=== PATIENT | male | born 1990 | race American Indian/Alaskan Native ===

== ENCOUNTER 2016-07-09 20:03 | Inpatient (IN) | payer OTHER ==
[~2016-07-09 20:03] MED LIST: ATIVAN IV ONE
[2016-07-09] MEDS ORDERED: NACL 0.9% 1000 ML 1,000 ML IV ONE ×2 (20:27→22:21)
[2016-07-09] MEDS ORDERED: ATIVAN IV ONE (20:27)
--- NOTE | 2016-07-09 20:35 | Emergency Department Report ---
ED Altered Mental Status HPI - General Stated Complaint: VOMITING BLOOD Time Seen by Provider: 07/09/16 20:26 - History of Present Illness Initial Comments: 25-year-old male with no past medical history brought in by ambulance due to confusion. Patient's sister states that she saw about 3 hours prior to calling EMS and he asked for some fruit, she went to go get him some of when she came back later at home she found him confused and unable to answer questions. She called EMS, and picked up the patient and apparently had vomited blood (I examined the vomitus which was patient bedside and did not appear to be bloody or dark) Patient has been at other ERs over the last week and has been diagnosed with both sinusitis and UTI and is currently on both Augmentin and levofloxacin as well as Motrin and Beattie. Patient is unable to give any history but his sister appears reliable and states that he is currently not using any drugs, last time used and he was marijuana about a month ago. She also states that he has no history of depression or thoughts of hurting himself in the past. No psychiatric history. - Related Data Home Medications Medication Instructions Recorded Confirmed Last Taken Amoxicillin/K Clav Tab [Augmentin 1 tab PO Q12HR 07/09/16 07/09/16 Unknown 875 mg] HYDROcodone/APAP 5-325 [Beattie 1 each PO Q4HR PRN 07/09/16 07/09/16 Unknown 5/325] Ibuprofen [Motrin] 800 mg PO Q8HR PRN 07/09/16 07/09/16 Unknown Levofloxacin [Levaquin TAB] 500 mg PO QDAY 07/09/16 07/09/16 Unknown Ondansetron [Zofran Odt] 4 mg PO Q8HR 07/09/16 07/09/16 Unknown Prednisone [predniSONE 10 mg 10 mg PO .TAPER 07/09/16 07/09/16 Unknown (6-Day Pack, 21 Tabs)] Allergies Allergy/AdvReac Type Severity Reaction Status Date / Time No Known Allergies Allergy Verified 11/06/15 04:00 ED Review of Systems ROS: Stated complaint: VOMITING BLOOD Other details as noted in HPI ED Past Medical Hx - Social History Smoking Status: Never Smoker Substance Use Type: None - Medications Home Medications: Home Medications Medication Instructions Recorded Confirmed Last Taken Type Amoxicillin/K Clav Tab [Augmentin 1 tab PO Q12HR 07/09/16 07/09/16 Unknown History 875 mg] HYDROcodone/APAP 5-325 [Beattie 1 each PO Q4HR PRN 07/09/16 07/09/16 Unknown History 5/325] Ibuprofen [Motrin] 800 mg PO Q8HR PRN 07/09/16 07/09/16 Unknown History Levofloxacin [Levaquin TAB] 500 mg PO QDAY 07/09/16 07/09/16 Unknown History Ondansetron [Zofran Odt] 4 mg PO Q8HR 07/09/16 07/09/16 Unknown History Prednisone [predniSONE 10 mg 10 mg PO .TAPER 07/09/16 07/09/16 Unknown History (6-Day Pack, 21 Tabs)] ED Physical Exam - General Limitations: Other (confused, not verbalizing, unable to follow commands, moves all extremities, appears delirious) General appearance: in distress - Head Head exam: Present: atraumatic - Eye Eye exam: Present: normal appearance, PERRL - ENT ENT exam: Present: normal exam - Respiratory Respiratory exam: Present: normal lung sounds bilaterally. Absent: respiratory distress - Cardiovascular Cardiovascular Exam: Present: regular rate, normal rhythm - GI/Abdominal GI/Abdominal exam: Present: soft, other (bladder is palpable and distended). Absent: tenderness - Neurological Exam Neurological exam: Present: other (unable to follow commands, moves all extremities spontaneously, confused and appears delirious) - Psychiatric Psychiatric exam: Present: other (agitated) - Skin Skin exam: Present: intact ED Course Vital Signs 07/09/16 07/09/16 07/09/16 20:10 20:15 20:25 Temperature 98.2 F Pulse Rate 57 L 59 L Respiratory 15 12 Rate Blood Pressure 153/87 145/85 O2 Sat by Pulse 98 87 97 Oximetry 07/09/16 07/09/16 07/09/16 20:30 20:45 21:00 Temperature Pulse Rate 59 L 61 53 L Respiratory 11 L 21 17 Rate Blood Pressure 137/73 147/85 114/84 O2 Sat by Pulse 93 95 95 Oximetry 07/09/16 07/09/16 07/09/16 21:07 21:15 21:21 Temperature Pulse Rate 60 57 L 56 L Respiratory 16 9 L 13 Rate Blood Pressure 155/93 136/67 O2 Sat by Pulse 98 93 96 Oximetry 07/09/16 07/09/16 07/09/16 21:25 21:26 21:31 Temperature Pulse Rate 60 57 L Respiratory 14 16 12 Rate Blood Pressure 142/77 102/65 O2 Sat by Pulse 96 97 Oximetry 07/09/16 07/09/16 07/09/16 21:35 21:40 21:45 Temperature Pulse Rate 59 L 55 L 50 L Respiratory 22 19 15 Rate Blood Pressure 152/72 131/71 161/71 O2 Sat by Pulse 92 96 87 Oximetry 07/09/16 07/09/16 07/09/16 21:51 21:55 22:00 Temperature Pulse Rate 53 L 77 91 H Respiratory 13 15 20 Rate Blood Pressure 175/91 163/92 181/94 O2 Sat by Pulse 84 90 88 Oximetry 07/09/16 07/09/16 07/09/16 22:39 22:45 23:00 Temperature Pulse Rate 66 74 60 Respiratory 16 17 27 H Rate Blood Pressure 163/79 163/79 135/86 O2 Sat by Pulse 98 96 Oximetry 07/09/16 07/09/16 07/09/16 23:15 23:30 23:45 Temperature Pulse Rate 66 63 65 Respiratory 21 24 22 Rate Blood Pressure 142/79 140/80 150/78 O2 Sat by Pulse 93 95 93 Oximetry - Reevaluation(s) Reevaluation #1: 07/10/16 00:28 Patient less agitated, spoke to patient's family including brother, sister and [id number], explained to them that the etiology of his symptoms isn't completely clear but may be due to anticholinergic syndrome. On reexamination his mental status has not improved however appears less agitated. CT of the head and abdominal pelvis CT are unremarkable, labs unremarkable and elevated lactic acid. We'll admit the patient. - Consultations Consultation #1: 07/09/16 23:04 Spoke to scraper operator at poison control center, think that this may be due to an anticholinergic toxicity but not completely fitting picture given the lack of tachycardia and normal pupil exam. Recommend supportive medical treatment. - Lab Data Result diagrams: 07/09/16 20:40 07/09/16 20:40 Lab Results 07/09/16 07/09/16 07/09/16 Range/Units 20:12 20:35 20:35 WBC (4.5-11.0) K/mm3 RBC (3.65-5.03) M/mm3 Hgb (11.8-15.2) gm/dl Hct (35.5-45.6) % MCV (84-94) fl MCH (28-32) pg MCHC (32-34) % RDW (13.2-15.2) % Plt Count (140-440) K/mm3 Lymph % (Auto) (13.4-35.0) % [place] % (Auto) (0.0-7.3) % Eos % (Auto) (0.0-4.3) % Baso % (Auto) (0.0-1.8) % Lymph # (1.2-5.4) K/mm3 [place] # (0.0-0.8) K/mm3 Eos # (0.0-0.4) K/mm3 Baso # (0.0-0.1) K/mm3 Seg Neutrophils % (40.0-70.0) % Seg Neutrophils # (1.8-7.7) K/mm3 PT (12.2-14.9) Sec. INR (0.87-1.13) APTT (24.2-36.6) Sec. Sodium (137-145) mmol/L Potassium (3.6-5.0) mmol/L Chloride (98-107) mmol/L Carbon Dioxide (22-30) mmol/L Anion Gap mmol/L BUN (9-20) mg/dL Creatinine (0.8-1.5) mg/dL Estimated GFR ml/min BUN/Creatinine Ratio % Glucose (75-100) mg/dL POC Glucose 144 H (70-105) Lactic Acid (0.7-2.0) mmol/L Calcium (8.4-10.2) mg/dL Total Bilirubin (0.1-1.2) mg/dL Direct Bilirubin (0-0.2) mg/dL Indirect Bilirubin mg/dL AST (5-40) units/L ALT (7-56) units/L Alkaline Phosphatase (35-129) units/L Ammonia (25-60) umol/L Troponin T (0.00-0.029) ng/mL Total Protein (6.3-8.2) g/dL Albumin (3.9-5) g/dL Albumin/Globulin Ratio % TSH (0.270-4.200) mlU/mL Urine Color Yellow (Yellow) Urine Turbidity Clear (Clear) Urine pH 6.0 (5.0-7.0) Ur Specific [place] 1.015 (1.003-1.030) Urine Protein 30 mg/dl (Negative) mg/dL Urine Glucose (UA) 50 (Negative) mg/dL Urine Ketones Tr (Negative) mg/dL Urine Blood Mod (Negative) Urine Nitrite Neg (Negative) Urine Bilirubin Neg (Negative) Urine Urobilinogen < 2.0 (<2.0) mg/dL Ur Leukocyte Esterase Neg (Negative) Urine WBC (Auto) 1.0 (0.0-6.0) /HPF Urine RBC (Auto) 2.0 (0.0-6.0) /HPF Urine Mucus Few /HPF Salicylates (2.8-20.0) mg/dL Urine Opiates Screen Presumptive negative Urine Methadone Screen Presumptive negative Acetaminophen (10.0-30.0) ug/mL Ur Barbiturates Screen Presumptive negative Ur Phencyclidine Scrn Presumptive negative Ur Amphetamines Screen Presumptive negative U Benzodiazepines Scrn Presumptive negative Urine Cocaine Screen Presumptive negative U Marijuana (THC) Screen Presumptive negative Drugs of Abuse Note Disclamer Plasma/Serum Alcohol (0-0.07) gm% Blood Type Antibody Screen EDSON Antibody Screen 07/09/16 07/09/16 07/09/16 Range/Units 20:35 20:40 20:40 WBC 5.4 (4.5-11.0) K/mm3 RBC 3.96 (3.65-5.03) M/mm3 Hgb 12.7 (11.8-15.2) gm/dl Hct 36.6 (35.5-45.6) % MCV 92 (84-94) fl MCH 32 (28-32) pg MCHC 35 H (32-34) % RDW 13.2 (13.2-15.2) % Plt Count 143 (140-440) K/mm3 Lymph % (Auto) 6.4 L (13.4-35.0) % [place] % (Auto) 7.0 (0.0-7.3) % Eos % (Auto) 0.1 (0.0-4.3) % Baso % (Auto) 0.1 (0.0-1.8) % Lymph # 0.3 L (1.2-5.4) K/mm3 [place] # 0.4 (0.0-0.8) K/mm3 Eos # 0.0 (0.0-0.4) K/mm3 Baso # 0.0 (0.0-0.1) K/mm3 Seg Neutrophils % 86.4 H (40.0-70.0) % Seg Neutrophils # 4.6 (1.8-7.7) K/mm3 PT 14.2 (12.2-14.9) Sec. INR 1.11 (0.87-1.13) APTT 24.4 (24.2-36.6) Sec. Sodium (137-145) mmol/L Potassium (3.6-5.0) mmol/L Chloride (98-107) mmol/L Carbon Dioxide (22-30) mmol/L Anion Gap mmol/L BUN (9-20) mg/dL Creatinine (0.8-1.5) mg/dL Estimated GFR ml/min BUN/Creatinine Ratio % Glucose (75-100) mg/dL POC Glucose (70-105) Lactic Acid (0.7-2.0) mmol/L Calcium (8.4-10.2) mg/dL Total Bilirubin (0.1-1.2) mg/dL Direct Bilirubin (0-0.2) mg/dL Indirect Bilirubin mg/dL AST (5-40) units/L ALT (7-56) units/L Alkaline Phosphatase (35-129) units/L Ammonia (25-60) umol/L Troponin T (0.00-0.029) ng/mL Total Protein (6.3-8.2) g/dL Albumin (3.9-5) g/dL Albumin/Globulin Ratio % TSH (0.270-4.200) mlU/mL Urine Color (Yellow) Urine Turbidity (Clear) Urine pH (5.0-7.0) Ur Specific [place] (1.003-1.030) Urine Protein (Negative) mg/dL Urine Glucose (UA) (Negative) mg/dL Urine Ketones (Negative) mg/dL Urine Blood (Negative) Urine Nitrite (Negative) Urine Bilirubin (Negative) Urine Urobilinogen (<2.0) mg/dL Ur Leukocyte Esterase (Negative) Urine WBC (Auto) (0.0-6.0) /HPF Urine RBC (Auto) (0.0-6.0) /HPF Urine Mucus /HPF Salicylates (2.8-20.0) mg/dL Urine Opiates Screen Urine Methadone Screen Acetaminophen (10.0-30.0) ug/mL Ur Barbiturates Screen Ur Phencyclidine Scrn Ur Amphetamines Screen U Benzodiazepines Scrn Urine Cocaine Screen U Marijuana (THC) Screen Drugs of Abuse Note Plasma/Serum Alcohol (0-0.07) gm% Blood Type AB POSITIVE Antibody Screen TNR EDSON Antibody Screen Negative 07/09/16 07/09/16 07/09/16 Range/Units 20:40 20:40 20:40 WBC (4.5-11.0) K/mm3 RBC (3.65-5.03) M/mm3 Hgb (11.8-15.2) gm/dl Hct (35.5-45.6) % MCV (84-94) fl MCH (28-32) pg MCHC (32-34) % RDW (13.2-15.2) % Plt Count (140-440) K/mm3 Lymph % (Auto) (13.4-35.0) % [place] % (Auto) (0.0-7.3) % Eos % (Auto) (0.0-4.3) % Baso % (Auto) (0.0-1.8) % Lymph # (1.2-5.4) K/mm3 [place] # (0.0-0.8) K/mm3 Eos # (0.0-0.4) K/mm3 Baso # (0.0-0.1) K/mm3 Seg Neutrophils % (40.0-70.0) % Seg Neutrophils # (1.8-7.7) K/mm3 PT (12.2-14.9) Sec. INR (0.87-1.13) APTT (24.2-36.6) Sec. Sodium 133 L (137-145) mmol/L Potassium 4.0 (3.6-5.0) mmol/L Chloride 94.1 L (98-107) mmol/L Carbon Dioxide 24 (22-30) mmol/L Anion Gap 19 mmol/L BUN 14 (9-20) mg/dL Creatinine 0.6 L (0.8-1.5) mg/dL Estimated GFR > 60 ml/min BUN/Creatinine Ratio 23.33 % Glucose 136 H (75-100) mg/dL POC Glucose (70-105) Lactic Acid 3.10 H* (0.7-2.0) mmol/L Calcium 8.7 (8.4-10.2) mg/dL Total Bilirubin 0.80 (0.1-1.2) mg/dL Direct Bilirubin 0.2 (0-0.2) mg/dL Indirect Bilirubin 0.6 mg/dL AST 29 (5-40) units/L ALT 16 (7-56) units/L Alkaline Phosphatase 60 (35-129) units/L Ammonia 42.0 (25-60) umol/L Troponin T < 0.010 (0.00-0.029) ng/mL Total Protein 6.7 (6.3-8.2) g/dL Albumin 3.8 L (3.9-5) g/dL Albumin/Globulin Ratio 1.3 % TSH (0.270-4.200) mlU/mL Urine Color (Yellow) Urine Turbidity (Clear) Urine pH (5.0-7.0) Ur Specific [place] (1.003-1.030) Urine Protein (Negative) mg/dL Urine Glucose (UA) (Negative) mg/dL Urine Ketones (Negative) mg/dL Urine Blood (Negative) Urine Nitrite (Negative) Urine Bilirubin (Negative) Urine Urobilinogen (<2.0) mg/dL Ur Leukocyte Esterase (Negative) Urine WBC (Auto) (0.0-6.0) /HPF Urine RBC (Auto) (0.0-6.0) /HPF Urine Mucus /HPF Salicylates (2.8-20.0) mg/dL Urine Opiates Screen Urine Methadone Screen Acetaminophen (10.0-30.0) ug/mL Ur Barbiturates Screen Ur Phencyclidine Scrn Ur Amphetamines Screen U Benzodiazepines Scrn Urine Cocaine Screen U Marijuana (THC) Screen Drugs of Abuse Note Plasma/Serum Alcohol (0-0.07) gm% Blood Type Antibody Screen EDSON Antibody Screen 07/09/16 07/09/16 07/09/16 Range/Units 20:40 20:40 20:40 WBC (4.5-11.0) K/mm3 RBC (3.65-5.03) M/mm3 Hgb (11.8-15.2) gm/dl Hct (35.5-45.6) % MCV (84-94) fl MCH (28-32) pg MCHC (32-34) % RDW (13.2-15.2) % Plt Count (140-440) K/mm3 Lymph % (Auto) (13.4-35.0) % [place] % (Auto) (0.0-7.3) % Eos % (Auto) (0.0-4.3) % Baso % (Auto) (0.0-1.8) % Lymph # (1.2-5.4) K/mm3 [place] # (0.0-0.8) K/mm3 Eos # (0.0-0.4) K/mm3 Baso # (0.0-0.1) K/mm3 Seg Neutrophils % (40.0-70.0) % Seg Neutrophils # (1.8-7.7) K/mm3 PT (12.2-14.9) Sec. INR (0.87-1.13) APTT (24.2-36.6) Sec. Sodium (137-145) mmol/L Potassium (3.6-5.0) mmol/L Chloride (98-107) mmol/L Carbon Dioxide (22-30) mmol/L Anion Gap mmol/L BUN (9-20) mg/dL Creatinine (0.8-1.5) mg/dL Estimated GFR ml/min BUN/Creatinine Ratio % Glucose (75-100) mg/dL POC Glucose (70-105) Lactic Acid (0.7-2.0) mmol/L Calcium (8.4-10.2) mg/dL Total Bilirubin (0.1-1.2) mg/dL Direct Bilirubin (0-0.2) mg/dL Indirect Bilirubin mg/dL AST (5-40) units/L ALT (7-56) units/L Alkaline Phosphatase (35-129) units/L Ammonia (25-60) umol/L Troponin T (0.00-0.029) ng/mL Total Protein (6.3-8.2) g/dL Albumin (3.9-5) g/dL Albumin/Globulin Ratio % TSH 2.610 (0.270-4.200) mlU/mL Urine Color (Yellow) Urine Turbidity (Clear) Urine pH (5.0-7.0) Ur Specific [place] (1.003-1.030) Urine Protein (Negative) mg/dL Urine Glucose (UA) (Negative) mg/dL Urine Ketones (Negative) mg/dL Urine Blood (Negative) Urine Nitrite (Negative) Urine Bilirubin (Negative) Urine Urobilinogen (<2.0) mg/dL Ur Leukocyte Esterase (Negative) Urine WBC (Auto) (0.0-6.0) /HPF Urine RBC (Auto) (0.0-6.0) /HPF Urine Mucus /HPF Salicylates < 0.3 L (2.8-20.0) mg/dL Urine Opiates Screen Urine Methadone Screen Acetaminophen < 15.0 (10.0-30.0) ug/mL Ur Barbiturates Screen Ur Phencyclidine Scrn Ur Amphetamines Screen U Benzodiazepines Scrn Urine Cocaine Screen U Marijuana (THC) Screen Drugs of Abuse Note Plasma/Serum Alcohol (0-0.07) gm% Blood Type Antibody Screen EDSON Antibody Screen 07/09/16 Range/Units 20:40 WBC (4.5-11.0) K/mm3 RBC (3.65-5.03) M/mm3 Hgb (11.8-15.2) gm/dl Hct (35.5-45.6) % MCV (84-94) fl MCH (28-32) pg MCHC (32-34) % RDW (13.2-15.2) % Plt Count (140-440) K/mm3 Lymph % (Auto) (13.4-35.0) % [place] % (Auto) (0.0-7.3) % Eos % (Auto) (0.0-4.3) % Baso % (Auto) (0.0-1.8) % Lymph # (1.2-5.4) K/mm3 [place] # (0.0-0.8) K/mm3 Eos # (0.0-0.4) K/mm3 Baso # (0.0-0.1) K/mm3 Seg Neutrophils % (40.0-70.0) % Seg Neutrophils # (1.8-7.7) K/mm3 PT (12.2-14.9) Sec. INR (0.87-1.13) APTT (24.2-36.6) Sec. Sodium (137-145) mmol/L Potassium (3.6-5.0) mmol/L Chloride (98-107) mmol/L Carbon Dioxide (22-30) mmol/L Anion Gap mmol/L BUN (9-20) mg/dL Creatinine (0.8-1.5) mg/dL Estimated GFR ml/min BUN/Creatinine Ratio % Glucose (75-100) mg/dL POC Glucose (70-105) Lactic Acid (0.7-2.0) mmol/L Calcium (8.4-10.2) mg/dL Total Bilirubin (0.1-1.2) mg/dL Direct Bilirubin (0-0.2) mg/dL Indirect Bilirubin mg/dL AST (5-40) units/L ALT (7-56) units/L Alkaline Phosphatase (35-129) units/L Ammonia (25-60) umol/L Troponin T (0.00-0.029) ng/mL Total Protein (6.3-8.2) g/dL Albumin (3.9-5) g/dL Albumin/Globulin Ratio % TSH (0.270-4.200) mlU/mL Urine Color (Yellow) Urine Turbidity (Clear) Urine pH (5.0-7.0) Ur Specific [place] (1.003-1.030) Urine Protein (Negative) mg/dL Urine Glucose (UA) (Negative) mg/dL Urine Ketones (Negative) mg/dL Urine Blood (Negative) Urine Nitrite (Negative) Urine Bilirubin (Negative) Urine Urobilinogen (<2.0) mg/dL Ur Leukocyte Esterase (Negative) Urine WBC (Auto) (0.0-6.0) /HPF Urine RBC (Auto) (0.0-6.0) /HPF Urine Mucus /HPF Salicylates (2.8-20.0) mg/dL Urine Opiates Screen Urine Methadone Screen Acetaminophen (10.0-30.0) ug/mL Ur Barbiturates Screen Ur Phencyclidine Scrn Ur Amphetamines Screen U Benzodiazepines Scrn Urine Cocaine Screen U Marijuana (THC) Screen Drugs of Abuse Note Plasma/Serum Alcohol < 0.01 (0-0.07) gm% Blood Type Antibody Screen EDSON Antibody Screen - Medical Decision Making Finger stick, EKG, IV, labs, IV fluids, Ativan Bedside also understand and showed a distended bladder, Huntley placed with 1500 mL output, right upper quadrant ultrasound was also done which showed a small amount of free fluid in the hepatorenal space Rectal temperature normal ED of head as well as CT the abdomen and pelvis ordered Critical care attestation.: If time is entered above; I have spent that time in minutes in the direct care of this critically ill patient, excluding procedure time. ED Disposition Clinical Impression: Delirium Disposition: OP ADMITTED IP TO THIS HOSP Is pt being admited?: Yes Does the pt Need Aspirin: No Condition: Stable Referrals: PRIMARY CARE, [Primary Care Provider] - 3-5 Days Time of Disposition: 00:29 (Spoke to Dr. Restrepo, will admit)
[2016-07-09 20:53] LABS: Basophils % (Auto) 0.1 % (0.0-1.8); Eosinophils % (Auto) 0.1 % (0.0-4.3); Hematocrit 36.6 % (35.5-45.6); Hemoglobin 12.7 gm/dl (11.8-15.2); Mean Corpuscular HGB Conc 35 % (32-34); Mean Corpuscular Hemoglobin 32 pg (28-32); Mean Corpuscular Volume 92 fl (84-94); Platelet Count 143 K/mm3 (140-440); Red Blood Count 3.96 M/mm3 (3.65-5.03); Red Cell Distribution Width 13.2 % (13.2-15.2); White Blood Count 5.4 K/mm3 (4.5-11.0)
[2016-07-09] MEDS ORDERED: NACL ONE (21:06)
[2016-07-09 21:08] LABS: Urine Drugs of Abuse Note Disclamer
[2016-07-09 21:09] LABS: INR 1.11 (0.87-1.13)
[2016-07-09 21:10] LABS: Partial Thromboplastin Time 24.4 Sec. (24.2-36.6)
[2016-07-09 21:17] LABS: Alanine Aminotransferase 16 units/L (7-56); Albumin 3.8 g/dL (3.9-5); Albumin/Globulin Ratio 1.3 %; Alkaline Phosphatase 60 units/L (35-129); Anion Gap 19 mmol/L; BUN/Creatinine Ratio 23.33; Bilirubin,Direct 0.2 mg/dL (0-0.2); Bilirubin,Indirect 0.6 mg/dL; Blood Urea Nitrogen 14 mg/dL (9-20); Calcium 8.7 mg/dL (8.4-10.2); Carbon Dioxide 24 mmol/L (22-30); Chloride 94.1 mmol/L (98-107); Glucose 136 mg/dL (75-100); Sodium 133 mmol/L (137-145); Total Protein 6.7 g/dL (6.3-8.2)
[2016-07-09 21:19] LABS: Bilirubin,Urine NEG (Negative); Blood,Urine MOD (Negative); Ketones,Urine TR mg/dL (Negative); Leukocyte Esterase,Urine NEG (Negative); Mucus,Urine FEW /HPF; Nitrite,Urine NEG (Negative); Urobilinogen,Urine < 2.0 mg/dL (<2.0)
[2016-07-09] MEDS ORDERED: ATIVAN ONE (22:12)
--- NOTE | 2016-07-09 23:46 | Cat Scan Report ---
FINAL REPORT EXAM: CT HEAD/BRAIN WO CON HISTORY: Altered Mental Status TECHNIQUE: Noncontrast CT axial images of the brain. PRIORS: None. FINDINGS: No parenchymal mass, mass effect, hemorrhage, midline shift or hydrocephalus. No evidence of acute cortical infarct. No abnormal, extra-axial fluid or air collection. Osseous calvarium grossly intact. Probable mucous retention cyst versus polyp in the left ethmoid air cell. IMPRESSION: 1. No acute intracranial findings.
--- NOTE | 2016-07-09 23:53 | Cat Scan Report ---
FINAL REPORT EXAM: CT ABDOMEN PELVIS W CON HISTORY: abd pain vomiting, ams, u/s shows free fluid ruq TECHNIQUE: Spiral CT scanning of the abdomen and pelvis after the uneventful administration of IV contrast. Multiplanar reformations. 100 mL Omnipaque IV. PRIORS: 06 November 2015. FINDINGS: Abdomen: Motion artifact limits examination somewhat. Visualized lung bases grossly unremarkable. No radiopaque gallstones. Liver without significant abnormality. Spleen without significant abnormality. Pancreas without significant abnormality. Kidneys without significant abnormality. Adrenal glands without significant abnormality. Pelvis: Bowel evaluation limited due to lack of oral contrast administration, but grossly unremarkable. Appendix is not confidently identified. No significant free peritoneal fluid or discrete abscess. Abdominal aorta non-aneurysmal. Huntley catheter balloon and some gas noted within the urinary bladder. IMPRESSION: 1. No acute findings.
--- NOTE | 2016-07-10 01:20 | History and Physical Report ---
History of Present Illness Chief complaint: Unresponsive History of present illness: 25 YO Male with No PMH presents to ED for evaluation. Pt unresponsive and unable to provide history. Pt sister is at bedside and provides history. Pt family states that pt has experienced headache, and not feeling well over the past 7 days with worsening symptoms over the past 3 hours. Pt has experienced multiple ED visits and was prescribed oral antibiotics without relief. Pt was in his usual state of health 3 hours prior to calling EMS. Pt asked sister for some fruit and when she returned pt was found unconscious and unresponsive. EMS notified. Pt experienced a seizure as per sister while waiting for EMS transport. Pt sister also states that pt vomited blood. Pt recently incarcerated , but sister denies known tick bites, animal bites, photophobia, known exposure to rabies, known TB exposure, skin rash, trauma, drug use, hematuria, HIV risk factors, tetanus exposure. Past History Past Medical History: No medical history, other (reviewed) Past Surgical History: No surgical history, Other (reviewed) Social history: single, lives with family Family history: hypertension Medications and Allergies Allergies Allergy/AdvReac Type Severity Reaction Status Date / Time No Known Allergies Allergy Verified 11/06/15 04:00 Home Medications Medication Instructions Recorded Confirmed Last Taken Type Amoxicillin/K Clav Tab [Augmentin 1 tab PO Q12HR 07/09/16 07/09/16 Unknown History 875 mg] HYDROcodone/APAP 5-325 [[place] 1 each PO Q4HR PRN 07/09/16 07/09/16 Unknown History 5/325] Ibuprofen [Motrin] 800 mg PO Q8HR PRN 07/09/16 07/09/16 Unknown History Levofloxacin [Levaquin TAB] 500 mg PO QDAY 07/09/16 07/09/16 Unknown History Ondansetron [Zofran Odt] 4 mg PO Q8HR 07/09/16 07/09/16 Unknown History Prednisone [predniSONE 10 mg 10 mg PO .TAPER 07/09/16 07/09/16 Unknown History (6-Day Pack, 21 Tabs)] Review of Systems ROS unobtainable: due to mental status Exam - Constitutional Vitals: Temp Pulse Resp BP Pulse Ox 98.2 F 68 27 H 135/72 97 07/09/16 20:25 07/10/16 00:31 07/10/16 00:31 07/10/16 00:31 07/10/16 00:31 General appearance: Present: mild distress - EENT Eyes: Present: PERRL ENT: hearing intact, clear oral mucosa - Neck Neck: Present: supple, normal ROM - Respiratory Respiratory effort: normal Respiratory: bilateral: CTA - Cardiovascular Heart Sounds: Present: S1 & S2. Absent: rub, click - Extremities Extremities: pulses symmetrical, No edema Peripheral Pulses: within normal limits - Abdominal General gastrointestinal: Present: soft, non-tender, non-distended, normal bowel sounds Male genitourinary: Present: normal - Integumentary Integumentary: Present: clear, warm, dry - Musculoskeletal Musculoskeletal: generalized weakness - Psychiatric Psychiatric: no intact judgment & insight, no memory intact - Neurologic Neurologic: CNII-XII intact, no gait normal Results - Labs CBC & Chem 7: 07/09/16 20:40 07/09/16 20:40 Labs: Abnormal lab results 07/09/16 07/09/16 07/09/16 Range/Units 20:12 20:40 20:40 MCHC 35 H (32-34) % Lymph % (Auto) 6.4 L (13.4-35.0) % Lymph # 0.3 L (1.2-5.4) K/mm3 Seg Neutrophils % 86.4 H (40.0-70.0) % Sodium 133 L (137-145) mmol/L Chloride 94.1 L (98-107) mmol/L Creatinine 0.6 L (0.8-1.5) mg/dL Glucose 136 H (75-100) mg/dL POC Glucose 144 H (70-105) Lactic Acid (0.7-2.0) mmol/L Albumin 3.8 L (3.9-5) g/dL Salicylates (2.8-20.0) mg/dL 07/09/16 07/09/16 Range/Units 20:40 20:40 MCHC (32-34) % Lymph % (Auto) (13.4-35.0) % Lymph # (1.2-5.4) K/mm3 Seg Neutrophils % (40.0-70.0) % Sodium (137-145) mmol/L Chloride (98-107) mmol/L Creatinine (0.8-1.5) mg/dL Glucose (75-100) mg/dL POC Glucose (70-105) Lactic Acid 3.10 H* (0.7-2.0) mmol/L Albumin (3.9-5) g/dL Salicylates < 0.3 L (2.8-20.0) mg/dL Assessment and Plan - Patient Problems (1) Encephalopathy acute Current Visit: Yes Status: Acute Plan to address problem: Will treat patient with empiric thearpy: Acyclovir, IV abx, HSV titre, Rapid HIV , IR consulted for LP, supportive care, CT Head, CT abdomen pelvis, ESR, CRP (2) Seizure Current Visit: Yes Status: Acute Plan to address problem: Keppra loading dose, EEG, supportive care. (3) Lactic acidosis Current Visit: Yes Status: Acute Plan to address problem: IVF, supportive care, monitor uop q shift, lactic acid in am. (4) DVT prophylaxis Current Visit: Yes Status: Acute
--- NOTE | 2016-07-10 02:09 | XRay Report ---
FINAL REPORT EXAM: XR ABDOMEN 1V AP HISTORY: s/p ng TECHNIQUE: KUB view of abdomen. PRIORS: None. FINDINGS: NG tube extends below the diaphragm, with tip projected over left upper quadrant. Nonspecific bowel gas pattern without evidence of mechanical obstruction. No apparent pneumoperitoneum. No abnormal calcifications. Osseous structures grossly unremarkable. Opacification of urinary bladder. IMPRESSION: 1. NG tube position as reported. 2. Nonspecific bowel gas pattern, which may represent adynamic ileus. Followup may be warranted.
[2016-07-10] MEDS ORDERED: VANCOMYCIN/NS 1 GM/250 ML 1 GM/250 ML BAG IV ONE (02:12)
[2016-07-10] MEDS ORDERED: VANCOMYCIN VIAL IV ONE (02:13)
[2016-07-10] MEDS ORDERED: TYLENOL PO PRN (02:14)
[2016-07-10] MEDS ORDERED: DULCOLAX PR PRN (02:14)
[2016-07-10] MEDS ORDERED: ZOFRAN IV PRN (02:14)
[2016-07-10] MEDS ORDERED: DUONEB 0.5 MG-3 MG/3 ML SOLN IH PRN (02:14)
[2016-07-10] MEDS ORDERED: MILK OF MAGNESIA PO PRN (02:14)
[2016-07-10] MEDS ORDERED: PROVENTIL IH PRN (02:39)
[2016-07-10] MEDS ORDERED: NACL 0.45% 1000 ML 1,000 ML IV SCH (03:00)
[2016-07-10] MEDS ORDERED: VANCOMYCIN PHARMACY TO DOSE IV SCH (03:00)
[2016-07-10 03:36] LABS: Erythrocyte Sedimentation Rate 9 mm/Hr (0-20); HIV-1 Antigen p24 Non React (Non React); HIVR-1/2 Ab Non React (Non React)
[2016-07-10] MEDS ORDERED: VANCOMYCIN 1,500 MG in NACL 0.9% 500 ML 500 ML IV ONE (04:00)
[2016-07-10] MEDS: NACL 0.9% IV SCH ×3 (06:24→21:28)
[2016-07-10] MEDS: ZOVIRAX IV SCH ×3 (06:24→21:28)
[2016-07-10] MEDS: KEPPRA 500 MG in D5W 100 ML IV SCH ×2 (09:21→22:10)
[2016-07-10] MEDS: ROCEPHIN/NS 2 GM/100 ML 2 GM/100 ML BAG IV SCH ×2 (10:38→23:29)
--- NOTE | 2016-07-10 11:12 | XRay Report ---
AP CHEST : 07/09/16 20:03:00 CLINICAL: Altered mental status. COMPARISON:None FINDINGS: Normal heart and pulmonary vessels. The lungs are normally expanded and clear. The bones and soft tissues are unremarkable. IMPRESSION: Normal chest.
[2016-07-10] MEDS: VANCOMYCIN 1,250 MG in NACL 0.9% 250ML 250 ML IV SCH ×2 (12:00→20:43)
[2016-07-10] MEDS ORDERED: ATIVAN IV PRN (13:54)
[2016-07-10] MEDS ORDERED: APRESOLINE IV PRN (13:59)
--- NOTE | 2016-07-10 14:37 | Event Note ---
Date: 07/10/16 Patient got intubated for airway protection and aspiration.
[2016-07-10 14:50] LABS: Hematocrit 41.4 % (35.5-45.6); Mean Corpuscular HGB Conc 34 % (32-34); Mean Corpuscular Hemoglobin 32 pg (28-32); Mean Corpuscular Volume 93 fl (84-94); Platelet Count 169 K/mm3 (140-440); Red Blood Count 4.46 M/mm3 (3.65-5.03); White Blood Count 9.7 K/mm3 (4.5-11.0)
[2016-07-10 15:01] LABS: Anion Gap 19 mmol/L; Blood Urea Nitrogen 11 mg/dL (9-20); Calcium 9.1 mg/dL (8.4-10.2); Carbon Dioxide 22 mmol/L (22-30); Chloride 93.8 mmol/L (98-107); Glucose 149 mg/dL (75-100); Potassium 3.7 mmol/L (3.6-5.0); Sodium 131 mmol/L (137-145)
--- NOTE | 2016-07-10 15:07 | Consultation ---
History of Present Illness Consult date: 07/10/16 Requesting physician: MALIA PETERSON Reason for consult: pneumonia, other (Acute Encephalopathy) History of present illness: PULMONARY/CCM CONSULT NOTE (Full dictation # [id number]) Please see dictated notes for full details Past History Past Medical History: No medical history, other (reviewed) Past Surgical History: No surgical history, Other (reviewed) Social history: single, lives with family Family history: hypertension Medications and Allergies Allergies Allergy/AdvReac Type Severity Reaction Status Date / Time No Known Allergies Allergy Verified 11/06/15 04:00 Home Medications Medication Instructions Recorded Confirmed Last Taken Type Amoxicillin/K Clav Tab [Augmentin 1 tab PO Q12HR 07/09/16 07/09/16 Unknown History 875 mg] HYDROcodone/APAP 5-325 [Gilman 1 each PO Q4HR PRN 07/09/16 07/09/16 Unknown History 5/325] Ibuprofen [Motrin] 800 mg PO Q8HR PRN 07/09/16 07/09/16 Unknown History Levofloxacin [Levaquin TAB] 500 mg PO QDAY 07/09/16 07/09/16 Unknown History Ondansetron [Zofran Odt] 4 mg PO Q8HR 07/09/16 07/09/16 Unknown History Prednisone [predniSONE 10 mg 10 mg PO .TAPER 07/09/16 07/09/16 Unknown History (6-Day Pack, 21 Tabs)] Active Meds: Active Medications Acetaminophen (Tylenol) 650 mg PO Q4H PRN PRN Reason: Pain MILD(1-3)/Fever >100.5/GUTIERREZ Albuterol (Proventil) 2.5 mg IH Q6HRT PRN PRN Reason: Shortness Of Breath Bisacodyl (Dulcolax) 10 mg CO QDAY PRN PRN Reason: Constipation unrelieved by MOM Hydralazine HCl (Apresoline) 5 mg IV Q30MIN PRN PRN Reason: Hypertension Acyclovir 770 mg/ Sodium (Chloride) 115.4 mls @ 100 mls/hr IV Q8HR DANNY PRN Reason: Protocol Last Admin: 07/10/16 06:24 Dose: 100 mls/hr Sodium Chloride (Nacl 0.45% 1000 Ml) 1,000 mls @ 125 mls/hr IV DIRECT DANNY Last Admin: 07/10/16 04:20 Dose: 125 mls/hr Vancomycin HCl 1,250 mg/ (Sodium Chloride) 275 mls @ 166.667 mls/hr IV Q8H [facility] Last Admin: 07/10/16 12:00 Dose: 166.667 mls/hr Levetiracetam 500 mg/ Dextrose 105 mls @ 400 mls/hr IV Q12HR [facility] Last Admin: 07/10/16 09:21 Dose: 400 mls/hr Ceftriaxone Sodium (Rocephin/Ns 2 Gm/100 Ml) 2 gm in 100 mls @ 200 mls/hr IV Q12HR [facility] Last Admin: 07/10/16 10:38 Dose: 200 mls/hr Lorazepam (Ativan) 2 mg IV Q4H PRN PRN Reason: Agitation Last Admin: 07/10/16 14:04 Dose: 2 mg Magnesium Hydroxide (Milk Of Magnesia) 30 ml PO Q4H PRN PRN Reason: Constipation Ondansetron HCl (Zofran) 4 mg IV Q8H PRN PRN Reason: N/V unrelieved by Areli Vancomycin HCl (Vancomycin Pharmacy To Dose) 1 each IV PKCONSULT DANNY PRN Reason: Protocol Physical Examination Vital signs: Vital Signs Pulse Ox 98 07/09/16 20:10 Results - Laboratory Findings CBC and BMP: 07/10/16 14:36 07/10/16 14:36 PT/INR, D-dimer PT 14.2 Sec. (12.2-14.9) 07/09/16 20:40 INR 1.11 (0.87-1.13) 07/09/16 20:40 Abnormal lab findings: Abnormal Labs 07/10/16 07/10/16 14:36 14:36 RDW 13.0 L Sodium 131 L Chloride 93.8 L Creatinine 0.5 L Glucose 149 H
[2016-07-10] MEDS ORDERED: DIPRIVAN 10 MG/ML 1,000 MG/100 ML BOTTLE IV ONE (15:18)
[2016-07-10] MEDS ORDERED: NACL 0.9% 1,000 ML IR ONE (15:42)
[2016-07-10] MEDS ORDERED: XYLOCAINE 2% INFILTRATI ONE (15:43)
[2016-07-10] MEDS: DIPRIVAN 10 MG/ML 1,000 MG/100 ML BOTTLE IV SCH ×2 (15:45→23:44)
[2016-07-10] MEDS ORDERED: ARTIFICIAL TEARS OPHTH OINT OU PRN (15:46)
[2016-07-10] MEDS ORDERED: VASELINE LIP THERAPY TP PRN (15:46)
[2016-07-10 15:48] LABS: ISTAT Base Excess 0; ISTAT HCO3 23.9; ISTAT PCO2 34.2 (35-45); ISTAT PH 7.453 (7.35-7.45); ISTAT PO2 28 (80-105); ISTAT SO2 58; ISTAT TCO2 25
[2016-07-10] MEDS ORDERED: fentaNYL DRIP Premix 2,000 MCG/100 ML BAG IV SCH (16:00)
--- NOTE | 2016-07-10 16:37 | XRay Report ---
FINAL REPORT PROCEDURE: XR CHEST 1V AP TECHNIQUE: Chest radiograph anteroposterior view. CPT 74039 HISTORY: ETT localization COMPARISON: No prior studies are available for comparison. FINDINGS: Heart: Normal. Mediastinum/Vessels: Normal contour. Lungs/Pleural space: There are extensive patchy bilateral airspace opacities. No effusion or pneumothorax is seen. Bony thorax: No acute osseous abnormality. Life support devices: The endotracheal tube tip projects 6 centimeters superior to the seb. Nasogastric tube side-hole is in the mid esophagus and should be advanced 15 centimeters into the stomach. IMPRESSION: Extensive bilateral pulmonary infiltrates. Endotracheal tube tip projects 6 centimeters superior to the seb. Nasogastric tube should be advanced into the stomach as described above.
[2016-07-10] MEDS ORDERED: NACL 0.9% 1000 ML 1,000 ML ONE (17:16)
[2016-07-10] MEDS ORDERED: ZEMURON IV ONE (17:41)
[2016-07-10] MEDS ORDERED: NACL 0.9% 1000 ML 1,000 ML IV ONE (18:02)
[2016-07-10 18:21] LABS: ISTAT Base Excess 0; ISTAT HCO3 24.4; ISTAT PCO2 37.7 (35-45); ISTAT PH 7.418 (7.35-7.45); ISTAT PO2 124 (80-105); ISTAT SO2 99; ISTAT TCO2 26
[2016-07-10] MEDS ORDERED: NACL 0.9% 1000 ML 1,000 ML IV SCH (19:00)
--- NOTE | 2016-07-10 20:17 | Admit Criteria Form ---
Admission Criteria Documentation: MENTAL STATUS CHANGE Clinical Indications for Inpatient Care (Place 'X' for any and all applicable criteria): Ongoing inpatient care may be needed for 1 or more of the following(1)(2)(3)(5)( 6): [ X]I. Suspected serious etiology (eg, medical disorder, SEO INTERN event) of altered mental status [ ]II. Danger to self or others not manageable at lower level of care [ ]III. Grave disability (eg, inability to perform self care necessary at lower level of care) [ ]IV. Agitation or inappropriate behavior interfering with care for primary condition (eg, attempting to discontinue lines or drains prematurely, unable to cooperate with respiratory care) [ ]V. Delirium [A] [D][E] as described by 1 or more of the following(26): [ ]a) Delirium due to alcohol or sedative [F] withdrawal [ ]b) Delirium of uncertain etiology that has not responded to appropriate empiric treatment [ ]c) Delirium that prevents performance of a life-sustaining function (eg, feeding or hydrating oneself) [ ]. General contraindications and/or Inappropriate clinical situations for Observational Care in patients with Mental Status Change, when ANY ONE of the following is required: [ ]a) Prediction of prolongation of LOS based on ANY ONE of the following may be considered as a contraindication for observational care 2, 3, 4, 5, 6, 7, 8, 9, 10, 11 [ ]i) Age > 65 yrs. [ ]ii) Patient arriving by ambulance [ ]iii) Patient with high acuity [ ]iv) Patient requiring vital sign monitoring [ ]v) Patient on IV medication [ ]b) Systolic blood pressures greater than or equal to 180mmHg 3, 12 [ ]c) Patient with altered mental status including delirium and other alteration of consciousness, (3) [ ]d) Patient whose discharge disposition will be to a fci home or rehabilitation home should not be managed in Emergency Department Observation Unit. CMS rule requires 3 days hospital stay before such placement.3,13 [ ]e) Patient with failure to thrive due to broad array of etiologies 3,16,17 [ ]f) Inability to ambulate 3,14 Extended stay beyond goal length of stay for the primary condition may be needed until ALL of the following are present(3)(5): [ ]a) Underlying medical etiology of mental status change is absent, or has been established and adequately treated [ ]b) Danger to self or others is absent or manageable at lower level of care. [ ]c) Behavior crisis management, including physical or chemical restraints, is not required or available at lower level of car [ ]d) Substance or alcohol withdrawal is absent or manageable at lower level of care. [ ]e) Behavioral symptoms (eg, agitation, somnolence, inappropriate behavior) are absent, or are manageable at lower level of care. The original [facility] content created by [facility] [employer] has been revised. The portions of the content which have been revised are identified through the use of italic text or in bold, and [facility] has neither reviewed nor approved the modified material. All other unmodified content is copyright [facility] [employer]. Please see references footnoted in the original [facility] edition 2016 Admission Criteria Met: Yes
--- NOTE | 2016-07-10 21:47 | Progress Note ---
Assessment and Plan 25 YO Male with No PMH brought to ED for evaluation. Pt family stated that pt has experienced headache, and not feeling well over the past 7 days. Pt has experienced multiple ED visits and was prescribed oral antibiotics without relief. 3hs Prior to calling EMS pt was found unconscious and unresponsive. Pt experienced a seizure as per sister while waiting for EMS transport. Pt sister also states that pt vomited blood. Pt was recently incarcerated, but sister denies known tick bites, known TB exposure, skin rash, trauma, drug use, HIV risk factors. Acute respiratory failure Acute seizure episode Hematamesis Acute encephalopathy - Consult neurology, ID - discussed with CC and pt transferred to ICU and intubated - cont the Rx for possible mengitis - follow blood cx, ordered LP - cont keppra and as needed ativan - GI Px, SCD for DVT Px - f/u pending lab works The high probability of a clinically significant, sudden or life threatening deterioration of the respiratory system(s) required my full and direct attention , intervention and personal management. The aggregate critical care time was [35 ] minutes. This time is in addition to time spent performing reported procedures but includes the following: [X] Data Review and interpretation [X] Patient assessment and monitoring of vital signs [X] Documentation [X] Medication orders and management Subjective Date of service: 07/10/16 Interval history: Pt seen and examined discussed with family at bedside Patient remained unresponsive, Discussed with Neurology, ID and Dr. Baum Objective - Constitutional Vitals: Vital Signs - 12hr 07/10/16 07/10/16 07/10/16 10:00 14:00 16:00 Temperature Pulse Rate Pulse Rate [ Brachial] Pulse Rate [ Left Dorsalis Pedis] Pulse Rate [ Left Radial] Pulse Rate [ None] Pulse Rate [ Right Dorsalis Pedis] Pulse Rate [ 90 Right Radial] Respiratory 22 Rate Blood Pressure Blood Pressure 180/110 [Right Arm] O2 Sat by Pulse 94 93 98 Oximetry 07/10/16 07/10/16 07/10/16 16:49 17:00 17:30 Temperature 95.0 F L Pulse Rate 140 H Pulse Rate [ Brachial] Pulse Rate [ Left Dorsalis Pedis] Pulse Rate [ Left Radial] Pulse Rate [ None] Pulse Rate [ Right Dorsalis Pedis] Pulse Rate [ Right Radial] Respiratory 11 L Rate Blood Pressure 77/47 Blood Pressure [Right Arm] O2 Sat by Pulse 99 96 Oximetry 07/10/16 07/10/16 07/10/16 18:00 18:06 19:00 Temperature 94.4 F L 97.3 F L Pulse Rate 132 H Pulse Rate [ Brachial] Pulse Rate [ Left Dorsalis Pedis] Pulse Rate [ Left Radial] Pulse Rate [ 125 H None] Pulse Rate [ Right Dorsalis Pedis] Pulse Rate [ Right Radial] Respiratory 10 L 20 Rate Blood Pressure 112/67 Blood Pressure [Right Arm] O2 Sat by Pulse 100 100 Oximetry 07/10/16 07/10/16 20:00 21:00 Temperature Pulse Rate Pulse Rate [ 132 H Brachial] Pulse Rate [ 132 H Left Dorsalis Pedis] Pulse Rate [ 132 H Left Radial] Pulse Rate [ 132 H 139 H None] Pulse Rate [ 132 H Right Dorsalis Pedis] Pulse Rate [ 132 H Right Radial] Respiratory 27 H 28 H Rate Blood Pressure 126/82 137/93 Blood Pressure [Right Arm] O2 Sat by Pulse 100 137 H Oximetry General appearance: Present: other (unresponsive, rolling eyes backward, mouth with frothy saliva) - EENT ENT: dentition normal, other (eye rolling backwards) Ears: bilateral: normal - Neck Neck: supple, normal ROM - Respiratory Respiratory effort: labored, stridor Respiratory: bilateral: rales - Cardiovascular Rhythm: regular Heart Sounds: Present: S1 & S2. Absent: gallop, rub Extremities: pulses intact, No edema, normal color - Gastrointestinal General gastrointestinal: Present: soft, non-tender, non-distended, normal bowel sounds - Integumentary Integumentary: clear, warm, dry - Musculoskeletal Musculoskeletal: 1, strength equal bilaterally - Neurologic Neurologic: other (does not follow commend) - Psychiatric Psychiatric: other (unable to assess) - Labs CBC & Chem 7: 07/10/16 14:36 07/10/16 14:36 Labs: Abnormal lab results 07/10/16 07/10/16 07/10/16 Range/Units 14:36 14:36 14:55 RDW 13.0 L (13.2-15.2) % POC ABG pH 7.453 H (7.35-7.45) POC ABG pCO2 34.2 L (35-45) POC ABG pO2 28 L (80-105) Sodium 131 L (137-145) mmol/L Chloride 93.8 L (98-107) mmol/L Creatinine 0.5 L (0.8-1.5) mg/dL Glucose 149 H (75-100) mg/dL 07/10/16 Range/Units 17:49 RDW (13.2-15.2) % POC ABG pH (7.35-7.45) POC ABG pCO2 (35-45) POC ABG pO2 124 H (80-105) Sodium (137-145) mmol/L Chloride (98-107) mmol/L Creatinine (0.8-1.5) mg/dL Glucose (75-100) mg/dL - Imaging and cardiology Chest x-ray: report reviewed CT scan - abdomen: report reviewed CT Scan - head: report reviewed
[2016-07-10] MEDS ORDERED: PROTONIX IV SCH (23:00)
[2016-07-11] MEDS: DUONEB 0.5 MG-3 MG/3 ML SOLN IH SCH ×3 (00:59→16:36)
[2016-07-11] MEDS: VANCOMYCIN 1,250 MG in NACL 0.9% 250ML 250 ML IV SCH ×3 (04:30→20:39)
[2016-07-11 04:47] LABS: Hematocrit 40.3 % (35.5-45.6); Hemoglobin 13.3 gm/dl (11.8-15.2); Mean Corpuscular HGB Conc 33 % (32-34); Mean Corpuscular Hemoglobin 31 pg (28-32); Mean Corpuscular Volume 93 fl (84-94); Platelet Count 128 K/mm3 (140-440); Red Blood Count 4.32 M/mm3 (3.65-5.03); Red Cell Distribution Width 13.4 % (13.2-15.2); White Blood Count 17.7 K/mm3 (4.5-11.0)
[2016-07-11 05:06] LABS: Alanine Aminotransferase 26 units/L (7-56); Albumin/Globulin Ratio 1.1 %; Alkaline Phosphatase 53 units/L (35-129); Anion Gap 21 mmol/L; BUN/Creatinine Ratio 18.88; Blood Urea Nitrogen 17 mg/dL (9-20); Calcium 8.1 mg/dL (8.4-10.2); Carbon Dioxide 20 mmol/L (22-30); Chloride 103.3 mmol/L (98-107); Glucose 123 mg/dL (75-100); Potassium 4.2 mmol/L (3.6-5.0); Sodium 140 mmol/L (137-145); Total Protein 5.8 g/dL (6.3-8.2)
[2016-07-11] MEDS: ZOVIRAX IV SCH ×3 (05:28→21:27)
[2016-07-11] MEDS: NACL 0.9% IV SCH ×3 (05:28→21:27)
[2016-07-11 05:32] LABS: Basophils % (Manual) 0 % (0.0-1.8); Blastocytes % (Manual) 0 %; Eosinophils % (Manual) 0 % (0.0-4.3)
[2016-07-11 05:33] LABS: ISTAT Base Excess -2; ISTAT HCO3 22.2; ISTAT PCO2 33.3 (35-45); ISTAT PH 7.433 (7.35-7.45); ISTAT PO2 79 (80-105); ISTAT SO2 96; ISTAT TCO2 23
[2016-07-11 05:33] LABS: Platelet Estimate Appears Decreased
[2016-07-11 05:34] LABS: Diff Status Complete
[2016-07-11] MEDS ORDERED: LEVOPHED DRIP 4 MG/NS 250 ML 4 MG/250 ML BAG IV ONE (07:49)
[2016-07-11] MEDS: PITRESSin 20 UNIT in NACL 0.9% 100 ML IV SCH (08:20)
--- NOTE | 2016-07-11 08:20 | Consultation ---
HISTORY OF PRESENT ILLNESS: This is a stat consult obtained by Dr. Parikh. History obtained by myself is at this point somewhat limited because the patient is in the process of being transferred from the floor to the ICU. His condition was deteriorating over this afternoon. Dr. Parikh called me to give stat consult. He had gone at least 2 times to [facility], diagnosed and treated for have an allergic reaction and an urinary tract infection, then upper respiratory tract infection and went back a second time because his condition was not improving. He was continued on antibiotic therapy and then apparently worsened. The family was in the process of transferring him according to history obtained and he then had a generalized seizure. EMS was contacted to bring the patient to [facility]. He was admitted here with a diagnosis of seizures, received IV Keppra. Condition did not substantially improve this morning. I spoke with his nurse who took care of him on 3 tower and the patient was not speaking and not moving well at all. Eyes were barely open. Respirations were rapid and very ineffective. His blood pressure nonetheless was 130/70 and he was not eating, not able to swallow, or arouse himself, an NG tube was placed on the patient. He was receiving IV Keppra for control of seizures, was recommended antibiotics and the condition; however, did not substantially get better. In the interval, Dr. Parikh called me, and my recommendation was to have him transferred to the ICU and this is currently being accomplished. On arrival in the ICU, he is poorly responsive, no active seizure activity is noted. He is rigid throughout. His pO2 is in the range of 82. His pulse rate is 113. Speaking with the sales force administrator, feeling at this point he may have aspirated. Plan is to intubate the patient. Review of his x-rays from yesterday did not show any marked changes. X-rays today is pending. IMPRESSION: This patient has a number of medical factors going on contributing to his coma and probable septic shock syndrome, as well as probably acute respiratory distress syndrome and I do not think the primary picture at this point is a central nervous system, manifestation of meningitis i.e. or encephalitis, but more likely a generalized sepsis. Nonetheless, an MRI scan will be obtained. He will be intubated in the process of getting him adequately ventilated at present time. This note is an interval note and a final note about his course of treatment after intubation and obtaining electrolytes will be dictated later, but also speak with family members to see if there is any other additional history of any note. I was told that he had never had seizures before. There is no history of illicit drug use. No history that would indicate that seizures have been a previous problem. JOB# [id number] DALIA/AARTI
--- NOTE | 2016-07-11 08:26 | Consultation ---
PULMONARY CRITICAL CARE CONSULTATION CONSULTING PHYSICIAN: Dr. Parikh. REASON FOR CONSULTATION: Altered mental status, acute respiratory failure. CHIEF COMPLAINT AND HISTORY OF PRESENT ILLNESS: The patient is a 25-year-old -[place] male with past medical history, family denies any, they also denied history of seizures, who was brought into the hospital, came into the Emergency Room via ambulance due to confusion, I believe yesterday. His sister stated that she last saw him about 3 hours prior to calling EMS, he had asked for some fruit. She went to go get some for him, but finding confused, unable to answer questions. She called emergency medical services. He reportedly had vomited some blood in the ER, it did not appear to be bloody emesis though. He had been to various Emergency rooms during the preceding few days having diagnoses of sinusitis, UTI. He was on Augmentin and Levaquin, as well as Motrin and [place] at the time of the presentation. He was unable to give any history, but he looked I am assuming he must have looked stable enough to be admitted to the regular medical floor. He was essentially diagnosed with delirium and admitted to the regular medical floor. Earlier today, I got a call from the hospitalist because the patient was struggling to breathe. I do not have any report of vomiting or overt aspiration. Although he sounded that way. With regards to the patient's tobacco use/abuse history, he was described as a never smoker. This really is as much of the history of presentation as I have. PAST MEDICAL HISTORY: Denied any. PAST SURGICAL HISTORY: Denied. MEDICATIONS: He was on at the time I stopped by to see him. According to the medication administration record included the following: He had been started on acyclovir 770 mg IV q. 8 hours. He has been started on albuterol p.r.n. nebulized q. 6 hours., p.r.n. Dulcolax, Rocephin 2 grams IV q. 12, hydralazine was given p.r.n. IV, Keppra 500 mg IV q. 12 hours p.r.n., Ativan 2 mg IV q. 4 hours p.r.n. agitation, Zofran 4 mg IV q. 8 hours p.r.n. nausea and vomiting, vancomycin, he received 1.25 mg IV q. 8 hours as the dose on that. ALLERGIES: No known drug allergies. DIET: Thin, well-built gentleman, acute weight loss or gain, history is unknown. FAMILY AND SOCIAL HISTORY: Lives in the community with his family around brothers, sisters. Alcohol, tobacco, or illicit drug use is denied. REVIEW OF SYSTEMS: Unobtainable secondary to the patient's medical and mental condition since he has been here, no gross hematochezia or melena, no gross hematuria, no hematemesis, no hemoptysis, no seizures, have been witnessed. PHYSICAL EXAMINATION: VITAL SIGNS: At initial presentation in the emergency room, he was afebrile, temperature 98.2 Fahrenheit rectally, pulse was 57, respiratory rate was 15, blood pressure was 153/87, and oxygen sats were 98%. Inspired oxygen concentration was not recorded, his blood pressure the highest is really the most recent 180/110. HEAD, EYES, EARS, NOSE, AND THROAT: Pupils were equal, round, sluggishly reactive to light, about 2-3 mm. Extraocular muscle movements could not be assessed. Generally, he was grunting. He seemed to be struggling to breathe without accessory use of muscles of respiration. He probably had some upper airway obstruction in terms of secretions. NECK: Grossly, there were no palpable lymph nodes in the supraclavicular or submandibular lymph node chains. LUNGS: Auscultation of both lung romero significant for right lung rales. No wheezing. HEART: Heart sounds 1 and 2 are heard at the time of my evaluation there were regular rate and rhythm. JOB# [id number] AJM/NTS
--- NOTE | 2016-07-11 08:55 | XRay Report ---
CHEST 1 VIEW INDICATION: Respiratory failure followup. COMPARISON: Yesterday. FINDINGS: Portable, frontal chest radiograph, 2:15 AM, 07/11/2016 reveals stable cardiomediastinal silhouette, appearance of the lungs and osseous structures, providing for the difference in technique. Interval esophagogastric tube advancement, now extending into the stomach and beyond the inferior radiographic margin. CONCLUSION: Interval esophagogastric tube advancement and left greater than right pneumonias/airspace opacities, as described. Thank you for the opportunity to participate in this patient's care.
[2016-07-11] MEDS ORDERED: LOPRESSOR IV ONE (09:18)
[2016-07-11] MEDS ORDERED: LOPRESSOR IV STA (09:32)
[2016-07-11] MEDS: PEPCID IV SCH ×2 (09:59→21:26)
[2016-07-11] MEDS ORDERED: NACL 0.9% 1000 ML 1,000 ML IV ONE ×2 (10:00→11:00)
[2016-07-11] MEDS: ROCEPHIN/NS 2 GM/100 ML 2 GM/100 ML BAG IV SCH ×2 (10:05→21:29)
--- NOTE | 2016-07-11 10:07 | Consultation ---
History of Present Illness - Reason for Consult Consult date: 07/11/16 Possible Meningitis - History of Present Illness Mr. Hillman is a 25-year-old man with no significant medical history who was brought in by family with intractable vomiting and seizure-like activity while en route. The patient is fully unresponsive and is unable to provide any history. History is obtained from the patient's family members at the bedside; his [employer] and the medical record. He reportedly had complained of generalized issues over the previous week, having visited a couple of local EDs for evaluation. He was reportedly diagnosed with a UTI and acute rhinitis or pharyngitis due to seasonal allergies or other phenomena. He was reportedly prescribed Amoxicillin at the first presentation then Levaquin and steroids at a subsequent visit. His symptoms did not alexx and his family recalls several episodes of emesis. He was received here lethargic with deteriorating mental status. Brain/ head imaging showed no focal findings. He was unable to complete a lumbar puncture on admission, but is currently on empiric Vancomycin, Rocephin and Acyclovir. HIV and illicit drug screening are negative. He is now unresponsive with limited brainstem reflexes. ID is consulted for further treatment recommendations. Past History Past Medical History: No medical history, other (reviewed) Past Surgical History: No surgical history, Other (reviewed) Social history: single, lives with family Family history: hypertension Medications and Allergies Allergies Allergy/AdvReac Type Severity Reaction Status Date / Time No Known Allergies Allergy Verified 11/06/15 04:00 Home Medications Medication Instructions Recorded Confirmed Last Taken Type Amoxicillin/K Clav Tab [Augmentin 1 tab PO Q12HR 07/09/16 07/09/16 Unknown History 875 mg] HYDROcodone/APAP 5-325 [Odin 1 each PO Q4HR PRN 07/09/16 07/09/16 Unknown History 5/325] Ibuprofen [Motrin] 800 mg PO Q8HR PRN 07/09/16 07/09/16 Unknown History Levofloxacin [Levaquin TAB] 500 mg PO QDAY 07/09/16 07/09/16 Unknown History Ondansetron [Zofran Odt] 4 mg PO Q8HR 07/09/16 07/09/16 Unknown History Prednisone [predniSONE 10 mg 10 mg PO .TAPER 07/09/16 07/09/16 Unknown History (6-Day Pack, 21 Tabs)] Active Meds: Active Medications Acetaminophen (Tylenol) 650 mg PO Q4H PRN PRN Reason: Pain MILD(1-3)/Fever >100.5/GUTIERREZ Albuterol (Proventil) 2.5 mg IH Q6HRT PRN PRN Reason: Shortness Of Breath Albuterol/Ipratropium (Duoneb 0.5 Mg-3 Mg/3 Ml Soln) 1 ampul IH Q8HRT [facility] Last Admin: 07/11/16 08:44 Dose: Not Given Bisacodyl (Dulcolax) 10 mg MS QDAY PRN PRN Reason: Constipation unrelieved by MOM Famotidine (Pepcid) 20 mg IV BID [facility] Hydralazine HCl (Apresoline) 5 mg IV Q30MIN PRN PRN Reason: Hypertension Hydrophilic Ointment (Vaseline Lip Therapy) 1 applic TP Q2HR PRN PRN Reason: Dry Lips Acyclovir 770 mg/ Sodium (Chloride) 115.4 mls @ 100 mls/hr IV Q8HR DANNY PRN Reason: Protocol Last Admin: 07/11/16 05:28 Dose: 100 mls/hr Vancomycin HCl 1,250 mg/ (Sodium Chloride) 275 mls @ 166.667 mls/hr IV Q8H [facility] Last Admin: 07/11/16 04:30 Dose: 166.667 mls/hr Levetiracetam 500 mg/ Dextrose 105 mls @ 400 mls/hr IV Q12HR [facility] Last Admin: 07/10/16 22:10 Dose: 400 mls/hr Ceftriaxone Sodium (Rocephin/Ns 2 Gm/100 Ml) 2 gm in 100 mls @ 200 mls/hr IV Q12HR [facility] Last Admin: 07/10/16 23:29 Dose: 200 mls/hr Fentanyl Citrate (Fentanyl Drip Premix) 2,000 mcg in 100 mls @ 3.856 mls/hr IV TITR DANNY; 1 MCG/KG/HR PRN Reason: Protocol Propofol (Diprivan 10 Mg/Ml) 1,000 mg in 100 mls @ 2.313 mls/hr IV TITR DANNY; 5 MCG/KG/MIN PRN Reason: Protocol Last Admin: 07/10/16 23:44 Dose: 15 mcg/kg/min, 6.94 mls/hr Vasopressin 20 unit/ Sodium (Chloride) 101 mls @ 9.09 mls/hr IV TITR DANNY; 0.03 UNITS/MIN PRN Reason: Protocol Norepinephrine 8 mg/ Sodium (Chloride) 250 mls @ 3.75 mls/hr IV TITR DANNY; 2 MCG /MIN PRN Reason: Protocol Sodium Chloride (Nacl 0.9% 1000 Ml) 1,000 mls @ 150 mls/hr IV DIRECT DANNY Sodium Chloride (Nacl 0.9% 1000 Ml) 1,000 mls @ 999 mls/hr IV BOLUS ONE PRN Reason: Protocol Stop: 07/11/16 09:56 Sodium Chloride (Nacl 0.9% 1000 Ml) 1,000 mls @ 999 mls/hr IV BOLUS ONE Stop: 07/11/16 10:01 Lorazepam (Ativan) 2 mg IV Q4H PRN PRN Reason: Agitation Last Admin: 07/10/16 14:04 Dose: 2 mg Magnesium Hydroxide (Milk Of Magnesia) 30 ml PO Q4H PRN PRN Reason: Constipation Metoprolol Tartrate (Lopressor) 5 mg IV ONCE STA Stop: 07/11/16 09:33 Multi-Ingred Cream/Lotion/Oil/Oint (Artificial Tears Ophth Oint) 1 applic OU Q4HR PRN PRN Reason: Dry Eye(s) Ondansetron HCl (Zofran) 4 mg IV Q8H PRN PRN Reason: N/V unrelieved by Areli Vancomycin HCl (Vancomycin Pharmacy To Dose) 1 each IV PKCONSULT DANNY PRN Reason: Protocol Review of Systems ROS unobtainable: due to endotracheal tube, due to mental status Physical Examination - Physical Exam Narrative exam: young man, unresponsive, multiple family members present - Constitutional Vitals: Vital Signs Temp Pulse Resp BP Pulse Ox 97.8 F 158 H 25 H 143/91 90 07/11/16 08:00 07/11/16 07:33 07/11/16 06:21 07/11/16 06:21 07/11/16 07:33 Temperature -Last 24 Hours Temperature 97.8 F Temperature 97.3 F Temperature 94.4 F Temperature 95.0 F General appearance: Present: well-nourished - EENT Eyes: Absent: conjunctival injection ENT: clear oral mucosa (limited exam shows no findings) - Neck Neck: Present: supple. Absent: rigidity, masses or JVD, cervical LAD - Respiratory Respiratory: bilateral: CTA, negative: rales, rhonchi - Cardiovascular Rhythm: regular Heart Sounds: Present: S1 & S2. Absent: systolic murmur - Extremities Extremities: No edema Extremity abnormal: other (no joint effusions) - Abdominal General gastrointestinal: Present: soft, non-tender, non-distended Male genitourinary: Present: normal (Huntley catheter present) - Integumentary Integumentary: Present: warm (multiple tattoos). Absent: rash - Neurologic Neurologic: other (pupils unreactive) Results - Labs CBC & Chem 7: 07/11/16 04:24 07/11/16 04:24 Labs: Abnormal lab results 07/10/16 07/10/16 07/10/16 Range/Units 14:36 14:36 14:55 WBC (4.5-11.0) K/mm3 RDW 13.0 L (13.2-15.2) % Plt Count (140-440) K/mm3 Lymphocytes % (Manual) (13.4-35.0) % Monocytes % (Manual) (0.0-7.3) % Lymphocytes # (Manual) (1.2-5.4) K/mm3 Monocytes # (Manual) (0.0-0.8) K/mm3 POC ABG pH 7.453 H (7.35-7.45) POC ABG pCO2 34.2 L (35-45) POC ABG pO2 28 L (80-105) Sodium 131 L (137-145) mmol/L Chloride 93.8 L (98-107) mmol/L Carbon Dioxide (22-30) mmol/L Creatinine 0.5 L (0.8-1.5) mg/dL Glucose 149 H (75-100) mg/dL Lactic Acid (0.7-2.0) mmol/L Calcium (8.4-10.2) mg/dL AST (5-40) units/L Total Protein (6.3-8.2) g/dL Albumin (3.9-5) g/dL 07/10/16 07/11/16 07/11/16 Range/Units 17:49 04:23 04:24 WBC 17.7 H (4.5-11.0) K/mm3 RDW (13.2-15.2) % Plt Count 128 L (140-440) K/mm3 Lymphocytes % (Manual) 4.0 L (13.4-35.0) % Monocytes % (Manual) 8.0 H (0.0-7.3) % Lymphocytes # (Manual) 0.7 L (1.2-5.4) K/mm3 Monocytes # (Manual) 1.4 H (0.0-0.8) K/mm3 POC ABG pH (7.35-7.45) POC ABG pCO2 (35-45) POC ABG pO2 124 H (80-105) Sodium (137-145) mmol/L Chloride (98-107) mmol/L Carbon Dioxide (22-30) mmol/L Creatinine (0.8-1.5) mg/dL Glucose (75-100) mg/dL Lactic Acid 2.60 H* (0.7-2.0) mmol/L Calcium (8.4-10.2) mg/dL AST (5-40) units/L Total Protein (6.3-8.2) g/dL Albumin (3.9-5) g/dL 07/11/16 07/11/16 07/11/16 Range/Units 04:24 04:50 08:28 WBC (4.5-11.0) K/mm3 RDW (13.2-15.2) % Plt Count (140-440) K/mm3 Lymphocytes % (Manual) (13.4-35.0) % Monocytes % (Manual) (0.0-7.3) % Lymphocytes # (Manual) (1.2-5.4) K/mm3 Monocytes # (Manual) (0.0-0.8) K/mm3 POC ABG pH (7.35-7.45) POC ABG pCO2 33.3 L (35-45) POC ABG pO2 79 L (80-105) Sodium (137-145) mmol/L Chloride (98-107) mmol/L Carbon Dioxide 20 L (22-30) mmol/L Creatinine (0.8-1.5) mg/dL Glucose 123 H (75-100) mg/dL Lactic Acid 2.60 H* (0.7-2.0) mmol/L Calcium 8.1 L (8.4-10.2) mg/dL AST 57 H (5-40) units/L Total Protein 5.8 L (6.3-8.2) g/dL Albumin 3.0 L (3.9-5) g/dL Microbiology 07/10/16 16:15 Tracheal Aspirate Sputum Culture - Preliminary 07/10/16 14:38 Peripheral/Venous Blood Culture - Preliminary Culture in Progress 07/10/16 14:43 Peripheral/Venous Blood Culture - Preliminary Culture in Progress 07/09/16 20:35 Urine,Catheterized - Straight Catheter Urine Culture - Preliminary NO GROWTH AFTER 24 HOURS Active Medications Acetaminophen (Tylenol) 650 mg PO Q4H PRN PRN Reason: Pain MILD(1-3)/Fever >100.5/GUTIERREZ Albuterol (Proventil) 2.5 mg IH Q6HRT PRN PRN Reason: Shortness Of Breath Albuterol/Ipratropium (Duoneb 0.5 Mg-3 Mg/3 Ml Soln) 1 ampul IH Q8HRT [facility] Last Admin: 07/11/16 08:44 Dose: Not Given Bisacodyl (Dulcolax) 10 mg MS QDAY PRN PRN Reason: Constipation unrelieved by MOM Famotidine (Pepcid) 20 mg IV BID [facility] Hydralazine HCl (Apresoline) 5 mg IV Q30MIN PRN PRN Reason: Hypertension Hydrophilic Ointment (Vaseline Lip Therapy) 1 applic TP Q2HR PRN PRN Reason: Dry Lips Acyclovir 770 mg/ Sodium (Chloride) 115.4 mls @ 100 mls/hr IV Q8HR [facility] PRN Reason: Protocol Last Admin: 07/11/16 05:28 Dose: 100 mls/hr Vancomycin HCl 1,250 mg/ (Sodium Chloride) 275 mls @ 166.667 mls/hr IV Q8H [facility] Last Admin: 07/11/16 04:30 Dose: 166.667 mls/hr Levetiracetam 500 mg/ Dextrose 105 mls @ 400 mls/hr IV Q12HR [facility] Last Admin: 07/10/16 22:10 Dose: 400 mls/hr Ceftriaxone Sodium (Rocephin/Ns 2 Gm/100 Ml) 2 gm in 100 mls @ 200 mls/hr IV Q12HR [facility] Last Admin: 07/10/16 23:29 Dose: 200 mls/hr Fentanyl Citrate (Fentanyl Drip Premix) 2,000 mcg in 100 mls @ 3.856 mls/hr IV TITR DANNY; 1 MCG/KG/HR PRN Reason: Protocol Propofol (Diprivan 10 Mg/Ml) 1,000 mg in 100 mls @ 2.313 mls/hr IV TITR DANNY; 5 MCG/KG/MIN PRN Reason: Protocol Last Admin: 07/10/16 23:44 Dose: 15 mcg/kg/min, 6.94 mls/hr Vasopressin 20 unit/ Sodium (Chloride) 101 mls @ 9.09 mls/hr IV TITR DANNY; 0.03 UNITS/MIN PRN Reason: Protocol Norepinephrine 8 mg/ Sodium (Chloride) 250 mls @ 3.75 mls/hr IV TITR DANNY; 2 MCG /MIN PRN Reason: Protocol Sodium Chloride (Nacl 0.9% 1000 Ml) 1,000 mls @ 150 mls/hr IV DIRECT DANNY Sodium Chloride (Nacl 0.9% 1000 Ml) 1,000 mls @ 999 mls/hr IV BOLUS ONE PRN Reason: Protocol Stop: 07/11/16 11:00 Sodium Chloride (Nacl 0.9% 1000 Ml) 1,000 mls @ 999 mls/hr IV BOLUS ONE Stop: 07/11/16 10:01 Lorazepam (Ativan) 2 mg IV Q4H PRN PRN Reason: Agitation Last Admin: 07/10/16 14:04 Dose: 2 mg Magnesium Hydroxide (Milk Of Magnesia) 30 ml PO Q4H PRN PRN Reason: Constipation Metoprolol Tartrate (Lopressor) 5 mg IV ONCE STA Stop: 07/11/16 09:33 Multi-Ingred Cream/Lotion/Oil/Oint (Artificial Tears Ophth Oint) 1 applic OU Q4HR PRN PRN Reason: Dry Eye(s) Ondansetron HCl (Zofran) 4 mg IV Q8H PRN PRN Reason: N/V unrelieved by Areli Vancomycin HCl (Vancomycin Pharmacy To Dose) 1 each IV PKCONSULT DANNY PRN Reason: Protocol - Imaging and Cardiology Chest x-ray: report reviewed (no acute findings) CT scan - abdomen: report reviewed (appendix not confidently visualized, but no acute findings) CT scan - chest: report reviewed (no acute abnormalities) Assessment and Plan - Patient Problems (1) Meningitis Current Visit: Yes Status: Acute Plan to address problem: 1. Presumptive diagnosis. Unable to obtain LP for chemistries, micro or opening pressure. 2. On empiric bacterial and viral coverage at appropriate doses. 3. Droplet precautions for 24 hours. 4. Diagnostic and treatment approach discussed with patient's next of kin. (2) Encephalopathy acute Current Visit: Yes Status: Acute Plan to address problem: 1. Apparent pharyngitis or sinus complaints prior to this hospitalization. Acute meningitis vs. Lemierre's vs. fungal infection, etc. considered. 2. High dose Flagyl (empiric Fusobacterium coverage) pending results of blood cultures. 3. Check cryptococcal antigen. 4. HIV screen is negative.
--- NOTE | 2016-07-11 10:13 | Progress Note ---
Assessment and Plan - Patient Problems (1) Acute respiratory failure with hypoxia Current Visit: Yes Status: Acute Plan to address problem: No patient ventilator dysynchrony AC-VC 25/500/5/35% ABG 7.43/27/162/17.9 VAP and critical care bundles addressed. VTE and stress ulcer prophylaxis Aspiration precautions (2) Encephalopathy acute Current Visit: Yes Status: Acute Plan to address problem: Await MRI. Discussed with ID re my concerns of possible meningitis, brain abscess. (3) Cerebral herniation Current Visit: Yes Status: Acute Plan to address problem: Clinical signs at the time of my examination is consistent with probable herniation. 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 Discharged home without clinical improvement. Apparently vomited, with ongoing headaches and lethary/alteration in his mental status/seizures- EMS activated. His was brought to the ED and required oral intubation with mechanical ventilatory support Seen and examined. Vitals, reviewed, medication, chart notes. This morning became more tachycardic and hypertensive with episodes of desaturation. Unresponsive Aunt, sister at the bedside. Objective - Exam Narrative Exam: General appearance: Present: unresponsive, intubated No gag or cough reflex - EENT ENT: dentition normal, other (fixed dilated pupil) - Neck Neck: supple, normal ROM - Respiratory Respiratory effort: labored, stridor Respiratory: bilateral: rales - Cardiovascular Rhythm: tachycardic Heart Sounds: Present: S1 & S2. Absent: gallop, rub Extremities: pulses intact, No edema, normal color - Gastrointestinal General gastrointestinal: Present: soft, non-tender, non-distended, normal bowel sounds - Integumentary Integumentary: cold, dry - Neurologic Neurologic: other (does not follow commend) - Psychiatric Psychiatric: other (unable to assess) Vital Signs - 12hr 07/10/16 07/10/16 07/10/16 22:20 22:30 22:40 Temperature Pulse Rate 144 H 146 H 146 H Pulse Rate [ Anterior Bilateral Throughout] Pulse Rate [ Brachial] Pulse Rate [ Left Dorsalis Pedis] Pulse Rate [ Left Radial] Pulse Rate [ Right Dorsalis Pedis] Pulse Rate [ Right Radial] Respiratory 18 15 22 Rate Respiratory Rate [Anterior Bilateral Throughout] Blood Pressure 138/97 138/97 140/92 O2 Sat by Pulse 99 99 100 Oximetry 07/10/16 07/10/16 07/10/16 22:50 23:00 23:10 Temperature Pulse Rate 143 H 140 H 138 H Pulse Rate [ Anterior Bilateral Throughout] Pulse Rate [ Brachial] Pulse Rate [ Left Dorsalis Pedis] Pulse Rate [ Left Radial] Pulse Rate [ Right Dorsalis Pedis] Pulse Rate [ Right Radial] Respiratory 16 16 30 H Rate Respiratory Rate [Anterior Bilateral Throughout] Blood Pressure 143/84 143/84 134/93 O2 Sat by Pulse 100 100 100 Oximetry 07/10/16 07/10/16 07/10/16 23:20 23:30 23:40 Temperature Pulse Rate 134 H 132 H 133 H Pulse Rate [ Anterior Bilateral Throughout] Pulse Rate [ Brachial] Pulse Rate [ Left Dorsalis Pedis] Pulse Rate [ Left Radial] Pulse Rate [ Right Dorsalis Pedis] Pulse Rate [ Right Radial] Respiratory 31 H 30 H 27 H Rate Respiratory Rate [Anterior Bilateral Throughout] Blood Pressure 129/94 129/94 140/92 O2 Sat by Pulse 99 98 98 Oximetry 07/10/16 07/11/16 07/11/16 23:51 00:00 00:11 Temperature Pulse Rate 133 H 131 H 133 H Pulse Rate [ Anterior Bilateral Throughout] Pulse Rate [ 135 H Brachial] Pulse Rate [ 135 H Left Dorsalis Pedis] Pulse Rate [ 135 H Left Radial] Pulse Rate [ 135 H Right Dorsalis Pedis] Pulse Rate [ 135 H Right Radial] Respiratory 28 H 27 H 25 H Rate Respiratory Rate [Anterior Bilateral Throughout] Blood Pressure 126/88 126/87 126/87 O2 Sat by Pulse 98 98 99 Oximetry 05/07/11/16 07/11/16 00:21 00:30 00:41 Temperature Pulse Rate 130 H 132 H 130 H Pulse Rate [ Anterior Bilateral Throughout] Pulse Rate [ Brachial] Pulse Rate [ Left Dorsalis Pedis] Pulse Rate [ Left Radial] Pulse Rate [ Right Dorsalis Pedis] Pulse Rate [ Right Radial] Respiratory 24 24 23 Rate Respiratory Rate [Anterior Bilateral Throughout] Blood Pressure 124/90 124/89 124/89 O2 Sat by Pulse 99 99 99 Oximetry 07/11/16 07/11/16 07/11/16 00:51 00:55 00:59 Temperature Pulse Rate 127 H 125 H Pulse Rate [ 121 H Anterior Bilateral Throughout] Pulse Rate [ Brachial] Pulse Rate [ Left Dorsalis Pedis] Pulse Rate [ Left Radial] Pulse Rate [ Right Dorsalis Pedis] Pulse Rate [ Right Radial] Respiratory 24 Rate Respiratory 24 Rate [Anterior Bilateral Throughout] Blood Pressure 121/86 121/86 O2 Sat by Pulse 98 98 Oximetry 07/11/16 07/11/16 07/11/16 01:01 01:09 01:11 Temperature Pulse Rate 125 H 127 H Pulse Rate [ 125 H Anterior Bilateral Throughout] Pulse Rate [ Brachial] Pulse Rate [ Left Dorsalis Pedis] Pulse Rate [ Left Radial] Pulse Rate [ Right Dorsalis Pedis] Pulse Rate [ Right Radial] Respiratory 33 H 22 Rate Respiratory 24 Rate [Anterior Bilateral Throughout] Blood Pressure 130/92 130/92 O2 Sat by Pulse 97 94 Oximetry 07/11/16 07/11/16 07/11/16 01:20 01:30 01:41 Temperature Pulse Rate 131 H 130 H 137 H Pulse Rate [ Anterior Bilateral Throughout] Pulse Rate [ Brachial] Pulse Rate [ Left Dorsalis Pedis] Pulse Rate [ Left Radial] Pulse Rate [ Right Dorsalis Pedis] Pulse Rate [ Right Radial] Respiratory 21 32 H 28 H Rate Respiratory Rate [Anterior Bilateral Throughout] Blood Pressure 132/94 131/94 132/94 O2 Sat by Pulse 94 94 93 Oximetry 07/11/16 07/11/16 07/11/16 01:51 02:00 02:11 Temperature Pulse Rate 130 H 130 H 128 H Pulse Rate [ Anterior Bilateral Throughout] Pulse Rate [ Brachial] Pulse Rate [ Left Dorsalis Pedis] Pulse Rate [ Left Radial] Pulse Rate [ Right Dorsalis Pedis] Pulse Rate [ Right Radial] Respiratory 32 H 33 H 26 H Rate Respiratory Rate [Anterior Bilateral Throughout] Blood Pressure 145/107 136/98 145/107 O2 Sat by Pulse 97 96 97 Oximetry 07/11/16 07/11/16 07/11/16 02:21 02:30 02:41 Temperature Pulse Rate 127 H 128 H 129 H Pulse Rate [ Anterior Bilateral Throughout] Pulse Rate [ Brachial] Pulse Rate [ Left Dorsalis Pedis] Pulse Rate [ Left Radial] Pulse Rate [ Right Dorsalis Pedis] Pulse Rate [ Right Radial] Respiratory 31 H 32 H 32 H Rate Respiratory Rate [Anterior Bilateral Throughout] Blood Pressure 144/109 136/105 136/105 O2 Sat by Pulse 97 97 98 Oximetry 07/11/16 07/11/16 07/11/16 02:51 03:00 03:11 Temperature Pulse Rate 129 H 128 H 129 H Pulse Rate [ Anterior Bilateral Throughout] Pulse Rate [ Brachial] Pulse Rate [ Left Dorsalis Pedis] Pulse Rate [ Left Radial] Pulse Rate [ Right Dorsalis Pedis] Pulse Rate [ Right Radial] Respiratory 24 29 H 31 H Rate Respiratory Rate [Anterior Bilateral Throughout] Blood Pressure 134/98 136/97 136/97 O2 Sat by Pulse 98 98 98 Oximetry 07/11/16 07/11/16 07/11/16 03:21 03:30 03:40 Temperature Pulse Rate 129 H 127 H 128 H Pulse Rate [ Anterior Bilateral Throughout] Pulse Rate [ Brachial] Pulse Rate [ Left Dorsalis Pedis] Pulse Rate [ Left Radial] Pulse Rate [ Right Dorsalis Pedis] Pulse Rate [ Right Radial] Respiratory 29 H 27 H 28 H Rate Respiratory Rate [Anterior Bilateral Throughout] Blood Pressure 133/101 136/97 136/97 O2 Sat by Pulse 98 98 98 Oximetry 07/11/16 07/11/16 07/11/16 03:51 04:00 04:01 Temperature Pulse Rate 125 H 122 H Pulse Rate [ Anterior Bilateral Throughout] Pulse Rate [ Brachial] Pulse Rate [ 125 H Left Dorsalis Pedis] Pulse Rate [ 123 H Left Radial] Pulse Rate [ 123 H Right Dorsalis Pedis] Pulse Rate [ 123 H Right Radial] Respiratory 32 H 25 H 26 H Rate Respiratory Rate [Anterior Bilateral Throughout] Blood Pressure 137/93 129/103 O2 Sat by Pulse 98 98 97 Oximetry 07/11/16 07/11/16 07/11/16 04:11 04:21 04:30 Temperature Pulse Rate 124 H 124 H 120 H Pulse Rate [ Anterior Bilateral Throughout] Pulse Rate [ Brachial] Pulse Rate [ Left Dorsalis Pedis] Pulse Rate [ Left Radial] Pulse Rate [ Right Dorsalis Pedis] Pulse Rate [ Right Radial] Respiratory 25 H 31 H 27 H Rate Respiratory Rate [Anterior Bilateral Throughout] Blood Pressure 129/103 136/103 134/93 O2 Sat by Pulse 97 97 97 Oximetry 07/11/16 07/11/16 07/11/16 04:41 04:50 04:51 Temperature Pulse Rate 125 H 121 H 123 H Pulse Rate [ Anterior Bilateral Throughout] Pulse Rate [ Brachial] Pulse Rate [ Left Dorsalis Pedis] Pulse Rate [ Left Radial] Pulse Rate [ Right Dorsalis Pedis] Pulse Rate [ Right Radial] Respiratory 28 H 24 Rate Respiratory Rate [Anterior Bilateral Throughout] Blood Pressure 134/93 134/93 137/96 O2 Sat by Pulse 98 97 97 Oximetry 07/11/16 07/11/16 07/11/16 05:00 05:11 05:21 Temperature Pulse Rate 121 H 120 H 121 H Pulse Rate [ Anterior Bilateral Throughout] Pulse Rate [ Brachial] Pulse Rate [ Left Dorsalis Pedis] Pulse Rate [ Left Radial] Pulse Rate [ Right Dorsalis Pedis] Pulse Rate [ Right Radial] Respiratory 27 H 24 21 Rate Respiratory Rate [Anterior Bilateral Throughout] Blood Pressure 139/86 139/86 135/79 O2 Sat by Pulse 98 98 98 Oximetry 07/11/16 07/11/16 07/11/16 05:30 05:41 05:51 Temperature Pulse Rate 118 H 123 H 123 H Pulse Rate [ Anterior Bilateral Throughout] Pulse Rate [ Brachial] Pulse Rate [ Left Dorsalis Pedis] Pulse Rate [ Left Radial] Pulse Rate [ Right Dorsalis Pedis] Pulse Rate [ Right Radial] Respiratory 25 H 21 23 Rate Respiratory Rate [Anterior Bilateral Throughout] Blood Pressure 142/88 142/88 140/89 O2 Sat by Pulse 97 98 98 Oximetry 07/11/16 07/11/16 07/11/16 06:00 06:11 06:21 Temperature Pulse Rate 123 H 123 H 123 H Pulse Rate [ Anterior Bilateral Throughout] Pulse Rate [ Brachial] Pulse Rate [ Left Dorsalis Pedis] Pulse Rate [ Left Radial] Pulse Rate [ Right Dorsalis Pedis] Pulse Rate [ Right Radial] Respiratory 26 H 22 25 H Rate Respiratory Rate [Anterior Bilateral Throughout] Blood Pressure 139/92 139/92 143/91 O2 Sat by Pulse 97 98 98 Oximetry 07/11/16 07/11/16 07:33 08:00 Temperature 97.8 F Pulse Rate 158 H Pulse Rate [ Anterior Bilateral Throughout] Pulse Rate [ Brachial] Pulse Rate [ Left Dorsalis Pedis] Pulse Rate [ Left Radial] Pulse Rate [ Right Dorsalis Pedis] Pulse Rate [ Right Radial] Respiratory Rate Respiratory Rate [Anterior Bilateral Throughout] Blood Pressure O2 Sat by Pulse 90 Oximetry CBC and BMP: 07/11/16 04:24 07/11/16 04:24 ABG, PT/INR, D-dimer: ABG POC ABG pH 7.433 (7.35-7.45) 07/11/16 04:50 POC ABG pCO2 33.3 (35-45) L 07/11/16 04:50 POC ABG pO2 79 (80-105) L 07/11/16 04:50 POC ABG HCO3 22.2 07/11/16 04:50 POC ABG Total CO2 23 07/11/16 04:50 POC ABG O2 Sat 96 07/11/16 04:50 PT/INR, D-dimer PT 14.2 Sec. (12.2-14.9) 07/09/16 20:40 INR 1.11 (0.87-1.13) 07/09/16 20:40 Abnormal lab findings: Abnormal Labs 07/10/16 07/10/16 07/10/16 14:36 14:36 14:55 WBC RDW 13.0 L Plt Count Lymphocytes % (Manual) Monocytes % (Manual) Lymphocytes # (Manual) Monocytes # (Manual) POC ABG pH 7.453 H POC ABG pCO2 34.2 L POC ABG pO2 28 L Sodium 131 L Chloride 93.8 L Carbon Dioxide Creatinine 0.5 L Glucose 149 H Lactic Acid Calcium AST Total Protein Albumin 07/10/16 07/11/16 07/11/16 17:49 04:23 04:24 WBC 17.7 H RDW Plt Count 128 L Lymphocytes % (Manual) 4.0 L Monocytes % (Manual) 8.0 H Lymphocytes # (Manual) 0.7 L Monocytes # (Manual) 1.4 H POC ABG pH POC ABG pCO2 POC ABG pO2 124 H Sodium Chloride Carbon Dioxide Creatinine Glucose Lactic Acid 2.60 H* Calcium AST Total Protein Albumin 0507/11/16 07/11/16 04:24 04:50 08:28 WBC RDW Plt Count Lymphocytes % (Manual) Monocytes % (Manual) Lymphocytes # (Manual) Monocytes # (Manual) POC ABG pH POC ABG pCO2 33.3 L POC ABG pO2 79 L Sodium Chloride Carbon Dioxide 20 L Creatinine Glucose 123 H Lactic Acid 2.60 H* Calcium 8.1 L AST 57 H Total Protein 5.8 L Albumin 3.0 L Chest x-ray: report reviewed Allied health notes reviewed: RT ED Critical Care Note - Critical Care Note Total Time (mins): 45 Critical care time in (mins) excluding proc time.: 45 Critical care attestation.: If time is entered above; I have spent that time in minutes in the direct care of this critically ill patient, excluding procedure time.
[2016-07-11] MEDS: KEPPRA 500 MG in D5W 100 ML IV SCH ×2 (11:00→21:27)
--- NOTE | 2016-07-11 13:28 | Progress Note ---
Assessment and Plan 25 YO Male with No PMH brought to ED for evaluation. Pt family stated that pt has experienced headache, and not feeling well over the past 7 days. Pt has experienced multiple ED visits and was prescribed oral antibiotics without relief. 3hs Prior to calling EMS pt was found unconscious and unresponsive. Pt experienced a seizure as per sister while waiting for EMS transport. Pt sister also states that pt vomited blood. Pt was recently incarcerated, but sister denies known tick bites, known TB exposure, skin rash, trauma, drug use, HIV risk factors. He was intubated on 07/10/16 Acute respiratory failure Acute seizure episode Hematamesis Acute encephalopathy Acute CHF with Ef 15 to 20% Acute anoxic brain injury Aspiration PNA Possible meningitis - cont the Rx for possible mengitis - follow blood cx, ordered LP - cont keppra and as needed ativan - GI Px, SCD for DVT Px - f/u pending lab works - cont pressor support - wait for pending LP The high probability of a clinically significant, sudden or life threatening deterioration of the respiratory system(s) required my full and direct attention , intervention and personal management. The aggregate critical care time was [35 ] minutes. This time is in addition to time spent performing reported procedures but includes the following: [X] Data Review and interpretation [X] Patient assessment and monitoring of vital signs [X] Documentation [X] Medication orders and management Subjective Date of service: 07/11/16 Interval history: Pt seen and examined discussed with family at bedside Patient remained intubated and unresponsive, BP dropped this am, placed on pressor 2D echo showed 15 to 20% MRI revealed global ischemia Discussed in details with family at bed side, they wish to continue full code status for atleast next 24h Objective - Exam Narrative Exam: General appearance: Present: other (unresponsive, intubated) - EENT ENT: dentition normal, other (fixed dilated pupil) Ears: bilateral: normal - Neck Neck: supple, normal ROM - Respiratory Respiratory effort: labored, stridor Respiratory: bilateral: rales - Cardiovascular Rhythm: tachycardic Heart Sounds: Present: S1 & S2. Absent: gallop, rub Extremities: pulses intact, No edema, normal color - Gastrointestinal General gastrointestinal: Present: soft, non-tender, non-distended, normal bowel sounds - Integumentary Integumentary: cold, dry - Neurologic Neurologic: other (does not follow commend) - Psychiatric Psychiatric: other (unable to assess) - Constitutional Vitals: Vital Signs - 12hr 07/11/16 07/11/16 07/11/16 01:30 01:41 01:51 Temperature Pulse Rate 130 H 137 H 130 H Pulse Rate [ From Monitor] Pulse Rate [ Left Dorsalis Pedis] Pulse Rate [ Left Radial] Pulse Rate [ Right Dorsalis Pedis] Pulse Rate [ Right Radial] Respiratory 32 H 28 H 32 H Rate Blood Pressure 131/94 132/94 145/107 O2 Sat by Pulse 94 93 97 Oximetry 07/11/16 07/11/16 07/11/16 02:00 02:11 02:21 Temperature Pulse Rate 130 H 128 H 127 H Pulse Rate [ From Monitor] Pulse Rate [ Left Dorsalis Pedis] Pulse Rate [ Left Radial] Pulse Rate [ Right Dorsalis Pedis] Pulse Rate [ Right Radial] Respiratory 33 H 26 H 31 H Rate Blood Pressure 136/98 145/107 144/109 O2 Sat by Pulse 96 97 97 Oximetry 07/11/16 07/11/16 07/11/16 02:30 02:41 02:51 Temperature Pulse Rate 128 H 129 H 129 H Pulse Rate [ From Monitor] Pulse Rate [ Left Dorsalis Pedis] Pulse Rate [ Left Radial] Pulse Rate [ Right Dorsalis Pedis] Pulse Rate [ Right Radial] Respiratory 32 H 32 H 24 Rate Blood Pressure 136/105 136/105 134/98 O2 Sat by Pulse 97 98 98 Oximetry 07/11/16 07/11/16 07/11/16 03:00 03:11 03:21 Temperature Pulse Rate 128 H 129 H 129 H Pulse Rate [ From Monitor] Pulse Rate [ Left Dorsalis Pedis] Pulse Rate [ Left Radial] Pulse Rate [ Right Dorsalis Pedis] Pulse Rate [ Right Radial] Respiratory 29 H 31 H 29 H Rate Blood Pressure 136/97 136/97 133/101 O2 Sat by Pulse 98 98 98 Oximetry 07/11/16 07/11/16 07/11/16 03:30 03:40 03:51 Temperature Pulse Rate 127 H 128 H 125 H Pulse Rate [ From Monitor] Pulse Rate [ Left Dorsalis Pedis] Pulse Rate [ Left Radial] Pulse Rate [ Right Dorsalis Pedis] Pulse Rate [ Right Radial] Respiratory 27 H 28 H 32 H Rate Blood Pressure 136/97 136/97 137/93 O2 Sat by Pulse 98 98 98 Oximetry 07/11/16 07/11/16 07/11/16 04:00 04:01 04:11 Temperature Pulse Rate 122 H 124 H Pulse Rate [ From Monitor] Pulse Rate [ 125 H Left Dorsalis Pedis] Pulse Rate [ 123 H Left Radial] Pulse Rate [ 123 H Right Dorsalis Pedis] Pulse Rate [ 123 H Right Radial] Respiratory 25 H 26 H 25 H Rate Blood Pressure 129/103 129/103 O2 Sat by Pulse 98 97 97 Oximetry 07/11/16 07/11/16 07/11/16 04:21 04:30 04:41 Temperature Pulse Rate 124 H 120 H 125 H Pulse Rate [ From Monitor] Pulse Rate [ Left Dorsalis Pedis] Pulse Rate [ Left Radial] Pulse Rate [ Right Dorsalis Pedis] Pulse Rate [ Right Radial] Respiratory 31 H 27 H 28 H Rate Blood Pressure 136/103 134/93 134/93 O2 Sat by Pulse 97 97 98 Oximetry 07/11/16 07/11/16 07/11/16 04:50 04:51 05:00 Temperature Pulse Rate 121 H 123 H 121 H Pulse Rate [ From Monitor] Pulse Rate [ Left Dorsalis Pedis] Pulse Rate [ Left Radial] Pulse Rate [ Right Dorsalis Pedis] Pulse Rate [ Right Radial] Respiratory 24 27 H Rate Blood Pressure 134/93 137/96 139/86 O2 Sat by Pulse 97 97 98 Oximetry 07/11/16 07/11/16 07/11/16 05:11 05:21 05:30 Temperature Pulse Rate 120 H 121 H 118 H Pulse Rate [ From Monitor] Pulse Rate [ Left Dorsalis Pedis] Pulse Rate [ Left Radial] Pulse Rate [ Right Dorsalis Pedis] Pulse Rate [ Right Radial] Respiratory 24 21 25 H Rate Blood Pressure 139/86 135/79 142/88 O2 Sat by Pulse 98 98 97 Oximetry 07/11/16 07/11/16 07/11/16 05:41 05:51 06:00 Temperature Pulse Rate 123 H 123 H 123 H Pulse Rate [ From Monitor] Pulse Rate [ Left Dorsalis Pedis] Pulse Rate [ Left Radial] Pulse Rate [ Right Dorsalis Pedis] Pulse Rate [ Right Radial] Respiratory 21 23 26 H Rate Blood Pressure 142/88 140/89 139/92 O2 Sat by Pulse 98 98 97 Oximetry 07/11/16 07/11/16 07/11/16 06:11 06:21 06:31 Temperature Pulse Rate 123 H 123 H 123 H Pulse Rate [ From Monitor] Pulse Rate [ Left Dorsalis Pedis] Pulse Rate [ Left Radial] Pulse Rate [ Right Dorsalis Pedis] Pulse Rate [ Right Radial] Respiratory 22 25 H 27 H Rate Blood Pressure 139/92 143/91 139/83 O2 Sat by Pulse 98 98 98 Oximetry 07/11/16 07/11/16 07/11/16 06:41 06:51 07:01 Temperature Pulse Rate 123 H 124 H 123 H Pulse Rate [ From Monitor] Pulse Rate [ Left Dorsalis Pedis] Pulse Rate [ Left Radial] Pulse Rate [ Right Dorsalis Pedis] Pulse Rate [ Right Radial] Respiratory 24 24 28 H Rate Blood Pressure 139/83 143/96 142/91 O2 Sat by Pulse 98 98 98 Oximetry 07/11/16 07/11/16 07/11/16 07:11 07:21 07:31 Temperature Pulse Rate 111 H 149 H 154 H Pulse Rate [ From Monitor] Pulse Rate [ Left Dorsalis Pedis] Pulse Rate [ Left Radial] Pulse Rate [ Right Dorsalis Pedis] Pulse Rate [ Right Radial] Respiratory 35 H 26 H 20 Rate Blood Pressure 142/91 153/104 153/104 O2 Sat by Pulse 89 88 92 Oximetry 07/11/16 07/11/16 07/11/16 07:33 07:41 07:51 Temperature Pulse Rate 158 H 158 H 166 H Pulse Rate [ From Monitor] Pulse Rate [ Left Dorsalis Pedis] Pulse Rate [ Left Radial] Pulse Rate [ Right Dorsalis Pedis] Pulse Rate [ Right Radial] Respiratory 26 H 13 Rate Blood Pressure 73/39 153/117 O2 Sat by Pulse 90 94 97 Oximetry 07/11/16 07/11/16 07/11/16 08:00 08:11 08:20 Temperature 97.8 F Pulse Rate 163 H 157 H 157 H Pulse Rate [ From Monitor] Pulse Rate [ Left Dorsalis Pedis] Pulse Rate [ Left Radial] Pulse Rate [ Right Dorsalis Pedis] Pulse Rate [ Right Radial] Respiratory 24 14 20 Rate Blood Pressure 128/91 101/56 128/81 O2 Sat by Pulse 98 98 98 Oximetry 07/11/16 07/11/16 07/11/16 08:31 08:40 08:51 Temperature Pulse Rate 155 H 153 H 155 H Pulse Rate [ From Monitor] Pulse Rate [ Left Dorsalis Pedis] Pulse Rate [ Left Radial] Pulse Rate [ Right Dorsalis Pedis] Pulse Rate [ Right Radial] Respiratory 21 16 20 Rate Blood Pressure 147/80 125/86 142/116 O2 Sat by Pulse 99 99 98 Oximetry 07/11/16 07/11/16 07/11/16 09:00 09:01 09:11 Temperature Pulse Rate 151 H 150 H Pulse Rate [ 150 H From Monitor] Pulse Rate [ Left Dorsalis Pedis] Pulse Rate [ Left Radial] Pulse Rate [ Right Dorsalis Pedis] Pulse Rate [ Right Radial] Respiratory 17 17 Rate Blood Pressure 114/85 130/94 O2 Sat by Pulse 98 98 Oximetry 07/11/16 07/11/16 07/11/16 09:20 09:30 09:40 Temperature Pulse Rate 101 H 105 H 117 H Pulse Rate [ From Monitor] Pulse Rate [ Left Dorsalis Pedis] Pulse Rate [ Left Radial] Pulse Rate [ Right Dorsalis Pedis] Pulse Rate [ Right Radial] Respiratory 20 20 20 Rate Blood Pressure 98/57 106/59 129/65 O2 Sat by Pulse 96 96 93 Oximetry 07/11/16 07/11/16 07/11/16 09:51 10:01 10:11 Temperature Pulse Rate 118 H 124 H 124 H Pulse Rate [ From Monitor] Pulse Rate [ Left Dorsalis Pedis] Pulse Rate [ Left Radial] Pulse Rate [ Right Dorsalis Pedis] Pulse Rate [ Right Radial] Respiratory 10 L 10 L 9 L Rate Blood Pressure 122/70 126/77 119/71 O2 Sat by Pulse 91 92 92 Oximetry 07/11/16 07/11/16 07/11/16 10:21 10:30 10:41 Temperature Pulse Rate 126 H 129 H 126 H Pulse Rate [ From Monitor] Pulse Rate [ Left Dorsalis Pedis] Pulse Rate [ Left Radial] Pulse Rate [ Right Dorsalis Pedis] Pulse Rate [ Right Radial] Respiratory 12 13 18 Rate Blood Pressure 125/78 128/74 115/79 O2 Sat by Pulse 93 92 93 Oximetry 07/11/16 07/11/16 07/11/16 10:50 11:01 11:11 Temperature Pulse Rate 128 H 127 H 131 H Pulse Rate [ From Monitor] Pulse Rate [ Left Dorsalis Pedis] Pulse Rate [ Left Radial] Pulse Rate [ Right Dorsalis Pedis] Pulse Rate [ Right Radial] Respiratory 16 10 L 13 Rate Blood Pressure 119/67 118/67 119/84 O2 Sat by Pulse 93 94 93 Oximetry 07/11/16 11:34 Temperature Pulse Rate 128 H Pulse Rate [ From Monitor] Pulse Rate [ Left Dorsalis Pedis] Pulse Rate [ Left Radial] Pulse Rate [ Right Dorsalis Pedis] Pulse Rate [ Right Radial] Respiratory Rate Blood Pressure 122/58 O2 Sat by Pulse 95 Oximetry - Labs CBC & Chem 7: 07/11/16 04:24 07/11/16 04:24 Labs: Abnormal lab results 07/10/16 07/10/16 07/10/16 Range/Units 14:36 14:36 14:55 WBC (4.5-11.0) K/mm3 RDW 13.0 L (13.2-15.2) % Plt Count (140-440) K/mm3 Lymphocytes % (Manual) (13.4-35.0) % Monocytes % (Manual) (0.0-7.3) % Lymphocytes # (Manual) (1.2-5.4) K/mm3 Monocytes # (Manual) (0.0-0.8) K/mm3 POC ABG pH 7.453 H (7.35-7.45) POC ABG pCO2 34.2 L (35-45) POC ABG pO2 28 L (80-105) Sodium 131 L (137-145) mmol/L Chloride 93.8 L (98-107) mmol/L Carbon Dioxide (22-30) mmol/L Creatinine 0.5 L (0.8-1.5) mg/dL Glucose 149 H (75-100) mg/dL Lactic Acid (0.7-2.0) mmol/L Calcium (8.4-10.2) mg/dL AST (5-40) units/L Total Protein (6.3-8.2) g/dL Albumin (3.9-5) g/dL 07/10/16 07/11/16 07/11/16 Range/Units 17:49 04:23 04:24 WBC 17.7 H (4.5-11.0) K/mm3 RDW (13.2-15.2) % Plt Count 128 L (140-440) K/mm3 Lymphocytes % (Manual) 4.0 L (13.4-35.0) % Monocytes % (Manual) 8.0 H (0.0-7.3) % Lymphocytes # (Manual) 0.7 L (1.2-5.4) K/mm3 Monocytes # (Manual) 1.4 H (0.0-0.8) K/mm3 POC ABG pH (7.35-7.45) POC ABG pCO2 (35-45) POC ABG pO2 124 H (80-105) Sodium (137-145) mmol/L Chloride (98-107) mmol/L Carbon Dioxide (22-30) mmol/L Creatinine (0.8-1.5) mg/dL Glucose (75-100) mg/dL Lactic Acid 2.60 H* (0.7-2.0) mmol/L Calcium (8.4-10.2) mg/dL AST (5-40) units/L Total Protein (6.3-8.2) g/dL Albumin (3.9-5) g/dL 07/11/16 07/11/16 07/11/16 Range/Units 04:24 04:50 08:28 WBC (4.5-11.0) K/mm3 RDW (13.2-15.2) % Plt Count (140-440) K/mm3 Lymphocytes % (Manual) (13.4-35.0) % Monocytes % (Manual) (0.0-7.3) % Lymphocytes # (Manual) (1.2-5.4) K/mm3 Monocytes # (Manual) (0.0-0.8) K/mm3 POC ABG pH (7.35-7.45) POC ABG pCO2 33.3 L (35-45) POC ABG pO2 79 L (80-105) Sodium (137-145) mmol/L Chloride (98-107) mmol/L Carbon Dioxide 20 L (22-30) mmol/L Creatinine (0.8-1.5) mg/dL Glucose 123 H (75-100) mg/dL Lactic Acid 2.60 H* (0.7-2.0) mmol/L Calcium 8.1 L (8.4-10.2) mg/dL AST 57 H (5-40) units/L Total Protein 5.8 L (6.3-8.2) g/dL Albumin 3.0 L (3.9-5) g/dL
--- NOTE | 2016-07-11 14:11 | Consultation ---
ADDENDUM LUNGS: Auscultation of both lung romero revealed right lung rales, no wheezing. HEART: Heart sounds 1 and 2 are heard. They were regular in rate and rhythm at time of my evaluation. ABDOMEN: Soft, flat. Bowel sounds are positive, nontender. EXTREMITIES: Without overt digital clubbing, cyanosis, or pedal edema. NEUROLOGIC: Neurologically, he was weak, lethargic, but had spontaneous movements to all extremities. LABORATORY DATA: From my review are as follows: White cell count on admission 5400, hemoglobin 12.7, hematocrit 36.6, and platelets 143. No manual differential. INR was 1.11. Serum sodium 133, potassium 4.0, chloride 94, bicarb 24, BUN was 14, creatinine was 0.6 and glucose was 136. Lactic acid level was elevated at 3.10. Liver function tests were within normal limits. Ammonia within normal limits. CRP level 0.80 unremarkable. Albumin slightly diminished at 3.8. Urinalysis, moderate blood, negative for nitrites and leukocyte esterase. Urine drug screen was negative. Aspirin, Tylenol, alcohol levels negative. Rapid HIV screen has been negative so far. Radiographic studies have been reviewed. Chest x-ray was read by the radiologist. I have also reviewed the radiology. It is a normal chest x-ray, no acute infiltrate. CT of the head was read as a normal CT scan of the head and CT of the abdomen and pelvis showed no acute findings. He also had a KUB done earlier today and it showed NG tube in good position with a nonspecific bowel gas pattern. MICROBIOLOGY STUDIES: No microbiology studies. Urine, no growth for now. ASSESSMENT AND PLAN: We have young gentleman and considering what we found when he was intubated with significant bloody secretions coming out of his lungs and actually now with bilateral infiltrates and the history at presentation mentioned that he might have vomited blood I wonder if what he did was cough up blood. Anyway from a respiratory standpoint, he has been intubated. He will be on full mechanical ventilatory support in the short term. Aspiration precautions and other ventilator bundles will be instituted. Bronchodilators will be scheduled initially and then p.r.n. thereafter. I am actually going to do a bronchoscopy right away to see if I can find a bleeding source and cauterize it chemically. Make sure there are no endobronchial lesions. Oxygen will be weaned to keep sats greater than or equal to about 92-94% initially. From a cardiovascular standpoint, I will be interested in his settling his BMP level but may also need echocardiogram as he may have developed flash pulmonary edema. I think another explanation to this might be that his blood pressure showed up pretty highly at some point overnight and he developed flash pulmonary edema as a result of that as that certainly is what he look likes at intubation, but again I will review the BMP first and then go on from there. One set of cardiac enzymes will be ordered. 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 Neurology seen him consideration for a lumbar puncture will be left to them. He is already on empiric treatment for possible HSV related encephalitis, as well as meningitis. I will get a second history from the family about possible exposures to tick bites. He had denied tick bites, animal bites, photophobia or skin rash earlier or so that was covered in the initial interview. Lactic acid and CRP levels will be trended as necessary. Infectious disease consultation may be requested. We will see how he progresses. Anti-inflammatories will ultimately be de-escalated based on results of clinical and microbiologic data. From a GI and nutritional standpoint, enteral nutrition will be the feeding modality of choice acutely. He will be placed on GI prophylaxis and aspiration precautions will be maintained. From a renal standpoint, there were no major electrolyte abnormalities at presentation except for the mild hyponatremia. Electrolytes will be followed. Inputs and outputs will be followed. Electrolytes will be corrected as necessary. I will be ordering phosphorus and magnesium levels now. From a SALES ENGINEER standpoint, the CT of the brain was negative. He apparently reportedly had a seizure yesterday en route to [facility] before diverting to this facility over here. Despite his alcohol level being normal, one might consider alcohol withdrawal that will really been that he is much of a drinker I will go back and get some more history. He is on empiric meningitis treatment. Neurology evaluation is ongoing. We will defer to them and as mentioned a consideration will be given for lumbar puncture. From a general and hospital healthcare maintenance standpoint, he is going to be on GI and DVT prophylaxis. Flu and pneumonia vaccination will be per protocol. Thank you very much for the consult Dr. Parikh. We will follow along and make further recommendations as picture progresses/becomes clearer. He is critically ill on life-sustaining interventions including mechanical ventilatory support at risk for further deterioration including . At this time, we spent about 35-40 minutes of critical care time without overlap and excluding any procedural time. He has just been intubated with rapid sequence intubation at the bedside. JOB# [id number] TIAGO/NTS
[2016-07-11] MEDS: FLAGYL/NS 1000 MG-200 ML 1,000 MG in VIAFLEX EMPTY CONTAINER 0 ML IV SCH ×3 (14:19→21:26)
--- NOTE | 2016-07-11 14:47 | Magnetic Resonance Report ---
MRI BRAIN WITHOUT CONTRAST INDICATION: Altered mental status. COMPARISON: 07/09/[address] FINDINGS: Noncontrast multiplanar and multisequence MRI of the brain demonstrates extensive hypoxic ischemic injury with diffuse bilateral cerebral cortical and some white matter restricted diffusion, hypodense on ADC. Mild restricted diffusion hyperintense signal also involves the brainstem, more so the midbrain and mindi. Diffuse cerebral edema with loss of sulci also suspected. Ventricles also compressed/smaller. No acute hemorrhage or significant midline shift. No abnormal extra axial fluid collections. Abnormal ICA flow-voids, possibly slow flow versus occluded. Posterior fossa demonstrate symmetric seventh and eighth nerve complexes. Fourth ventricle also smaller, though maintains midline. Cerebellar tonsils extend for approximately 4 mm below the foramen magnum. Normal eye globes. Moderate bilateral ethmoid sinusitis. Small air-fluid levels noted within the right maxillary, right frontal and left sphenoid sinuses. Mild right sphenoid and left frontal sinus mucosal thickening as well. Clear remainder imaged paranasal sinuses and mastoid air cells. A nasogastric tube courses the left nasal passage. Nasopharyngeal fluid also noted. CONCLUSION: 1. MRI appearance in keeping with extensive global ischemia/hypoxic ischemic injury, as detailed above. 2. Other findings, including extensive sinusitis and impending cerebellar tonsillar herniation, as described. I phoned the above results to Dr. Parikh, 2:30 PM, 07/11/2016. Thank you for the opportunity to participate in this patient's care.
--- NOTE | 2016-07-11 15:02 | Magnetic Resonance Report ---
MRA HEAD WITHOUT CONTRAST INDICATION: Altered mental status. COMPARISON: None similar. FINDINGS: MRA of the head performed without intravenous contrast and demonstrates diminutive/bilateral ICAs, occluded at the cavernous sinuses. Minimal flow/diminutive caliber of bilateral MCAs may also be present as on axial CT scan, images 68-73, possibly from the anterior circulation with some flow/signal within the anterior cerebral arteries also noted. Patent, though small vertebrobasilar arteries as well. Flow in the external carotid artery branches identified. CONCLUSION: Bilateral ICA occlusion with [facility] not identified, as described. Thank you for the opportunity to participate in this patient's care.
--- NOTE | 2016-07-11 15:39 | XRay Report ---
Single view chest: Compared to 07/11/16. History: Right arm PICC line placement. Findings: Normal cardiomediastinal silhouette. Trachea is midline. Tip of endotracheal tube in normal position. Tip of right PICC line in MID superior vena cava. Bilateral airspace opacities. Impression: Tip of right PICC line in MID superior vena cava. Bilateral airspace opacities. No pneumothorax.
[2016-07-11] MEDS: LOPRESSOR IV SCH (18:18)
[2016-07-11] MEDS: NACL 0.9% 1000 ML 1,000 ML IV SCH (21:26)
[2016-07-11] MEDS: LEVOPHED 8 MG in NACL 0.9% 250ML 242 ML IV SCH (21:29)
[2016-07-12] MEDS: LOPRESSOR IV SCH ×2 (03:11→13:54)
[2016-07-12] MEDS: VANCOMYCIN 1,250 MG in NACL 0.9% 250ML 250 ML IV SCH ×3 (03:59→20:43)
[2016-07-12] MEDS: DUONEB 0.5 MG-3 MG/3 ML SOLN IH SCH ×4 (04:02→23:25)
[2016-07-12 04:50] LABS: Basophils % (Auto) 0.3 % (0.0-1.8); Eosinophils % (Auto) 0.8 % (0.0-4.3); Hematocrit 38.2 % (35.5-45.6); Hemoglobin 12.5 gm/dl (11.8-15.2); Mean Corpuscular HGB Conc 33 % (32-34); Mean Corpuscular Hemoglobin 31 pg (28-32); Mean Corpuscular Volume 94 fl (84-94); Platelet Count 110 K/mm3 (140-440); Red Blood Count 4.07 M/mm3 (3.65-5.03); Red Cell Distribution Width 13.7 % (13.2-15.2); White Blood Count 13.6 K/mm3 (4.5-11.0)
[2016-07-12 04:54] LABS: Anion Gap 16 mmol/L; BUN/Creatinine Ratio 28.57; Blood Urea Nitrogen 20 mg/dL (9-20); Calcium 7.9 mg/dL (8.4-10.2); Carbon Dioxide 21 mmol/L (22-30); Chloride 110.7 mmol/L (98-107); Glucose 98 mg/dL (75-100); Potassium 3.4 mmol/L (3.6-5.0); Sodium 144 mmol/L (137-145)
--- NOTE | 2016-07-12 04:59 | Consultation ---
CONSULT REQUESTED BY: Dr. Pearl Parikh. REASON FOR CONSULTATION: Cardiac evaluation in this patient who has been intubated. HISTORY OF PRESENT ILLNESS: This 25-year-old patient has been having headaches for the last one week for which he went to [facility] a week ago and he was prescribed antibiotics along with some Motrin for the headaches. After 3 days, he went back to the Emergency Room again and the second time, he was diagnosed with a urinary tract infection. He had nausea and vomiting. He was prescribed antibiotics again along with steroids and he was sent home. Yesterday, the patient was found by his sister incoherent. He was watching television at that time. The patient's elder sister called 911 and wanted him to be taken to the [facility]. On the way to the hospital, the patient was noted to have generalized seizures and therefore he was brought to [facility] for further evaluation. The patient had a CT of the head done and it was reported to be negative. For respiratory failure, he has been intubated. His blood pressure is maintained on Andrés-Synephrine and Levophed, which has been discontinued. The patient is noted to have sinus tachycardia at 150 beats per minute and hospitalist wanted evaluation of his cardiac condition. The patient was in nursing home last month for presumed possession of illegal drugs. According to the sister, he is not using any cocaine. He smoked marijuana a month ago. No history of alcohol consumption in excess, except occasionally once or twice a month, couple of cans of beer. The patient has been working and is looking for another job. No other medical pertinent history like hypertension, diabetes mellitus or recent hospitalization for any heart failure. SOCIAL HISTORY: As mentioned before, the patient is living with sister. No history of smoking cigarettes or alcohol abuse. FAMILY HISTORY: Noncontributory. PHYSICAL EXAMINATION: HEENT: The patient is on the respirator sedated. Pupils were dilated and not reacting to light. NECK: No JVP elevation. HEART: PMI not palpable. The patient in sinus tachycardia. Difficult to hear any murmur or gallops. LUNGS: Reveal diminished breath sounds at the bases. EXTREMITIES: No edema. Labs reviewed. IMPRESSION: 1. Acute seizure disorder, postictal state, intubated. 2. Sinus tachycardia, maybe related to low blood pressure as well as vasopressor agents. DISCUSSION: We will perform echocardiogram after slowing the heart rate down cardiac evaluation. Depending on the results further recommendations will be done.Discussed with patient's sister. After the echo further recommendations will be done. JOB# [id number] SHARDA/AARTI COOLEY
[2016-07-12 05:31] LABS: ISTAT Base Excess -4; ISTAT HCO3 20.9; ISTAT PCO2 34.7 (35-45); ISTAT PH 7.389 (7.35-7.45); ISTAT PO2 82 (80-105); ISTAT SO2 96; ISTAT TCO2 22
[2016-07-12] MEDS: FLAGYL/NS 1000 MG-200 ML 1,000 MG in VIAFLEX EMPTY CONTAINER 0 ML IV SCH (06:31)
[2016-07-12] MEDS: NACL 0.9% IV SCH ×3 (06:32→22:00)
[2016-07-12] MEDS: ZOVIRAX IV SCH ×3 (06:32→22:00)
--- NOTE | 2016-07-12 08:01 | XRay Report ---
AP CHEST: HISTORY: Follow up respiratory failure Lines and support devices are unchanged since yesterday's exam. Heart size is stable. Bilateral perihilar and lower lung infiltrates have decreased by 25%. Trace left pleural effusion is likely present. No pneumothorax. IMPRESSION: Mild improvement in the bilateral lung infiltrates since yesterday's exam.
[2016-07-12] MEDS: KCL 20MEQ/100ML 20 MEQ/100 ML BAG IV SCH ×2 (08:15→09:32)
[2016-07-12] MEDS: KEPPRA 500 MG in D5W 100 ML IV SCH ×2 (09:29→22:00)
[2016-07-12] MEDS: ROCEPHIN/NS 2 GM/100 ML 2 GM/100 ML BAG IV SCH ×2 (09:29→22:00)
[2016-07-12] MEDS: NACL 0.9% 1000 ML 1,000 ML IV SCH ×2 (09:31→18:11)
[2016-07-12] MEDS: PEPCID IV SCH ×2 (09:31→22:00)
--- NOTE | 2016-07-12 09:31 | Progress Note ---
Assessment and Plan Assessment: Acute seizure disorder, postictal state / encephalopathy Acute respiratory failure - intubated. Severe cardiomyopathy - EF 10 - 15%. Sinus tachycardia Meningitis - presumptive diagnosis per ID. Hypotension - requiring pressors. Hypokalemia Leukocytosis Lactic acidosis Plan: Brain MRI showed extensive global ischemia/hypoxic ischemic injury and impending cerebellar tonsillar herniation. Head MRA showed bilateral ICA occlusion. Recommend neurology consultation. Echo reviewed - LV mildly dilated, EF 10-15%, abnormal diastolic function, mild MR. Cont current medical and supportive management. Prognosis is guarded. Assessment and plan reviewed with pt's family at bedside. The patient has been seen in conjunction with Dr. Guadalupe who agrees with the assessment and plan of care. Subjective Date of service: 07/12/16 Principal diagnosis: seizure; CMP Interval history: Pt remains intubated, nonresponsive to any stimuli, off sedation. Vaso gtt infusing. Mildly ST with stable BPs. Family at bedside. Objective Last Vital Signs Temp 98.7 F 07/12/16 08:00 Pulse 111 H 07/12/16 09:16 Resp 20 07/12/16 08:51 BP 107/80 07/12/16 09:16 Pulse Ox 100 07/12/16 09:16 - Physical Examination General: Other (intubated, nonresponsive) HEENT: Positive: PERRL Neck: Positive: neck supple, trachea midline Cardiac: Positive: Regular Rhythm, S1/S2, Tachycardia Lungs: Positive: Decreased Breath Sounds, Oxygen, Ventilated Respirations Neuro: Positive: Other (nonresponsive) Abdomen: Positive: Soft, Active Bowel Sounds Skin: Positive: Clear. Negative: Rash, Wound Musculoskeletal: No Fluid Collection, No Pain, Normal Range of Motion Extremities: Present: upper extr. pulses, lower extr. pulses. Absent: edema - Labs and Meds CBC 07/12/16 Range/Units 04:00 WBC 13.6 H (4.5-11.0) K/mm3 RBC 4.07 (3.65-5.03) M/mm3 Hgb 12.5 (11.8-15.2) gm/dl Hct 38.2 (35.5-45.6) % Plt Count 110 L (140-440) K/mm3 Lymph # 2.0 (1.2-5.4) K/mm3 [place] # 0.8 (0.0-0.8) K/mm3 Eos # 0.1 (0.0-0.4) K/mm3 Baso # 0.0 (0.0-0.1) K/mm3 Comprehensive Metabolic Panel 07/12/16 Range/Units 04:00 Sodium 144 (137-145) mmol/L Potassium 3.4 L (3.6-5.0) mmol/L Chloride 110.7 H (98-107) mmol/L Carbon Dioxide 21 L (22-30) mmol/L BUN 20 (9-20) mg/dL Creatinine 0.7 L (0.8-1.5) mg/dL Glucose 98 (75-100) mg/dL Calcium 7.9 L (8.4-10.2) mg/dL - Imaging and Cardiology EKG: report reviewed, image reviewed Echo: report reviewed - Telemetry EKG Rhythm: Sinus Tachycardia - Allied health notes Allied health notes reviewed: RT
--- NOTE | 2016-07-12 10:04 | Progress Note ---
Assessment and Plan - Patient Problems (1) Acute respiratory failure with hypoxia Current Visit: Yes Status: Acute Plan to address problem: No patient ventilator dysynchrony Brief episode of desaturations so FIO2 increased AC-VC 25/500/5/50% ABG 7.43/27/162/17.9 VAP and critical care bundles addressed. VTE and stress ulcer prophylaxis Aspiration precautions (2) Encephalopathy acute Current Visit: Yes Status: Acute Plan to address problem: MRI- indicative of anoxia with impending herniation. EEG pending Neurology following (3) Cerebral herniation Current Visit: Yes Status: Acute Plan to address problem: Clinical signs at the time of my examination is consistent with probable herniation. 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 Discharged home without clinical improvement. Apparently vomited, with ongoing headaches and lethary/alteration in his mental status/seizures- EMS activated. His was brought to the ED and required oral intubation with mechanical ventilatory support Seen and examined. Vitals, reviewed, medication, chart notes. Required vasopressor support late yesterday evening. Currently on vasopressin with adequate blood pressure. Remains completely unresponsive. Sister and father at the bedside- updated. Neurology wants an EEG done. Objective - Exam Narrative Exam: intubated, FiO2 50% Vital Signs - 12hr 07/11/16 07/11/16 07/11/16 22:11 22:21 22:30 Temperature Pulse Rate 107 H 108 H 106 H Pulse Rate [ Anterior Bilateral Throughout] Pulse Rate [ From Monitor] Respiratory 20 20 20 Rate Respiratory Rate [Anterior Bilateral Throughout] Blood Pressure 111/82 108/80 102/74 O2 Sat by Pulse 99 99 99 Oximetry 07/11/16 07/11/16 07/11/16 22:41 22:51 23:00 Temperature Pulse Rate 107 H 106 H 104 H Pulse Rate [ Anterior Bilateral Throughout] Pulse Rate [ From Monitor] Respiratory 20 20 20 Rate Respiratory Rate [Anterior Bilateral Throughout] Blood Pressure 102/74 105/71 104/75 O2 Sat by Pulse 99 99 99 Oximetry 07/11/16 07/11/16 07/11/16 23:11 23:21 23:27 Temperature Pulse Rate 102 H 101 H 101 H Pulse Rate [ Anterior Bilateral Throughout] Pulse Rate [ From Monitor] Respiratory 20 20 20 Rate Respiratory Rate [Anterior Bilateral Throughout] Blood Pressure 104/75 114/77 114/77 O2 Sat by Pulse 100 100 100 Oximetry 07/11/16 07/11/16 07/11/16 23:30 23:43 23:51 Temperature Pulse Rate 102 H 106 H 101 H Pulse Rate [ Anterior Bilateral Throughout] Pulse Rate [ From Monitor] Respiratory 20 20 20 Rate Respiratory Rate [Anterior Bilateral Throughout] Blood Pressure 117/84 122/81 123/85 O2 Sat by Pulse 100 100 100 Oximetry 07/12/16 07/12/16 07/12/16 00:00 00:11 00:21 Temperature 97.2 F L Pulse Rate 101 H 101 H 103 H Pulse Rate [ 112 H Anterior Bilateral Throughout] Pulse Rate [ From Monitor] Respiratory 20 20 20 Rate Respiratory 20 Rate [Anterior Bilateral Throughout] Blood Pressure 129/84 129/84 128/88 O2 Sat by Pulse 100 100 100 Oximetry 07/12/16 07/12/16 07/12/16 00:24 00:30 00:41 Temperature Pulse Rate 102 H 103 H 101 H Pulse Rate [ Anterior Bilateral Throughout] Pulse Rate [ From Monitor] Respiratory 20 20 Rate Respiratory Rate [Anterior Bilateral Throughout] Blood Pressure 128/88 125/80 125/80 O2 Sat by Pulse 100 100 100 Oximetry 07/12/16 07/12/16 07/12/16 00:51 01:00 01:11 Temperature Pulse Rate 100 H 102 H 101 H Pulse Rate [ Anterior Bilateral Throughout] Pulse Rate [ From Monitor] Respiratory 20 20 20 Rate Respiratory Rate [Anterior Bilateral Throughout] Blood Pressure 126/91 122/79 122/79 O2 Sat by Pulse 100 100 100 Oximetry 07/12/16 07/12/16 07/12/16 01:21 01:30 01:41 Temperature Pulse Rate 105 H 102 H 102 H Pulse Rate [ Anterior Bilateral Throughout] Pulse Rate [ From Monitor] Respiratory 20 20 20 Rate Respiratory Rate [Anterior Bilateral Throughout] Blood Pressure 124/82 125/93 125/93 O2 Sat by Pulse 100 100 100 Oximetry 07/12/16 07/12/16 07/12/16 01:51 02:00 02:11 Temperature Pulse Rate 103 H 103 H 105 H Pulse Rate [ Anterior Bilateral Throughout] Pulse Rate [ From Monitor] Respiratory 20 20 20 Rate Respiratory Rate [Anterior Bilateral Throughout] Blood Pressure 127/91 127/91 127/91 O2 Sat by Pulse 100 100 100 Oximetry 07/12/16 07/12/16 07/12/16 02:21 02:30 02:41 Temperature Pulse Rate 105 H 104 H 105 H Pulse Rate [ Anterior Bilateral Throughout] Pulse Rate [ 105 H From Monitor] Respiratory 20 20 20 Rate Respiratory Rate [Anterior Bilateral Throughout] Blood Pressure 125/90 131/91 131/91 O2 Sat by Pulse 100 99 100 Oximetry 07/12/16 07/12/16 07/12/16 02:51 03:00 03:11 Temperature Pulse Rate 109 H 107 H 107 H Pulse Rate [ Anterior Bilateral Throughout] Pulse Rate [ From Monitor] Respiratory 20 20 20 Rate Respiratory Rate [Anterior Bilateral Throughout] Blood Pressure 131/91 131/97 131/97 O2 Sat by Pulse 99 100 100 Oximetry 07/12/16 07/12/16 07/12/16 03:21 03:30 03:41 Temperature Pulse Rate 109 H 109 H 113 H Pulse Rate [ Anterior Bilateral Throughout] Pulse Rate [ From Monitor] Respiratory 20 20 20 Rate Respiratory Rate [Anterior Bilateral Throughout] Blood Pressure 130/100 123/86 123/86 O2 Sat by Pulse 100 100 99 Oximetry 07/12/16 07/12/16 07/12/16 03:51 04:00 04:11 Temperature 97.6 F Pulse Rate 111 H 112 H 114 H Pulse Rate [ Anterior Bilateral Throughout] Pulse Rate [ From Monitor] Respiratory 20 20 20 Rate Respiratory Rate [Anterior Bilateral Throughout] Blood Pressure 142/105 140/103 123/86 O2 Sat by Pulse 99 100 99 Oximetry 07/12/16 07/12/16 07/12/16 04:21 04:30 04:41 Temperature Pulse Rate 113 H 114 H 114 H Pulse Rate [ Anterior Bilateral Throughout] Pulse Rate [ From Monitor] Respiratory 20 20 20 Rate Respiratory Rate [Anterior Bilateral Throughout] Blood Pressure 141/105 142/102 140/103 O2 Sat by Pulse 99 99 99 Oximetry 07/12/16 07/12/16 07/12/16 04:51 05:00 05:11 Temperature Pulse Rate 113 H 114 H 115 H Pulse Rate [ Anterior Bilateral Throughout] Pulse Rate [ From Monitor] Respiratory 20 20 20 Rate Respiratory Rate [Anterior Bilateral Throughout] Blood Pressure 140/103 140/103 141/102 O2 Sat by Pulse 99 99 100 Oximetry 07/12/16 07/12/16 07/12/16 05:21 05:30 05:41 Temperature Pulse Rate 114 H 114 H 113 H Pulse Rate [ Anterior Bilateral Throughout] Pulse Rate [ From Monitor] Respiratory 20 20 20 Rate Respiratory Rate [Anterior Bilateral Throughout] Blood Pressure 139/101 139/101 139/101 O2 Sat by Pulse 100 100 100 Oximetry 07/12/16 07/12/16 07/12/16 05:51 06:00 06:11 Temperature Pulse Rate 113 H 114 H 114 H Pulse Rate [ Anterior Bilateral Throughout] Pulse Rate [ From Monitor] Respiratory 20 20 20 Rate Respiratory Rate [Anterior Bilateral Throughout] Blood Pressure 140/99 139/100 139/100 O2 Sat by Pulse 100 100 100 Oximetry 07/12/16 07/12/16 07/12/16 06:21 06:30 06:41 Temperature Pulse Rate 114 H 114 H 115 H Pulse Rate [ Anterior Bilateral Throughout] Pulse Rate [ From Monitor] Respiratory 20 20 20 Rate Respiratory Rate [Anterior Bilateral Throughout] Blood Pressure 137/98 135/97 140/99 O2 Sat by Pulse 100 100 100 Oximetry 07/12/16 07/12/16 07/12/16 06:51 07:00 07:11 Temperature Pulse Rate 116 H 116 H 117 H Pulse Rate [ Anterior Bilateral Throughout] Pulse Rate [ From Monitor] Respiratory 20 20 20 Rate Respiratory Rate [Anterior Bilateral Throughout] Blood Pressure 125/91 120/85 135/97 O2 Sat by Pulse 100 100 100 Oximetry 07/12/16 07/12/16 07/12/16 07:21 07:30 07:41 Temperature Pulse Rate 117 H 117 H 115 H Pulse Rate [ Anterior Bilateral Throughout] Pulse Rate [ From Monitor] Respiratory 20 20 20 Rate Respiratory Rate [Anterior Bilateral Throughout] Blood Pressure 121/82 122/83 122/83 O2 Sat by Pulse 100 100 100 Oximetry 07/12/16 07/12/16 07/12/16 07:51 08:00 08:11 Temperature 98.7 F Pulse Rate 112 H 111 H 109 H Pulse Rate [ Anterior Bilateral Throughout] Pulse Rate [ From Monitor] Respiratory 20 20 20 Rate Respiratory Rate [Anterior Bilateral Throughout] Blood Pressure 109/66 105/55 105/55 O2 Sat by Pulse 99 100 100 Oximetry 07/12/16 07/12/16 07/12/16 08:21 08:30 08:41 Temperature Pulse Rate 108 H 108 H 107 H Pulse Rate [ Anterior Bilateral Throughout] Pulse Rate [ From Monitor] Respiratory 20 20 20 Rate Respiratory Rate [Anterior Bilateral Throughout] Blood Pressure 98/58 100/62 98/58 O2 Sat by Pulse 100 100 100 Oximetry 07/12/16 07/12/16 08:51 09:16 Temperature Pulse Rate 109 H 111 H Pulse Rate [ Anterior Bilateral Throughout] Pulse Rate [ From Monitor] Respiratory 20 Rate Respiratory Rate [Anterior Bilateral Throughout] Blood Pressure 104/71 107/80 O2 Sat by Pulse 100 100 Oximetry Constitutional: no acute distress Eyes: non-icteric, other (fixed dialted pupils, no pupillary reaction to light) ENT: oropharynx moist Effort: other (no breaths above the set rate on the ventilator) Cardiovascular: regular rate and rhythm Gastrointestinal: normoactive bowel sounds, soft, non-tender, non-distended Integumentary: normal Extremities: no cyanosis, no edema, pulses normal Neurologic: other (unresponsive, no gag or cough reflex on deep endotracheal tube suctioning.) CBC and BMP: 07/12/16 04:00 07/12/16 04:00 ABG, PT/INR, D-dimer: ABG POC ABG pH 7.389 (7.35-7.45) 07/12/16 05:16 POC ABG pCO2 34.7 (35-45) L 07/12/16 05:16 POC ABG pO2 82 (80-105) 07/12/16 05:16 POC ABG HCO3 20.9 07/12/16 05:16 POC ABG Total CO2 22 07/12/16 05:16 POC ABG O2 Sat 96 07/12/16 05:16 PT/INR, D-dimer PT 14.2 Sec. (12.2-14.9) 07/09/16 20:40 INR 1.11 (0.87-1.13) 07/09/16 20:40 Abnormal lab findings: Abnormal Labs 07/10/16 07/10/16 07/10/16 14:36 14:36 14:55 WBC RDW 13.0 L Plt Count Seg Neutrophils % Lymphocytes % (Manual) Monocytes % (Manual) Seg Neutrophils # Lymphocytes # (Manual) Monocytes # (Manual) POC ABG pH 7.453 H POC ABG pCO2 34.2 L POC ABG pO2 28 L Sodium 131 L Potassium Chloride 93.8 L Carbon Dioxide Creatinine 0.5 L Glucose 149 H POC Glucose Lactic Acid Calcium AST Total Protein Albumin 07/10/16 07/11/16 07/11/16 17:49 04:23 04:24 WBC 17.7 H RDW Plt Count 128 L Seg Neutrophils % Lymphocytes % (Manual) 4.0 L Monocytes % (Manual) 8.0 H Seg Neutrophils # Lymphocytes # (Manual) 0.7 L Monocytes # (Manual) 1.4 H POC ABG pH POC ABG pCO2 POC ABG pO2 124 H Sodium Potassium Chloride Carbon Dioxide Creatinine Glucose POC Glucose Lactic Acid 2.60 H* Calcium AST Total Protein Albumin 07/11/16 07/11/16 07/11/16 04:24 04:50 08:28 WBC RDW Plt Count Seg Neutrophils % Lymphocytes % (Manual) Monocytes % (Manual) Seg Neutrophils # Lymphocytes # (Manual) Monocytes # (Manual) POC ABG pH POC ABG pCO2 33.3 L POC ABG pO2 79 L Sodium Potassium Chloride Carbon Dioxide 20 L Creatinine Glucose 123 H POC Glucose Lactic Acid 2.60 H* Calcium 8.1 L AST 57 H Total Protein 5.8 L Albumin 3.0 L 07/11/16 07/11/16 07/11/16 15:31 21:09 22:22 WBC RDW Plt Count Seg Neutrophils % Lymphocytes % (Manual) Monocytes % (Manual) Seg Neutrophils # Lymphocytes # (Manual) Monocytes # (Manual) POC ABG pH POC ABG pCO2 POC ABG pO2 Sodium Potassium Chloride Carbon Dioxide Creatinine Glucose POC Glucose 129 H 134 H 140 H Lactic Acid Calcium AST Total Protein Albumin 07/12/16 07/12/16 07/12/16 00:12 04:00 04:00 WBC 13.6 H RDW Plt Count 110 L Seg Neutrophils % 78.0 H Lymphocytes % (Manual) Monocytes % (Manual) Seg Neutrophils # 10.6 H Lymphocytes # (Manual) Monocytes # (Manual) POC ABG pH POC ABG pCO2 POC ABG pO2 Sodium Potassium 3.4 L Chloride 110.7 H Carbon Dioxide 21 L Creatinine 0.7 L Glucose POC Glucose 119 H Lactic Acid Calcium 7.9 L AST Total Protein Albumin 07/12/16 05:16 WBC RDW Plt Count Seg Neutrophils % Lymphocytes % (Manual) Monocytes % (Manual) Seg Neutrophils # Lymphocytes # (Manual) Monocytes # (Manual) POC ABG pH POC ABG pCO2 34.7 L POC ABG pO2 Sodium Potassium Chloride Carbon Dioxide Creatinine Glucose POC Glucose Lactic Acid Calcium AST Total Protein Albumin Allied health notes reviewed: RT
--- NOTE | 2016-07-12 12:04 | Progress Note ---
Assessment and Plan - Patient Problems (1) Meningitis Current Visit: Yes Status: Acute Plan to address problem: 1. Presumptive diagnosis. Unable to confirm diagnosis or isolate an organism with an LP. 2. Continue current, empiric antimicrobial regimen for now. 3. Prognosis is very poor with evidence of cerebellar tonsillar herniation and global hypoxia. 4. Okay to discontinue droplet precautions. (2) Cerebral herniation Current Visit: Yes Status: Acute Plan to address problem: Per above with poor prognosis. Neurologist evaluating. Subjective Date of service: 07/12/16 Principal diagnosis: tonsillar herniation; presumptive meningitis Interval history: Patient remains in ICU. Evidence of brain hypoxia and cerebellar herniation on brain MRI. Objective - Exam Narrative Exam: intubated, FiO2 50% - Constitutional Vitals: Vital Signs Temp Pulse Resp BP Pulse Ox 98.7 F 111 H 20 107/80 100 07/12/16 08:00 07/12/16 09:16 07/12/16 08:51 07/12/16 09:16 07/12/16 09:16 Temperature -Last 24 Hours Temperature 98.7 F Temperature 97.6 F Temperature 97.2 F Temperature 97.6 F Temperature 96 F General appearance: Present: well-nourished (young friend at bedside) - EENT Eyes: no conjunctival injection, no discharge ENT: other (NG and ET tubes in place) - Respiratory Respiratory: bilateral: CTA - Cardiovascular Rhythm: regular (tachycardic) Heart Sounds: Present: S1 & S2 Extremities: No edema - Gastrointestinal General gastrointestinal: Present: soft, non-distended - Genitourinary Male genitourinary: normal ([place] with yellow urine) - Integumentary Integumentary: no rash - Neurologic Neurologic: other (absent brainstem reflexes) - Labs CBC & Chem 7: 07/12/16 04:00 07/12/16 04:00 Labs: Abnormal lab results 07/11/16 07/11/16 07/11/16 Range/Units 15:31 21:09 22:22 WBC (4.5-11.0) K/mm3 Plt Count (140-440) K/mm3 Seg Neutrophils % (40.0-70.0) % Seg Neutrophils # (1.8-7.7) K/mm3 POC ABG pCO2 (35-45) Potassium (3.6-5.0) mmol/L Chloride (98-107) mmol/L Carbon Dioxide (22-30) mmol/L Creatinine (0.8-1.5) mg/dL POC Glucose 129 H 134 H 140 H (70-105) Calcium (8.4-10.2) mg/dL 07/12/16 07/12/16 07/12/16 Range/Units 00:12 04:00 04:00 WBC 13.6 H (4.5-11.0) K/mm3 Plt Count 110 L (140-440) K/mm3 Seg Neutrophils % 78.0 H (40.0-70.0) % Seg Neutrophils # 10.6 H (1.8-7.7) K/mm3 POC ABG pCO2 (35-45) Potassium 3.4 L (3.6-5.0) mmol/L Chloride 110.7 H (98-107) mmol/L Carbon Dioxide 21 L (22-30) mmol/L Creatinine 0.7 L (0.8-1.5) mg/dL POC Glucose 119 H (70-105) Calcium 7.9 L (8.4-10.2) mg/dL 07/12/16 Range/Units 05:16 WBC (4.5-11.0) K/mm3 Plt Count (140-440) K/mm3 Seg Neutrophils % (40.0-70.0) % Seg Neutrophils # (1.8-7.7) K/mm3 POC ABG pCO2 34.7 L (35-45) Potassium (3.6-5.0) mmol/L Chloride (98-107) mmol/L Carbon Dioxide (22-30) mmol/L Creatinine (0.8-1.5) mg/dL POC Glucose (70-105) Calcium (8.4-10.2) mg/dL Microbiology 07/10/16 16:15 Tracheal Aspirate Sputum Culture - Final 07/10/16 14:38 Peripheral/Venous Blood Culture - Preliminary NO GROWTH AFTER 24 HOURS 07/10/16 14:43 Peripheral/Venous Blood Culture - Preliminary NO GROWTH AFTER 24 HOURS 07/11/16 10:42 Serum Cryptococcal Antigen - Final 07/09/16 20:35 Urine,Catheterized - Straight Catheter Urine Culture - Final NO GROWTH AFTER 48 HOURS Active Medications Acetaminophen (Tylenol) 650 mg PO Q4H PRN PRN Reason: Pain MILD(1-3)/Fever >100.5/GUTIERREZ Albuterol (Proventil) 2.5 mg IH Q6HRT PRN PRN Reason: Shortness Of Breath Last Admin: 07/12/16 00:27 Dose: 2.5 mg Albuterol/Ipratropium (Duoneb 0.5 Mg-3 Mg/3 Ml Soln) 1 ampul IH Q8HRT [facility] Last Admin: 07/12/16 09:10 Dose: 1 ampul Bisacodyl (Dulcolax) 10 mg UT QDAY PRN PRN Reason: Constipation unrelieved by MOM Famotidine (Pepcid) 20 mg IV BID [facility] Last Admin: 07/12/16 09:31 Dose: 20 mg Hydralazine HCl (Apresoline) 5 mg IV Q30MIN PRN PRN Reason: Hypertension Hydrophilic Ointment (Vaseline Lip Therapy) 1 applic TP Q2HR PRN PRN Reason: Dry Lips Acyclovir 770 mg/ Sodium (Chloride) 115.4 mls @ 100 mls/hr IV Q8HR DANNY PRN Reason: Protocol Last Admin: 07/12/16 06:32 Dose: 100 mls/hr Vancomycin HCl 1,250 mg/ (Sodium Chloride) 275 mls @ 166.667 mls/hr IV Q8H [facility] Last Admin: 07/12/16 03:59 Dose: 166.667 mls/hr Levetiracetam 500 mg/ Dextrose 105 mls @ 400 mls/hr IV Q12HR [facility] Last Admin: 07/12/16 09:29 Dose: 400 mls/hr Ceftriaxone Sodium (Rocephin/Ns 2 Gm/100 Ml) 2 gm in 100 mls @ 200 mls/hr IV Q12HR [facility] Last Admin: 07/12/16 09:29 Dose: 200 mls/hr Fentanyl Citrate (Fentanyl Drip Premix) 2,000 mcg in 100 mls @ 3.856 mls/hr IV TITR DANNY; 1 MCG/KG/HR PRN Reason: Protocol Propofol (Diprivan 10 Mg/Ml) 1,000 mg in 100 mls @ 2.313 mls/hr IV TITR DANNY; 5 MCG/KG/MIN PRN Reason: Protocol Last Titration: 07/11/16 10:30 Dose: 0 mcg/kg/min, 0 mls/hr Vasopressin 20 unit/ Sodium (Chloride) 101 mls @ 9.09 mls/hr IV TITR DANNY; 0.03 UNITS/MIN PRN Reason: Protocol Last Titration: 07/11/16 13:30 Dose: 0.04 units/min, 12.12 mls/hr Norepinephrine 8 mg/ Sodium (Chloride) 250 mls @ 3.75 mls/hr IV TITR DANNY; 2 MCG /MIN PRN Reason: Protocol Last Titration: 07/12/16 09:00 Dose: 0 mcg/min, 0 mls/hr Sodium Chloride (Nacl 0.9% 1000 Ml) 1,000 mls @ 150 mls/hr IV DIRECT DANNY Last Admin: 07/12/16 09:31 Dose: 150 mls/hr Metronidazole 1,000 mg/ (Miscellaneous Information) 200 mls @ 200 mls/hr IV Q8HR DANNY Stop: 07/12/16 12:59 Last Admin: 07/12/16 06:31 Dose: 200 mls/hr Metronidazole (Flagyl 500 Mg/100 Ml) 500 mg in 100 mls @ 100 mls/hr IV Q8HR DANNY Lorazepam (Ativan) 2 mg IV Q4H PRN PRN Reason: Agitation Last Admin: 07/10/16 14:04 Dose: 2 mg Magnesium Hydroxide (Milk Of Magnesia) 30 ml PO Q4H PRN PRN Reason: Constipation Metoprolol Tartrate (Lopressor) 5 mg IV Q8H DANNY Last Admin: 07/12/16 03:11 Dose: Not Given Multi-Ingred Cream/Lotion/Oil/Oint (Artificial Tears Ophth Oint) 1 applic OU Q4HR PRN PRN Reason: Dry Eye(s) Ondansetron HCl (Zofran) 4 mg IV Q8H PRN PRN Reason: N/V unrelieved by Reglan Vancomycin HCl (Vancomycin Pharmacy To Dose) 1 each IV PKCONSULT DANNY PRN Reason: Protocol - Imaging and cardiology MRI - head: report reviewed (sinusitis, global hypoxic injury, impending cerebellar tonsillar herniation)
--- NOTE | 2016-07-12 12:56 | Consultation ---
History of Present Illness - Reason for Consult Consult date: 07/12/16 neuro status - History of Present Illness spoke to the radiologist yesterday and brain MRI showed diffuse swelling a/w brain edema most likely profound hypoxia since TUBE LANCER infections generally do not cause this pattern unless viral ( patient has adequate coverage for viral/ bacterial etiologies) I dictated long note at the time he was intubated for severe respiratory distress did not believe cause was TUBE LANCER I also want to look over the fgirst CT of brain the EEG today does not look good suspect we will need nuclear blood flow study to establish brain will not recover Past History Past Medical History: No medical history, other (reviewed) Past Surgical History: No surgical history, Other (reviewed) Social history: single, lives with family Family history: hypertension Medications and Allergies Allergies Allergy/AdvReac Type Severity Reaction Status Date / Time No Known Allergies Allergy Verified 11/06/15 04:00 Home Medications Medication Instructions Recorded Confirmed Last Taken Type Amoxicillin/K Clav Tab [Augmentin 1 tab PO Q12HR 07/09/16 07/09/16 Unknown History 875 mg] HYDROcodone/APAP 5-325 [[place] 1 each PO Q4HR PRN 07/09/16 07/09/16 Unknown History 5/325] Ibuprofen [Motrin] 800 mg PO Q8HR PRN 07/09/16 07/09/16 Unknown History Levofloxacin [Levaquin TAB] 500 mg PO QDAY 07/09/16 07/09/16 Unknown History Ondansetron [Zofran Odt] 4 mg PO Q8HR 07/09/16 07/09/16 Unknown History Prednisone [predniSONE 10 mg 10 mg PO .TAPER 07/09/16 07/09/16 Unknown History (6-Day Pack, 21 Tabs)] Active Meds: Active Medications Acetaminophen (Tylenol) 650 mg PO Q4H PRN PRN Reason: Pain MILD(1-3)/Fever >100.5/GUTIERREZ Albuterol (Proventil) 2.5 mg IH Q6HRT PRN PRN Reason: Shortness Of Breath Last Admin: 07/12/16 00:27 Dose: 2.5 mg Albuterol/Ipratropium (Duoneb 0.5 Mg-3 Mg/3 Ml Soln) 1 ampul IH Q8HRT DANNY Last Admin: 07/12/16 09:10 Dose: 1 ampul Bisacodyl (Dulcolax) 10 mg [place] QDAY PRN PRN Reason: Constipation unrelieved by MOM Famotidine (Pepcid) 20 mg IV BID [facility] Last Admin: 07/12/16 09:31 Dose: 20 mg Hydralazine HCl (Apresoline) 5 mg IV Q30MIN PRN PRN Reason: Hypertension Hydrophilic Ointment (Vaseline Lip Therapy) 1 applic TP Q2HR PRN PRN Reason: Dry Lips Acyclovir 770 mg/ Sodium (Chloride) 115.4 mls @ 100 mls/hr IV Q8HR DANNY PRN Reason: Protocol Last Admin: 07/12/16 06:32 Dose: 100 mls/hr Vancomycin HCl 1,250 mg/ (Sodium Chloride) 275 mls @ 166.667 mls/hr IV Q8H [facility] Last Admin: 07/12/16 03:59 Dose: 166.667 mls/hr Levetiracetam 500 mg/ Dextrose 105 mls @ 400 mls/hr IV Q12HR [facility] Last Admin: 07/12/16 09:29 Dose: 400 mls/hr Ceftriaxone Sodium (Rocephin/Ns 2 Gm/100 Ml) 2 gm in 100 mls @ 200 mls/hr IV Q12HR [facility] Last Admin: 07/12/16 09:29 Dose: 200 mls/hr Fentanyl Citrate (Fentanyl Drip Premix) 2,000 mcg in 100 mls @ 3.856 mls/hr IV TITR DANNY; 1 MCG/KG/HR PRN Reason: Protocol Propofol (Diprivan 10 Mg/Ml) 1,000 mg in 100 mls @ 2.313 mls/hr IV TITR DANNY; 5 MCG/KG/MIN PRN Reason: Protocol Last Titration: 07/11/16 10:30 Dose: 0 mcg/kg/min, 0 mls/hr Vasopressin 20 unit/ Sodium (Chloride) 101 mls @ 9.09 mls/hr IV TITR DANNY; 0.03 UNITS/MIN PRN Reason: Protocol Last Titration: 07/11/16 13:30 Dose: 0.04 units/min, 12.12 mls/hr Norepinephrine 8 mg/ Sodium (Chloride) 250 mls @ 3.75 mls/hr IV TITR DANNY; 2 MCG /MIN PRN Reason: Protocol Last Titration: 07/12/16 09:00 Dose: 0 mcg/min, 0 mls/hr Sodium Chloride (Nacl 0.9% 1000 Ml) 1,000 mls @ 150 mls/hr IV DIRECT DANNY Last Admin: 07/12/16 09:31 Dose: 150 mls/hr Metronidazole 1,000 mg/ (Miscellaneous Information) 200 mls @ 200 mls/hr IV Q8HR [facility] Stop: 07/12/16 12:59 Last Admin: 07/12/16 06:31 Dose: 200 mls/hr Metronidazole (Flagyl 500 Mg/100 Ml) 500 mg in 100 mls @ 100 mls/hr IV Q8HR DANNY Lorazepam (Ativan) 2 mg IV Q4H PRN PRN Reason: Agitation Last Admin: 07/10/16 14:04 Dose: 2 mg Magnesium Hydroxide (Milk Of Magnesia) 30 ml PO Q4H PRN PRN Reason: Constipation Metoprolol Tartrate (Lopressor) 5 mg IV Q8H [facility] Last Admin: 07/12/16 03:11 Dose: Not Given Multi-Ingred Cream/Lotion/Oil/Oint (Artificial Tears Ophth Oint) 1 applic OU Q4HR PRN PRN Reason: Dry Eye(s) Ondansetron HCl (Zofran) 4 mg IV Q8H PRN PRN Reason: N/V unrelieved by Areli Vancomycin HCl (Vancomycin Pharmacy To Dose) 1 each IV PKCONSULT DANNY PRN Reason: Protocol Exam - Constitutional Vitals: Temp Pulse Resp BP Pulse Ox 98.7 F 111 H 20 107/80 100 07/12/16 08:00 07/12/16 09:16 07/12/16 08:51 07/12/16 09:16 07/12/16 09:16 Results - Labs CBC & Chem 7: 07/12/16 04:00 07/12/16 04:00 Labs: Abnormal lab results 07/11/16 07/11/16 07/11/16 Range/Units 15:31 21:09 22:22 WBC (4.5-11.0) K/mm3 Plt Count (140-440) K/mm3 Seg Neutrophils % (40.0-70.0) % Seg Neutrophils # (1.8-7.7) K/mm3 POC ABG pCO2 (35-45) Potassium (3.6-5.0) mmol/L Chloride (98-107) mmol/L Carbon Dioxide (22-30) mmol/L Creatinine (0.8-1.5) mg/dL POC Glucose 129 H 134 H 140 H (70-105) Calcium (8.4-10.2) mg/dL 07/12/16 07/12/16 07/12/16 Range/Units 00:12 04:00 04:00 WBC 13.6 H (4.5-11.0) K/mm3 Plt Count 110 L (140-440) K/mm3 Seg Neutrophils % 78.0 H (40.0-70.0) % Seg Neutrophils # 10.6 H (1.8-7.7) K/mm3 POC ABG pCO2 (35-45) Potassium 3.4 L (3.6-5.0) mmol/L Chloride 110.7 H (98-107) mmol/L Carbon Dioxide 21 L (22-30) mmol/L Creatinine 0.7 L (0.8-1.5) mg/dL POC Glucose 119 H (70-105) Calcium 7.9 L (8.4-10.2) mg/dL 07/12/16 Range/Units 05:16 WBC (4.5-11.0) K/mm3 Plt Count (140-440) K/mm3 Seg Neutrophils % (40.0-70.0) % Seg Neutrophils # (1.8-7.7) K/mm3 POC ABG pCO2 34.7 L (35-45) Potassium (3.6-5.0) mmol/L Chloride (98-107) mmol/L Carbon Dioxide (22-30) mmol/L Creatinine (0.8-1.5) mg/dL POC Glucose (70-105) Calcium (8.4-10.2) mg/dL
--- NOTE | 2016-07-12 13:35 | Consultation ---
History of Present Illness - Reason for Consult Consult date: 07/12/16 follow up - History of Present Illness I went over all images from radiology department and the 10:[address] scan of the head ( Monday evening in retrospect was normal} Dr. Huynh and I both agree on this the next neuro imaging study was monday and that MRI showed pattern of severe diffuse hypoxia and brain edema from the hypoxia... I do not see a primary YARD DRIVER process as the cause of this Past History Past Medical History: No medical history, other (reviewed) Past Surgical History: No surgical history, Other (reviewed) Social history: single, lives with family Family history: hypertension Medications and Allergies Allergies Allergy/AdvReac Type Severity Reaction Status Date / Time No Known Allergies Allergy Verified 11/06/15 04:00 Home Medications Medication Instructions Recorded Confirmed Last Taken Type Amoxicillin/K Clav Tab [Augmentin 1 tab PO Q12HR 07/09/16 07/09/16 Unknown History 875 mg] HYDROcodone/APAP 5-325 [[place] 1 each PO Q4HR PRN 07/09/16 07/09/16 Unknown History 5/325] Ibuprofen [Motrin] 800 mg PO Q8HR PRN 07/09/16 07/09/16 Unknown History Levofloxacin [Levaquin TAB] 500 mg PO QDAY 07/09/16 07/09/16 Unknown History Ondansetron [Zofran Odt] 4 mg PO Q8HR 07/09/16 07/09/16 Unknown History Prednisone [predniSONE 10 mg 10 mg PO .TAPER 07/09/16 07/09/16 Unknown History (6-Day Pack, 21 Tabs)] Active Meds: Active Medications Acetaminophen (Tylenol) 650 mg PO Q4H PRN PRN Reason: Pain MILD(1-3)/Fever >100.5/GUTIERREZ Albuterol (Proventil) 2.5 mg IH Q6HRT PRN PRN Reason: Shortness Of Breath Last Admin: 07/12/16 00:27 Dose: 2.5 mg Albuterol/Ipratropium (Duoneb 0.5 Mg-3 Mg/3 Ml Soln) 1 ampul IH Q8HRT DANNY Last Admin: 07/12/16 09:10 Dose: 1 ampul Bisacodyl (Dulcolax) 10 mg [place] QDAY PRN PRN Reason: Constipation unrelieved by MOM Famotidine (Pepcid) 20 mg IV BID [facility] Last Admin: 07/12/16 09:31 Dose: 20 mg Hydralazine HCl (Apresoline) 5 mg IV Q30MIN PRN PRN Reason: Hypertension Hydrophilic Ointment (Vaseline Lip Therapy) 1 applic TP Q2HR PRN PRN Reason: Dry Lips Acyclovir 770 mg/ Sodium (Chloride) 115.4 mls @ 100 mls/hr IV Q8HR DANNY PRN Reason: Protocol Last Admin: 07/12/16 06:32 Dose: 100 mls/hr Vancomycin HCl 1,250 mg/ (Sodium Chloride) 275 mls @ 166.667 mls/hr IV Q8H [facility] Last Admin: 07/12/16 03:59 Dose: 166.667 mls/hr Levetiracetam 500 mg/ Dextrose 105 mls @ 400 mls/hr IV Q12HR [facility] Last Admin: 07/12/16 09:29 Dose: 400 mls/hr Ceftriaxone Sodium (Rocephin/Ns 2 Gm/100 Ml) 2 gm in 100 mls @ 200 mls/hr IV Q12HR [facility] Last Admin: 07/12/16 09:29 Dose: 200 mls/hr Fentanyl Citrate (Fentanyl Drip Premix) 2,000 mcg in 100 mls @ 3.856 mls/hr IV TITR DANNY; 1 MCG/KG/HR PRN Reason: Protocol Propofol (Diprivan 10 Mg/Ml) 1,000 mg in 100 mls @ 2.313 mls/hr IV TITR DANNY; 5 MCG/KG/MIN PRN Reason: Protocol Last Titration: 07/11/16 10:30 Dose: 0 mcg/kg/min, 0 mls/hr Vasopressin 20 unit/ Sodium (Chloride) 101 mls @ 9.09 mls/hr IV TITR DANNY; 0.03 UNITS/MIN PRN Reason: Protocol Last Titration: 07/11/16 13:30 Dose: 0.04 units/min, 12.12 mls/hr Norepinephrine 8 mg/ Sodium (Chloride) 250 mls @ 3.75 mls/hr IV TITR DANNY; 2 MCG /MIN PRN Reason: Protocol Last Titration: 07/12/16 09:00 Dose: 0 mcg/min, 0 mls/hr Sodium Chloride (Nacl 0.9% 1000 Ml) 1,000 mls @ 150 mls/hr IV DIRECT DANNY Last Admin: 07/12/16 09:31 Dose: 150 mls/hr Metronidazole (Flagyl 500 Mg/100 Ml) 500 mg in 100 mls @ 100 mls/hr IV Q8HR DANNY Lorazepam (Ativan) 2 mg IV Q4H PRN PRN Reason: Agitation Last Admin: 07/10/16 14:04 Dose: 2 mg Magnesium Hydroxide (Milk Of Magnesia) 30 ml PO Q4H PRN PRN Reason: Constipation Metoprolol Tartrate (Lopressor) 5 mg IV Q8H DANNY Last Admin: 07/12/16 03:11 Dose: Not Given Multi-Ingred Cream/Lotion/Oil/Oint (Artificial Tears Ophth Oint) 1 applic OU Q4HR PRN PRN Reason: Dry Eye(s) Ondansetron HCl (Zofran) 4 mg IV Q8H PRN PRN Reason: N/V unrelieved by Areli Vancomycin HCl (Vancomycin Pharmacy To Dose) 1 each IV PKCONSULT DANNY PRN Reason: Protocol Exam - Constitutional Vitals: Temp Pulse Resp BP Pulse Ox 98.7 F 111 H 20 107/80 100 07/12/16 08:00 07/12/16 09:16 07/12/16 08:51 07/12/16 09:16 07/12/16 09:16 Results - Labs CBC & Chem 7: 07/12/16 04:00 07/12/16 04:00 Labs: Abnormal lab results 07/11/16 07/11/16 07/11/16 Range/Units 15:31 21:09 22:22 WBC (4.5-11.0) K/mm3 Plt Count (140-440) K/mm3 Seg Neutrophils % (40.0-70.0) % Seg Neutrophils # (1.8-7.7) K/mm3 POC ABG pCO2 (35-45) Potassium (3.6-5.0) mmol/L Chloride (98-107) mmol/L Carbon Dioxide (22-30) mmol/L Creatinine (0.8-1.5) mg/dL POC Glucose 129 H 134 H 140 H (70-105) Calcium (8.4-10.2) mg/dL 07/12/16 07/12/16 07/12/16 Range/Units 00:12 04:00 04:00 WBC 13.6 H (4.5-11.0) K/mm3 Plt Count 110 L (140-440) K/mm3 Seg Neutrophils % 78.0 H (40.0-70.0) % Seg Neutrophils # 10.6 H (1.8-7.7) K/mm3 POC ABG pCO2 (35-45) Potassium 3.4 L (3.6-5.0) mmol/L Chloride 110.7 H (98-107) mmol/L Carbon Dioxide 21 L (22-30) mmol/L Creatinine 0.7 L (0.8-1.5) mg/dL POC Glucose 119 H (70-105) Calcium 7.9 L (8.4-10.2) mg/dL 07/12/16 Range/Units 05:16 WBC (4.5-11.0) K/mm3 Plt Count (140-440) K/mm3 Seg Neutrophils % (40.0-70.0) % Seg Neutrophils # (1.8-7.7) K/mm3 POC ABG pCO2 34.7 L (35-45) Potassium (3.6-5.0) mmol/L Chloride (98-107) mmol/L Carbon Dioxide (22-30) mmol/L Creatinine (0.8-1.5) mg/dL POC Glucose (70-105) Calcium (8.4-10.2) mg/dL
[2016-07-12] MEDS: FLAGYL 500 MG/100 ML 500 MG/100 ML BAG IV SCH ×2 (13:54→22:00)
--- NOTE | 2016-07-12 15:04 | Consultation ---
History of Present Illness - Reason for Consult Consult date: 07/12/16 follow up neuro consult - History of Present Illness please review my prior two dictated consults as well as note on the CT and MRI scans formal bedside exam pupils are max dialted and [place] Doll's eYES ARE ABSENT NO SPONTANEOUS MOVEMENT NO RESPONSE TO PAIN NO GAG NO CORNEAL REFLEXXES NO EVIDENCE OF ANY BRAIN ACITIVITY TO EXAM- SINCE THIS IS HYPOXIC INJURY RECOVERY AT 2 DAYS POST ONSET UNLIKELY WOULD GET NUCLEAR MEDICINE BLOOD FLOW STUDY MONDAY I HONESTLY SEE NO POTENTIAL FOR RECOVERY Past History Past Medical History: No medical history, other (reviewed) Past Surgical History: No surgical history, Other (reviewed) Social history: single, lives with family Family history: hypertension Medications and Allergies Allergies Allergy/AdvReac Type Severity Reaction Status Date / Time No Known Allergies Allergy Verified 11/06/15 04:00 Home Medications Medication Instructions Recorded Confirmed Last Taken Type Amoxicillin/K Clav Tab [Augmentin 1 tab PO Q12HR 07/09/16 07/09/16 Unknown History 875 mg] HYDROcodone/APAP 5-325 [[place] 1 each PO Q4HR PRN 07/09/16 07/09/16 Unknown History 5/325] Ibuprofen [Motrin] 800 mg PO Q8HR PRN 07/09/16 07/09/16 Unknown History Levofloxacin [Levaquin TAB] 500 mg PO QDAY 07/09/16 07/09/16 Unknown History Ondansetron [Zofran Odt] 4 mg PO Q8HR 07/09/16 07/09/16 Unknown History Prednisone [predniSONE 10 mg 10 mg PO .TAPER 07/09/16 07/09/16 Unknown History (6-Day Pack, 21 Tabs)] Active Meds: Active Medications Acetaminophen (Tylenol) 650 mg PO Q4H PRN PRN Reason: Pain MILD(1-3)/Fever >100.5/GUTIERREZ Albuterol (Proventil) 2.5 mg IH Q6HRT PRN PRN Reason: Shortness Of Breath Last Admin: 07/12/16 00:27 Dose: 2.5 mg Albuterol/Ipratropium (Duoneb 0.5 Mg-3 Mg/3 Ml Soln) 1 ampul IH Q8HRT DANNY Last Admin: 07/12/16 09:10 Dose: 1 ampul Bisacodyl (Dulcolax) 10 mg [place] QDAY PRN PRN Reason: Constipation unrelieved by MOM Famotidine (Pepcid) 20 mg IV BID [facility] Last Admin: 07/12/16 09:31 Dose: 20 mg Hydralazine HCl (Apresoline) 5 mg IV Q30MIN PRN PRN Reason: Hypertension Hydrophilic Ointment (Vaseline Lip Therapy) 1 applic TP Q2HR PRN PRN Reason: Dry Lips Acyclovir 770 mg/ Sodium (Chloride) 115.4 mls @ 100 mls/hr IV Q8HR DANNY PRN Reason: Protocol Last Admin: 07/12/16 13:53 Dose: 100 mls/hr Vancomycin HCl 1,250 mg/ (Sodium Chloride) 275 mls @ 166.667 mls/hr IV Q8H [facility] Last Admin: 07/12/16 13:53 Dose: 166.667 mls/hr Levetiracetam 500 mg/ Dextrose 105 mls @ 400 mls/hr IV Q12HR [facility] Last Admin: 07/12/16 09:29 Dose: 400 mls/hr Ceftriaxone Sodium (Rocephin/Ns 2 Gm/100 Ml) 2 gm in 100 mls @ 200 mls/hr IV Q12HR [facility] Last Admin: 07/12/16 09:29 Dose: 200 mls/hr Fentanyl Citrate (Fentanyl Drip Premix) 2,000 mcg in 100 mls @ 3.856 mls/hr IV TITR DANNY; 1 MCG/KG/HR PRN Reason: Protocol Propofol (Diprivan 10 Mg/Ml) 1,000 mg in 100 mls @ 2.313 mls/hr IV TITR DANNY; 5 MCG/KG/MIN PRN Reason: Protocol Last Titration: 07/11/16 10:30 Dose: 0 mcg/kg/min, 0 mls/hr Vasopressin 20 unit/ Sodium (Chloride) 101 mls @ 9.09 mls/hr IV TITR DANNY; 0.03 UNITS/MIN PRN Reason: Protocol Last Titration: 07/11/16 13:30 Dose: 0.04 units/min, 12.12 mls/hr Norepinephrine 8 mg/ Sodium (Chloride) 250 mls @ 3.75 mls/hr IV TITR DANNY; 2 MCG /MIN PRN Reason: Protocol Last Titration: 07/12/16 09:00 Dose: 0 mcg/min, 0 mls/hr Sodium Chloride (Nacl 0.9% 1000 Ml) 1,000 mls @ 150 mls/hr IV DIRECT [facility] Last Admin: 07/12/16 09:31 Dose: 150 mls/hr Metronidazole (Flagyl 500 Mg/100 Ml) 500 mg in 100 mls @ 100 mls/hr IV Q8HR [facility] Last Admin: 07/12/16 13:54 Dose: 100 mls/hr Lorazepam (Ativan) 2 mg IV Q4H PRN PRN Reason: Agitation Last Admin: 07/10/16 14:04 Dose: 2 mg Magnesium Hydroxide (Milk Of Magnesia) 30 ml PO Q4H PRN PRN Reason: Constipation Metoprolol Tartrate (Lopressor) 5 mg IV Q8H [facility] Last Admin: 07/12/16 13:54 Dose: Not Given Multi-Ingred Cream/Lotion/Oil/Oint (Artificial Tears Ophth Oint) 1 applic OU Q4HR PRN PRN Reason: Dry Eye(s) Ondansetron HCl (Zofran) 4 mg IV Q8H PRN PRN Reason: N/V unrelieved by Areli Vancomycin HCl (Vancomycin Pharmacy To Dose) 1 each IV PKCONSULT [facility] PRN Reason: Protocol Exam - Constitutional Vitals: Temp Pulse Resp BP Pulse Ox 98.7 F 119 H 20 134/100 110 H 07/12/16 08:00 07/12/16 14:10 07/12/16 09:25 07/12/16 14:10 07/12/16 14:10 Results - Labs CBC & Chem 7: 07/12/16 04:00 07/12/16 04:00 Labs: Abnormal lab results 07/11/16 07/11/16 07/11/16 Range/Units 15:31 21:09 22:22 WBC (4.5-11.0) K/mm3 Plt Count (140-440) K/mm3 Seg Neutrophils % (40.0-70.0) % Seg Neutrophils # (1.8-7.7) K/mm3 POC ABG pCO2 (35-45) Potassium (3.6-5.0) mmol/L Chloride (98-107) mmol/L Carbon Dioxide (22-30) mmol/L Creatinine (0.8-1.5) mg/dL POC Glucose 129 H 134 H 140 H (70-105) Calcium (8.4-10.2) mg/dL 07/12/16 07/12/16 07/12/16 Range/Units 00:12 04:00 04:00 WBC 13.6 H (4.5-11.0) K/mm3 Plt Count 110 L (140-440) K/mm3 Seg Neutrophils % 78.0 H (40.0-70.0) % Seg Neutrophils # 10.6 H (1.8-7.7) K/mm3 POC ABG pCO2 (35-45) Potassium 3.4 L (3.6-5.0) mmol/L Chloride 110.7 H (98-107) mmol/L Carbon Dioxide 21 L (22-30) mmol/L Creatinine 0.7 L (0.8-1.5) mg/dL POC Glucose 119 H (70-105) Calcium 7.9 L (8.4-10.2) mg/dL 07/12/16 Range/Units 05:16 WBC (4.5-11.0) K/mm3 Plt Count (140-440) K/mm3 Seg Neutrophils % (40.0-70.0) % Seg Neutrophils # (1.8-7.7) K/mm3 POC ABG pCO2 34.7 L (35-45) Potassium (3.6-5.0) mmol/L Chloride (98-107) mmol/L Carbon Dioxide (22-30) mmol/L Creatinine (0.8-1.5) mg/dL POC Glucose (70-105) Calcium (8.4-10.2) mg/dL
--- NOTE | 2016-07-12 20:19 | Progress Note ---
Assessment and Plan Assessment and plan: 25 yo AAElis with no past medical history started to have headaches and upper respiratory symptoms about a week ago; presented to ER and was prescibed antibiotics, but his condition worsened progressively, became unresponsive and had a seizure and possible hematemesis per his family report; EMS was called and brought to the hospital 1. Acute respiratory failure Intubated, on full ventilator support, Pulmonary following 2. Acute encephalopathy ? Infection/Hypoxia/Anoxic brain injury Supportive care 3. Shock Septic/Cardiogenic/Neurogenic Antibiotics, antivirals, IVF, vasopressors 4. Cerebral herniation MRI showing global ischemia/anoxic brain injury and impending cerebellar tonsillar herniation 5. Meningitis/encephalitis? Presumptive diagnosis LP unable to be obtained given MRI findings On empiric treatment per ID 6. Seizure Started on AED Neurology following 7. Sepsis Continue treatment as stated above 8. Acute systolic heart failure Possible acute viral cardiomyopathy Suppotive care 9. Hypokalemia Replace and monitor 10. Thrombocytopenia Posible secondary to sepsis 11. DVT/GI prophylaxis 12. Prognosis extremely poor given cerebral herniation. Family updated CC 45 min History Interval history: unresponsive scheduled for brain flow study in am family updated about extremely poor prognosis Hospitalist Physical - Constitutional Vitals: Temp Pulse Resp BP Pulse Ox 96.0 F L 117 H 20 109/72 100 07/12/16 20:00 07/12/16 19:38 07/12/16 19:21 07/12/16 19:38 07/12/16 19:38 General appearance: Present: other (young, normal appearing male, but completely unresponsive) - EENT Eyes: Present: mydriasis - Neck Neck: Absent: enlarged thyroid, masses or JVD, carotid bruits - Respiratory Respiratory effort: other (intubated) Respiratory: bilateral: CTA, negative: rhonchi, wheezing - Cardiovascular Rhythm: other (tachycardic) Heart Sounds: Present: S1 & S2. Absent: systolic murmur - Extremities Extremities: no ischemia, No edema - Abdominal General gastrointestinal: soft, non-distended, hypoactive bowel sounds, no hepatomegaly, no splenomegaly - Psychiatric Psychiatric: other (unresponsive) - Neurologic Neurologic: other (no gag, no corneal reflex, pupils not reactive) Results - Labs CBC & Chem 7: 07/12/16 04:00 07/12/16 04:00 Labs: Laboratory Last Values WBC 13.6 K/mm3 (4.5-11.0) H 07/12/16 04:00 RBC 4.07 M/mm3 (3.65-5.03) 07/12/16 04:00 Hgb 12.5 gm/dl (11.8-15.2) 07/12/16 04:00 Hct 38.2 % (35.5-45.6) 07/12/16 04:00 MCV 94 fl (84-94) 07/12/16 04:00 MCH 31 pg (28-32) 07/12/16 04:00 MCHC 33 % (32-34) 07/12/16 04:00 RDW 13.7 % (13.2-15.2) 07/12/16 04:00 Plt Count 110 K/mm3 (140-440) L 07/12/16 04:00 Lymph % (Auto) 14.9 % (13.4-35.0) 07/12/16 04:00 [place] % (Auto) 6.0 % (0.0-7.3) 07/12/16 04:00 Eos % (Auto) 0.8 % (0.0-4.3) 07/12/16 04:00 Baso % (Auto) 0.3 % (0.0-1.8) 07/12/16 04:00 Lymph # 2.0 K/mm3 (1.2-5.4) 07/12/16 04:00 [place] # 0.8 K/mm3 (0.0-0.8) 07/12/16 04:00 Eos # 0.1 K/mm3 (0.0-0.4) 07/12/16 04:00 Baso # 0.0 K/mm3 (0.0-0.1) 07/12/16 04:00 Add Manual Diff Complete 07/11/16 04:24 Total Counted 100 07/11/16 04:24 Seg Neutrophils % 78.0 % (40.0-70.0) H 07/12/16 04:00 Seg Neuts % (Manual) 43.0 % (40.0-70.0) 07/11/16 04:24 Band Neutrophils % 45.0 % 07/11/16 04:24 Lymphocytes % (Manual) 4.0 % (13.4-35.0) L 07/11/16 04:24 Reactive Lymphs % (Man) 0 % 07/11/16 04:24 Monocytes % (Manual) 8.0 % (0.0-7.3) H 07/11/16 04:24 Eosinophils % (Manual) 0 % (0.0-4.3) 07/11/16 04:24 Basophils % (Manual) 0 % (0.0-1.8) 07/11/16 04:24 Metamyelocytes % 0 % 07/11/16 04:24 Myelocytes % 0 % 07/11/16 04:24 Promyelocytes % 0 % 07/11/16 04:24 Blast Cells % 0 % 07/11/16 04:24 Nucleated RBC % Not Reportable 07/11/16 04:24 Seg Neutrophils # 10.6 K/mm3 (1.8-7.7) H 07/12/16 04:00 Seg Neutrophils # Man 7.6 K/mm3 (1.8-7.7) 07/11/16 04:24 Band Neutrophils # 8.0 K/mm3 07/11/16 04:24 Lymphocytes # (Manual) 0.7 K/mm3 (1.2-5.4) L 07/11/16 04:24 Abs React Lymphs (Man) 0.0 K/mm3 07/11/16 04:24 Monocytes # (Manual) 1.4 K/mm3 (0.0-0.8) H 07/11/16 04:24 Eosinophils # (Manual) 0.0 K/mm3 (0.0-0.4) 07/11/16 04:24 Basophils # (Manual) 0.0 K/mm3 (0.0-0.1) 07/11/16 04:24 Metamyelocytes # 0.0 K/mm3 07/11/16 04:24 Myelocytes # 0.0 K/mm3 07/11/16 04:24 Promyelocytes # 0.0 K/mm3 07/11/16 04:24 Blast Cells # 0.0 K/mm3 07/11/16 04:24 WBC Morphology Not Reportable 07/11/16 04:24 Hypersegmented Neuts Not Reportable 07/11/16 04:24 Hyposegmented Neuts Not Reportable 07/11/16 04:24 Hypogranular Neuts Not Reportable 07/11/16 04:24 Smudge Cells Not Reportable 07/11/16 04:24 Toxic Granulation Not Reportable 07/11/16 04:24 Toxic Vacuolation Not Reportable 07/11/16 04:24 Dohle Bodies Not Reportable 07/11/16 04:24 Pelger-Huet Anomaly Not Reportable 07/11/16 04:24 Lorenzo Rods Not Reportable 07/11/16 04:24 Platelet Estimate Appears decreased 07/11/16 04:24 Clumped Platelets Not Reportable 07/11/16 04:24 Plt Clumps, EDTA Not Reportable 07/11/16 04:24 Large Platelets Not Reportable 07/11/16 04:24 Giant Platelets Not Reportable 07/11/16 04:24 Platelet Satelliting Not Reportable 07/11/16 04:24 Plt Morphology Comment Not Reportable 07/11/16 04:24 RBC Morphology Not Reportable 07/11/16 04:24 Dimorphic RBCs Not Reportable 07/11/16 04:24 Polychromasia Not Reportable 07/11/16 04:24 Hypochromasia Not Reportable 07/11/16 04:24 Poikilocytosis Not Reportable 07/11/16 04:24 Anisocytosis Not Reportable 07/11/16 04:24 Microcytosis Not Reportable 07/11/16 04:24 Macrocytosis Not Reportable 07/11/16 04:24 Spherocytes Not Reportable 07/11/16 04:24 Pappenheimer Bodies Not Reportable 07/11/16 04:24 Sickle Cells Not Reportable 07/11/16 04:24 Target Cells Not Reportable 07/11/16 04:24 Tear Drop Cells Not Reportable 07/11/16 04:24 Ovalocytes Not Reportable 07/11/16 04:24 Helmet Cells Not Reportable 07/11/16 04:24 [place] Bodies Not Reportable 07/11/16 04:24 [place] Rings Not Reportable 07/11/16 04:24 [place] Cells Not Reportable 07/11/16 04:24 Bite Cells Not Reportable 07/11/16 04:24 Crenated Cell Not Reportable 07/11/16 04:24 Elliptocytes Not Reportable 07/11/16 04:24 Acanthocytes (Spur) Not Reportable 07/11/16 04:24 Rouleaux Not Reportable 07/11/16 04:24 Hemoglobin C Crystals Not Reportable 07/11/16 04:24 Schistocytes Not Reportable 07/11/16 04:24 Malaria parasites Not Reportable 07/11/16 04:24 ESR 9 mm/Hr (0-20) 07/10/16 02:22 Reese Bodies Not Reportable 07/11/16 04:24 Hem Pathologist Commnt No 07/11/16 04:24 PT 14.2 Sec. (12.2-14.9) 07/09/16 20:40 INR 1.11 (0.87-1.13) 07/09/16 20:40 APTT 24.4 Sec. (24.2-36.6) 07/09/16 20:40 POC ABG pH 7.389 (7.35-7.45) 07/12/16 05:16 POC ABG pCO2 34.7 (35-45) L 07/12/16 05:16 POC ABG pO2 82 (80-105) 07/12/16 05:16 POC ABG HCO3 20.9 07/12/16 05:16 POC ABG Total CO2 22 07/12/16 05:16 POC ABG O2 Sat 96 07/12/16 05:16 POC ABG Base Excess -4 07/12/16 05:16 FiO2 50 % 07/12/16 05:16 Sodium 144 mmol/L (137-145) 07/12/16 04:00 Potassium 3.4 mmol/L (3.6-5.0) L 07/12/16 04:00 Chloride 110.7 mmol/L (98-107) H 07/12/16 04:00 Carbon Dioxide 21 mmol/L (22-30) L 07/12/16 04:00 Anion Gap 16 mmol/L 07/12/16 04:00 BUN 20 mg/dL (9-20) 07/12/16 04:00 Creatinine 0.7 mg/dL (0.8-1.5) L 07/12/16 04:00 Estimated GFR > 60 ml/min 07/12/16 04:00 BUN/Creatinine Ratio 28.57 % 07/12/16 04:00 Glucose 98 mg/dL (75-100) 07/12/16 04:00 POC Glucose 93 (70-105) 07/12/16 05:30 Lactic Acid 2.60 mmol/L (0.7-2.0) H* 07/11/16 08:28 Calcium 7.9 mg/dL (8.4-10.2) L 07/12/16 04:00 Total Bilirubin 0.70 mg/dL (0.1-1.2) 07/11/16 04:24 Direct Bilirubin 0.2 mg/dL (0-0.2) 07/09/16 20:40 Indirect Bilirubin 0.6 mg/dL 07/09/16 20:40 AST 57 units/L (5-40) H 07/11/16 04:24 ALT 26 units/L (7-56) 07/11/16 04:24 Alkaline Phosphatase 53 units/L (35-129) 07/11/16 04:24 Ammonia 42.0 umol/L (25-60) 07/09/16 20:40 Troponin T < 0.010 ng/mL (0.00-0.029) 07/09/16 20:40 C-Reactive Protein 0.80 mg/dL (0.00-1.30) 07/10/16 02:22 Total Protein 5.8 g/dL (6.3-8.2) L 07/11/16 04:24 Albumin 3.0 g/dL (3.9-5) L 07/11/16 04:24 Albumin/Globulin Ratio 1.1 % 07/11/16 04:24 TSH 2.610 mlU/mL (0.270-4.200) 07/09/16 20:40 Urine Color Yellow (Yellow) 07/09/16 20:35 Urine Turbidity Clear (Clear) 07/09/16 20:35 Urine pH 6.0 (5.0-7.0) 07/09/16 20:35 Ur Specific [place] 1.015 (1.003-1.030) 07/09/16 20:35 Urine Protein 30 mg/dl mg/dL (Negative) 07/09/16 20:35 Urine Glucose (UA) 50 mg/dL (Negative) 07/09/16 20:35 Urine Ketones Tr mg/dL (Negative) 07/09/16 20:35 Urine Blood Mod (Negative) 07/09/16 20:35 Urine Nitrite Neg (Negative) 07/09/16 20:35 Urine Bilirubin Neg (Negative) 07/09/16 20:35 Urine Urobilinogen < 2.0 mg/dL (<2.0) 07/09/16 20:35 Ur Leukocyte Esterase Neg (Negative) 07/09/16 20:35 Urine WBC (Auto) 1.0 /HPF (0.0-6.0) 07/09/16 20:35 Urine RBC (Auto) 2.0 /HPF (0.0-6.0) 07/09/16 20:35 Urine Mucus Few /HPF 07/09/16 20:35 Vancomycin Trough 14.1 ug/mL (5.0-20.0) 07/11/16 10:57 Salicylates < 0.3 mg/dL (2.8-20.0) L 07/09/16 20:40 Urine Opiates Screen Presumptive negative 07/09/16 20:35 Urine Methadone Screen Presumptive negative 07/09/16 20:35 Acetaminophen < 15.0 ug/mL (10.0-30.0) 07/09/16 20:40 Ur Barbiturates Screen Presumptive negative 07/09/16 20:35 Ur Phencyclidine Scrn Presumptive negative 07/09/16 20:35 Ur Amphetamines Screen Presumptive negative 07/09/16 20:35 U Benzodiazepines Scrn Presumptive negative 07/09/16 20:35 Urine Cocaine Screen Presumptive negative 07/09/16 20:35 U Marijuana (THC) Screen Presumptive negative 07/09/16 20:35 Drugs of Abuse Note Disclamer 07/09/16 20:35 Plasma/Serum Alcohol < 0.01 gm% (0-0.07) 07/09/16 20:40 HIV 1&2 Antibody Rapid Non react (Non React) 07/10/16 02:22 HIV P24 Antigen Non react (Non React) 07/10/16 02:22 Blood Type AB POSITIVE 07/09/16 20:35 Antibody Screen TNR 07/09/16 20:35 ESDON Antibody Screen Negative 07/09/16 20:35
[2016-07-13] MEDS: LOPRESSOR IV SCH ×2 (02:00→13:39)
--- NOTE | 2016-07-13 04:35 | Consultation ---
This EEG shows a background rhythm of extremely low voltage activity. I do not see any clearcut cerebral activity being present on the tracing. The background tracing does not show any recognizable rhythm and ____ tracing do not show any recognizable cerebral activity. At this point, no spike wave foci are present. Some electrical artifact is noted which is probably electrical artifact. IMPRESSION: Markedly abnormal EEG. I cannot establish there is cerebral rhythm on this tracing, certainly no spike wave foci are noted or epileptiform discharges. Prognosis is not good. JOB# [id number] DALIA/NTS
[2016-07-13] MEDS: LEVOPHED 8 MG in NACL 0.9% 250ML 242 ML IV SCH ×3 (05:11→13:37)
[2016-07-13] MEDS: VANCOMYCIN 1,250 MG in NACL 0.9% 250ML 250 ML IV SCH ×2 (05:12→13:43)
[2016-07-13] MEDS: NACL 0.9% 1000 ML 1,000 ML IV SCH (05:13)
[2016-07-13 05:50] LABS: ISTAT Base Excess -6; ISTAT HCO3 20.7; ISTAT PCO2 40.9 (35-45); ISTAT PH 7.312 (7.35-7.45); ISTAT PO2 158 (80-105); ISTAT SO2 99; ISTAT TCO2 22
[2016-07-13] MEDS: PITRESSin 20 UNIT in NACL 0.9% 100 ML IV SCH ×2 (06:03→13:36)
--- NOTE | 2016-07-13 06:28 | Consultation ---
CODE NOTE: At around approximately 2:00 p.m., I was called by Dr. Parikh as a special request to do neurological consultation on the above patient, although I was not on the backup call at that time and agreed to see the patient as a stat consult. On my arrival to see the patient on , the patient had been moved to the ICU and was in the process of being transferred to a bed approximately 3:00 p.m. Initially, I saw the patient along with the PA for and the respiratory team and other nurses involved in the transfer process. I had the opportunity to speak for a long period of time to the nurse who was taking care of the patient that morning and in addition took a history directly from the mother and her . Earlier history provided to me indirectly is some degree incorrect. The patient initially became sick on 's 2016, which was 1 week ago and at that point, the patient had symptoms of upper respiratory tract infection, was seen [facility] than [facility]. He was not admitted, was placed on treatment for his upper respiratory tract infection and over the next several days, did not have any degree of improvement. He went back to the hospital 3 days later on a and at that point, he was once again evaluated in the Emergency Room, assessed and he was not admitted and was diagnosed subsequently as having a continued problem with infection, which was stated to be urinary tract infection. Over the next 24 hours, the patient's condition continued to worsen and then on Monday, the parents made the decision to transport him to [facility]. They were in the process of driving up [place] in the [place] area when he became unresponsive, began to have generalized seizures and EMS was consulted. Subsequent to that, he was admitted to [facility] that Monday. The following morning, according to the nurse who attended the patient, he was essentially unresponsive, not able to speak with poor respirations. He was treated with antibiotic therapy, which according to Dr. 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 When I was seeing the patient at that point, he was in the midst of a code due to respiratory distress and attempts were made to intubate him, initially by the respiratory therapist and then subsequently by . After the tube was placed, the tube placement was established with an x-ray machine and also colorimetry measuring CO2 content, I did observe that the contents of the pulmonary secretions were frothy, bright red, almost pinkish foam coming out of the lungs, which indicated to me that the patient was having profound respiratory distress. He was hypoxic at that time with a pCO2 of, what I was told was, 61 and his blood pressure were normal and he had elevated pulse rate at 140. He had been paralyzed during that point with a muscle relaxant and also with the propofol, so that he could be intubated. Therefore neurological assessment was really not possible to be made except that I did determine that he had equal and reactive pupils, but otherwise he was flaccid throughout because of the paralytic agent and the propofol and he was being ventilated at that point. From my estimation, the process was due to septic shock. I would not think that this would be a primary PAINT PREP TECHNICIAN process because he had minimum of one week illness, which was characterized as infectious, being seen 2 times in the Emergency Room and having antibiotic coverage provided. That would not seem as if it possibly could have been a PAINT PREP TECHNICIAN issue given his having 2 sequential examinations and his presenting symptoms being primarily adult respiratory distress syndrome with septic shock. The prognosis at this point is clearly not very good given the progressive nature of this illness. I did go and speak with the parents and advised them of the course of events. We will get an MRI scan, but I do not think that we are going to find anything that is going to change the course of this illness. JOB# [id number] DALIA/AARTI
[2016-07-13] MEDS: FLAGYL 500 MG/100 ML 500 MG/100 ML BAG IV SCH ×2 (06:29→13:43)
[2016-07-13] MEDS: ZOVIRAX IV SCH ×2 (06:32→13:43)
[2016-07-13] MEDS: NACL 0.9% IV SCH ×2 (06:32→13:43)
[2016-07-13] MEDS: DUONEB 0.5 MG-3 MG/3 ML SOLN IH SCH ×2 (07:46→16:21)
[2016-07-13] MEDS: KEPPRA 500 MG in D5W 100 ML IV SCH (09:01)
[2016-07-13] MEDS: PEPCID IV SCH (09:01)
--- NOTE | 2016-07-13 09:38 | Progress Note ---
Assessment and Plan - Patient Problems (1) Meningitis Current Visit: Yes Status: Acute Plan to address problem: 1. Presumptive. Will plan for 7 days of empiric treatment. 2. Stop date 07/17/16. (2) Cerebral herniation Current Visit: Yes Status: Acute Plan to address problem: 1. No expected recovery of brain function per assessment of neurologist. 2. Brain flow scan pending. Subjective Date of service: 07/13/16 Principal diagnosis: tonsillar herniation; presumptive meningitis Interval history: Remains in ICU. No brain activity noted. Objective - Exam Narrative Exam: intubated; brother/ friends at bedside - Constitutional Vitals: Vital Signs Temp Pulse Resp BP Pulse Ox 98.6 F 110 H 20 98/50 95 07/13/16 08:00 07/13/16 08:11 07/13/16 08:11 07/13/16 08:11 07/13/16 08:11 Temperature -Last 24 Hours Temperature 98.6 F Temperature 95.0 F Temperature 91.6 F Temperature 96.0 F Temperature 98.6 F Temperature 98.6 F - EENT Eyes: no conjunctival injection ENT: other (ET tube in place) - Respiratory Respiratory: bilateral: CTA, negative: rales, rhonchi - Cardiovascular Rhythm: regular Heart Sounds: Present: S1 & S2 Extremities: No edema - Integumentary Integumentary: warm, dry, no rash - Neurologic Neurologic: no moves all extremities, other (no spontaneous activity) - Labs CBC & Chem 7: 07/12/16 04:00 07/12/16 04:00 Labs: Abnormal lab results 07/13/16 Range/Units 04:51 POC ABG pH 7.312 L (7.35-7.45) POC ABG pO2 158 H (80-105) Microbiology 07/10/16 14:38 Peripheral/Venous Blood Culture - Preliminary NO GROWTH AFTER 48 HOURS 07/10/16 14:43 Peripheral/Venous Blood Culture - Preliminary NO GROWTH AFTER 48 HOURS 07/10/16 16:15 Tracheal Aspirate Sputum Culture - Final 07/11/16 10:42 Serum Cryptococcal Antigen - Final 07/09/16 20:35 Urine,Catheterized - Straight Catheter Urine Culture - Final NO GROWTH AFTER 48 HOURS Active Medications Acetaminophen (Tylenol) 650 mg PO Q4H PRN PRN Reason: Pain MILD(1-3)/Fever >100.5/GUTIERREZ Albuterol (Proventil) 2.5 mg IH Q6HRT PRN PRN Reason: Shortness Of Breath Last Admin: 07/12/16 00:27 Dose: 2.5 mg Albuterol/Ipratropium (Duoneb 0.5 Mg-3 Mg/3 Ml Soln) 1 ampul IH Q8HRT [facility] Last Admin: 07/13/16 07:46 Dose: 1 ampul Bisacodyl (Dulcolax) 10 mg NH QDAY PRN PRN Reason: Constipation unrelieved by MOM Famotidine (Pepcid) 20 mg IV BID [facility] Last Admin: 07/13/16 09:01 Dose: 20 mg Hydralazine HCl (Apresoline) 5 mg IV Q30MIN PRN PRN Reason: Hypertension Hydrophilic Ointment (Vaseline Lip Therapy) 1 applic TP Q2HR PRN PRN Reason: Dry Lips Acyclovir 770 mg/ Sodium (Chloride) 115.4 mls @ 100 mls/hr IV Q8HR [facility] PRN Reason: Protocol Last Admin: 07/13/16 06:32 Dose: 100 mls/hr Vancomycin HCl 1,250 mg/ (Sodium Chloride) 275 mls @ 166.667 mls/hr IV Q8H [facility] Last Admin: 07/13/16 05:12 Dose: 166.667 mls/hr Levetiracetam 500 mg/ Dextrose 105 mls @ 400 mls/hr IV Q12HR [facility] Last Admin: 07/13/16 09:01 Dose: 400 mls/hr Ceftriaxone Sodium (Rocephin/Ns 2 Gm/100 Ml) 2 gm in 100 mls @ 200 mls/hr IV Q12HR [facility] Last Admin: 07/12/16 22:00 Dose: 200 mls/hr Fentanyl Citrate (Fentanyl Drip Premix) 2,000 mcg in 100 mls @ 3.856 mls/hr IV TITR DANNY; 1 MCG/KG/HR PRN Reason: Protocol Propofol (Diprivan 10 Mg/Ml) 1,000 mg in 100 mls @ 2.313 mls/hr IV TITR DANNY; 5 MCG/KG/MIN PRN Reason: Protocol Last Titration: 07/11/16 10:30 Dose: 0 mcg/kg/min, 0 mls/hr Vasopressin 20 unit/ Sodium (Chloride) 101 mls @ 9.09 mls/hr IV TITR DANNY; 0.03 UNITS/MIN PRN Reason: Protocol Last Admin: 07/13/16 06:03 Dose: 0.04 units/min, 12.12 mls/hr Norepinephrine 8 mg/ Sodium (Chloride) 250 mls @ 3.75 mls/hr IV TITR DANNY; 2 MCG /MIN PRN Reason: Protocol Last Admin: 07/13/16 08:00 Dose: 30 mcg/min, 56.25 mls/hr Sodium Chloride (Nacl 0.9% 1000 Ml) 1,000 mls @ 150 mls/hr IV DIRECT DANNY Last Admin: 07/13/16 05:13 Dose: 150 mls/hr Metronidazole (Flagyl 500 Mg/100 Ml) 500 mg in 100 mls @ 100 mls/hr IV Q8HR DANNY Last Admin: 07/13/16 06:29 Dose: 100 mls/hr Lorazepam (Ativan) 2 mg IV Q4H PRN PRN Reason: Agitation Last Admin: 07/10/16 14:04 Dose: 2 mg Magnesium Hydroxide (Milk Of Magnesia) 30 ml PO Q4H PRN PRN Reason: Constipation Metoprolol Tartrate (Lopressor) 5 mg IV Q8H [facility] Last Admin: 07/13/16 02:00 Dose: Not Given Multi-Ingred Cream/Lotion/Oil/Oint (Artificial Tears Ophth Oint) 1 applic OU Q4HR PRN PRN Reason: Dry Eye(s) Ondansetron HCl (Zofran) 4 mg IV Q8H PRN PRN Reason: N/V unrelieved by Areli Vancomycin HCl (Vancomycin Pharmacy To Dose) 1 each IV PKCONSULT DANNY PRN Reason: Protocol - Imaging and cardiology Chest x-ray: report reviewed (slightly increased left lung infiltrate)
--- NOTE | 2016-07-13 09:49 | XRay Report ---
AP CHEST: HISTORY: Follow up respiratory failure The endotracheal tube, nasogastric tube and right arm PICC remain in good position. Patchy infiltrate throughout the left lung has increased by 25% since yesterday's exam. The right lung remains generally clear. Normal heart size. IMPRESSION: Slight increase in the left lung infiltrate.
--- NOTE | 2016-07-13 10:07 | Progress Note ---
Assessment and Plan - Patient Problems (1) Acute respiratory failure with hypoxia Current Visit: Yes Status: Acute Plan to address problem: No patient ventilator dysynchrony Brief episode of desaturations so FIO2 increased AC-VC 25/500/5/50% VAP and critical care bundles addressed. VTE and stress ulcer prophylaxis Aspiration precautions (2) Encephalopathy acute Current Visit: Yes Status: Acute Plan to address problem: MRI- indicative of anoxia with impending herniation. Neurology following (3) Cerebral herniation Current Visit: Yes Status: Acute Plan to address problem: Clinical signs at the time of my examination is consistent with probable herniation. I discussed this diagnosis with his sister. I will order MRI to evaluate cerebral perfusion, if this confirms brain , I had discussed with the sister that it means we will compassionately extubate. 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 and antibiotics for meningitis Droplet precautions per ID service ID following (6) Thrombocytopenia Current Visit: Yes Status: Acute Plan to address problem: Multifactorial Monitor for bleeding and trend counts (7) Acute systolic heart failure, first episode Current Visit: Yes Status: Acute Plan to address problem: Cardioprotective measures for now Possibly secondary to viral myocarditis Cardiology following Subjective Date of service: 07/13/16 Principal diagnosis: tonsillar herniation; presumptive meningitis Interval history: Very unfortunate young man- Developed headaches and symptoms suggestive of acute sinusitis, treated at ED with oral antibiotics. Discharged home without clinical improvement. Apparently vomited, with ongoing headaches and lethargy/alteration in his mental status/seizures- EMS activated. His was brought to the ED and required oral intubation with mechanical ventilatory support Seen and examined. Vitals, reviewed, medication, chart notes. Required increasing vasopressor support, hypothermic, bradycardic over the course of the day yesterday and overnight Remains completely unresponsive. Sister at the bedside- updated the need for evaluation of cerebral perfusion and brain determination. Objective Vital Signs - 12hr 07/12/16 07/12/16 07/12/16 22:11 22:21 22:30 Temperature Pulse Rate 128 H 126 H 128 H Pulse Rate [ Anterior Bilateral Throughout] Respiratory 20 20 20 Rate Respiratory Rate [Anterior Bilateral Throughout] Blood Pressure 133/100 140/97 122/84 O2 Sat by Pulse 99 99 99 Oximetry 07/12/16 07/12/16 07/12/16 22:41 22:51 23:00 Temperature Pulse Rate 125 H 125 H 124 H Pulse Rate [ Anterior Bilateral Throughout] Respiratory 20 20 20 Rate Respiratory Rate [Anterior Bilateral Throughout] Blood Pressure 122/84 117/83 113/79 O2 Sat by Pulse 99 99 99 Oximetry 07/12/16 07/12/16 07/12/16 23:11 23:21 23:26 Temperature Pulse Rate 126 H 123 H Pulse Rate [ 115 H Anterior Bilateral Throughout] Respiratory 20 20 Rate Respiratory 20 Rate [Anterior Bilateral Throughout] Blood Pressure 122/84 105/76 O2 Sat by Pulse 99 98 Oximetry 07/12/16 07/12/16 07/12/16 23:30 23:36 23:41 Temperature Pulse Rate 132 H 123 H 133 H Pulse Rate [ 117 H Anterior Bilateral Throughout] Respiratory 20 20 Rate Respiratory 20 Rate [Anterior Bilateral Throughout] Blood Pressure 88/56 113/79 88/56 O2 Sat by Pulse 97 99 97 Oximetry 07/12/16 07/13/16 07/13/16 23:51 00:00 00:11 Temperature Pulse Rate 131 H 127 H 122 H Pulse Rate [ Anterior Bilateral Throughout] Respiratory 20 20 20 Rate Respiratory Rate [Anterior Bilateral Throughout] Blood Pressure 82/50 77/48 77/48 O2 Sat by Pulse 98 99 99 Oximetry 07/13/16 07/13/16 07/13/16 00:21 00:30 00:41 Temperature 91.6 F L Pulse Rate 122 H 122 H 119 H Pulse Rate [ Anterior Bilateral Throughout] Respiratory 20 20 20 Rate Respiratory Rate [Anterior Bilateral Throughout] Blood Pressure 82/45 85/53 85/53 O2 Sat by Pulse 99 99 99 Oximetry 07/13/16 07/13/16 07/13/16 00:51 01:00 01:11 Temperature Pulse Rate 119 H 119 H 117 H Pulse Rate [ Anterior Bilateral Throughout] Respiratory 20 20 20 Rate Respiratory Rate [Anterior Bilateral Throughout] Blood Pressure 89/61 101/68 101/68 O2 Sat by Pulse 99 99 99 Oximetry 07/13/16 07/13/16 07/13/16 01:21 01:30 01:41 Temperature Pulse Rate 113 H 119 H 115 H Pulse Rate [ Anterior Bilateral Throughout] Respiratory 20 20 20 Rate Respiratory Rate [Anterior Bilateral Throughout] Blood Pressure 103/62 94/65 94/65 O2 Sat by Pulse 99 99 99 Oximetry 07/13/16 07/13/16 07/13/16 01:51 02:00 02:11 Temperature Pulse Rate 114 H 113 H 111 H Pulse Rate [ Anterior Bilateral Throughout] Respiratory 20 20 20 Rate Respiratory Rate [Anterior Bilateral Throughout] Blood Pressure 96/65 80/65 99/63 O2 Sat by Pulse 99 99 99 Oximetry 07/13/16 07/13/16 07/13/16 02:21 02:30 02:41 Temperature Pulse Rate 118 H 115 H 112 H Pulse Rate [ Anterior Bilateral Throughout] Respiratory 19 20 20 Rate Respiratory Rate [Anterior Bilateral Throughout] Blood Pressure 92/63 101/58 92/63 O2 Sat by Pulse 99 99 99 Oximetry 07/13/16 07/13/16 07/13/16 02:51 03:00 03:11 Temperature Pulse Rate 112 H 112 H 115 H Pulse Rate [ Anterior Bilateral Throughout] Respiratory 20 20 20 Rate Respiratory Rate [Anterior Bilateral Throughout] Blood Pressure 91/59 93/57 91/59 O2 Sat by Pulse 99 99 99 Oximetry 07/13/16 07/13/16 07/13/16 03:21 03:30 03:41 Temperature Pulse Rate 113 H 112 H 109 H Pulse Rate [ Anterior Bilateral Throughout] Respiratory 20 20 20 Rate Respiratory Rate [Anterior Bilateral Throughout] Blood Pressure 104/60 85/51 85/51 O2 Sat by Pulse 99 99 99 Oximetry 07/13/16 07/13/16 07/13/16 03:50 04:00 04:11 Temperature 95.0 F L Pulse Rate 111 H 109 H 112 H Pulse Rate [ Anterior Bilateral Throughout] Respiratory 20 20 20 Rate Respiratory Rate [Anterior Bilateral Throughout] Blood Pressure 85/47 85/47 85/47 O2 Sat by Pulse 99 99 100 Oximetry 07/13/16 07/13/16 07/13/16 04:21 04:30 04:41 Temperature Pulse Rate 110 H 108 H 108 H Pulse Rate [ Anterior Bilateral Throughout] Respiratory 20 20 20 Rate Respiratory Rate [Anterior Bilateral Throughout] Blood Pressure 96/50 89/47 89/47 O2 Sat by Pulse 99 99 99 Oximetry 07/13/16 07/13/16 07/13/16 04:51 04:52 05:00 Temperature Pulse Rate 113 H 109 H 116 H Pulse Rate [ Anterior Bilateral Throughout] Respiratory 20 20 Rate Respiratory Rate [Anterior Bilateral Throughout] Blood Pressure 79/40 79/40 97/54 O2 Sat by Pulse 98 99 97 Oximetry 07/13/16 07/13/16 07/13/16 05:11 05:21 05:30 Temperature Pulse Rate 115 H 113 H 114 H Pulse Rate [ Anterior Bilateral Throughout] Respiratory 20 20 20 Rate Respiratory Rate [Anterior Bilateral Throughout] Blood Pressure 97/54 87/46 87/43 O2 Sat by Pulse 97 97 97 Oximetry 07/13/16 07/13/16 07/13/16 05:41 05:51 06:00 Temperature Pulse Rate 114 H 111 H 112 H Pulse Rate [ Anterior Bilateral Throughout] Respiratory 20 20 20 Rate Respiratory Rate [Anterior Bilateral Throughout] Blood Pressure 87/43 79/42 116/77 O2 Sat by Pulse 96 98 97 Oximetry 07/13/16 07/13/16 07/13/16 06:11 06:21 06:30 Temperature Pulse Rate 110 H 109 H 112 H Pulse Rate [ Anterior Bilateral Throughout] Respiratory 20 20 20 Rate Respiratory Rate [Anterior Bilateral Throughout] Blood Pressure 116/77 110/69 103/62 O2 Sat by Pulse 97 97 97 Oximetry 07/13/16 07/13/16 07/13/16 06:41 06:51 07:00 Temperature Pulse Rate 107 H 110 H 111 H Pulse Rate [ Anterior Bilateral Throughout] Respiratory 20 20 20 Rate Respiratory Rate [Anterior Bilateral Throughout] Blood Pressure 116/77 103/57 95/55 O2 Sat by Pulse 97 97 96 Oximetry 07/13/16 07/13/16 07/13/16 07:11 07:21 07:30 Temperature Pulse Rate 112 H 111 H 108 H Pulse Rate [ Anterior Bilateral Throughout] Respiratory 20 20 20 Rate Respiratory Rate [Anterior Bilateral Throughout] Blood Pressure 95/55 92/52 99/49 O2 Sat by Pulse 96 96 96 Oximetry 07/13/16 07/13/16 07/13/16 07:38 07:41 07:46 Temperature Pulse Rate 110 H 112 H Pulse Rate [ 108 H Anterior Bilateral Throughout] Respiratory 20 Rate Respiratory 20 Rate [Anterior Bilateral Throughout] Blood Pressure 99/49 99/49 O2 Sat by Pulse 96 96 Oximetry 07/13/16 07/13/16 07/13/16 07:51 08:00 08:03 Temperature 98.6 F Pulse Rate 110 H 111 H Pulse Rate [ 110 H Anterior Bilateral Throughout] Respiratory 20 20 Rate Respiratory 20 Rate [Anterior Bilateral Throughout] Blood Pressure 80/39 98/50 O2 Sat by Pulse 94 95 Oximetry 07/13/16 08:11 Temperature Pulse Rate 110 H Pulse Rate [ Anterior Bilateral Throughout] Respiratory 20 Rate Respiratory Rate [Anterior Bilateral Throughout] Blood Pressure 98/50 O2 Sat by Pulse 95 Oximetry Constitutional: no acute distress Eyes: non-icteric, other (fixed dialted pupils, no pupillary reaction to light) ENT: oropharynx moist Neck: supple Effort: normal, other (no breaths above the set rate on the ventilator) Ascultation: Bilateral: diminished breath sounds Cardiovascular: regular rate and rhythm Gastrointestinal: normoactive bowel sounds, soft, non-tender, non-distended Integumentary: normal Extremities: no cyanosis, no edema, pulses normal Neurologic: other (unresponsive, no gag or cough reflex on deep endotracheal tube suctioning.) CBC and BMP: 07/12/16 04:00 07/12/16 04:00 ABG, PT/INR, D-dimer: ABG POC ABG pH 7.312 (7.35-7.45) L 07/13/16 04:51 POC ABG pCO2 40.9 (35-45) 07/13/16 04:51 POC ABG pO2 158 (80-105) H 07/13/16 04:51 POC ABG HCO3 20.7 07/13/16 04:51 POC ABG Total CO2 22 07/13/16 04:51 POC ABG O2 Sat 99 07/13/16 04:51 PT/INR, D-dimer PT 14.2 Sec. (12.2-14.9) 07/09/16 20:40 INR 1.11 (0.87-1.13) 07/09/16 20:40 Abnormal lab findings: Abnormal Labs 07/10/16 07/10/16 07/10/16 14:36 14:36 14:55 WBC RDW 13.0 L Plt Count Seg Neutrophils % Lymphocytes % (Manual) Monocytes % (Manual) Seg Neutrophils # Lymphocytes # (Manual) Monocytes # (Manual) POC ABG pH 7.453 H POC ABG pCO2 34.2 L POC ABG pO2 28 L Sodium 131 L Potassium Chloride 93.8 L Carbon Dioxide Creatinine 0.5 L Glucose 149 H POC Glucose Lactic Acid Calcium AST Total Protein Albumin 07/10/16 07/11/16 07/11/16 17:49 04:23 04:24 WBC 17.7 H RDW Plt Count 128 L Seg Neutrophils % Lymphocytes % (Manual) 4.0 L Monocytes % (Manual) 8.0 H Seg Neutrophils # Lymphocytes # (Manual) 0.7 L Monocytes # (Manual) 1.4 H POC ABG pH POC ABG pCO2 POC ABG pO2 124 H Sodium Potassium Chloride Carbon Dioxide Creatinine Glucose POC Glucose Lactic Acid 2.60 H* Calcium AST Total Protein Albumin 07/11/16 07/11/16 07/11/16 04:24 04:50 08:28 WBC RDW Plt Count Seg Neutrophils % Lymphocytes % (Manual) Monocytes % (Manual) Seg Neutrophils # Lymphocytes # (Manual) Monocytes # (Manual) POC ABG pH POC ABG pCO2 33.3 L POC ABG pO2 79 L Sodium Potassium Chloride Carbon Dioxide 20 L Creatinine Glucose 123 H POC Glucose Lactic Acid 2.60 H* Calcium 8.1 L AST 57 H Total Protein 5.8 L Albumin 3.0 L 07/11/16 07/11/16 07/11/16 15:31 21:09 22:22 WBC RDW Plt Count Seg Neutrophils % Lymphocytes % (Manual) Monocytes % (Manual) Seg Neutrophils # Lymphocytes # (Manual) Monocytes # (Manual) POC ABG pH POC ABG pCO2 POC ABG pO2 Sodium Potassium Chloride Carbon Dioxide Creatinine Glucose POC Glucose 129 H 134 H 140 H Lactic Acid Calcium AST Total Protein Albumin 07/12/16 07/12/16 07/12/16 00:12 04:00 04:00 WBC 13.6 H RDW Plt Count 110 L Seg Neutrophils % 78.0 H Lymphocytes % (Manual) Monocytes % (Manual) Seg Neutrophils # 10.6 H Lymphocytes # (Manual) Monocytes # (Manual) POC ABG pH POC ABG pCO2 POC ABG pO2 Sodium Potassium 3.4 L Chloride 110.7 H Carbon Dioxide 21 L Creatinine 0.7 L Glucose POC Glucose 119 H Lactic Acid Calcium 7.9 L AST Total Protein Albumin 07/12/16 07/13/16 05:16 04:51 WBC RDW Plt Count Seg Neutrophils % Lymphocytes % (Manual) Monocytes % (Manual) Seg Neutrophils # Lymphocytes # (Manual) Monocytes # (Manual) POC ABG pH 7.312 L POC ABG pCO2 34.7 L POC ABG pO2 158 H Sodium Potassium Chloride Carbon Dioxide Creatinine Glucose POC Glucose Lactic Acid Calcium AST Total Protein Albumin Allied health notes reviewed: RT
[2016-07-13] MEDS ORDERED: NEO-SYNEPHRINE 100 MG in NACL 0.9% 90 ML IV SCH (10:30)
[2016-07-13] MEDS: ROCEPHIN/NS 2 GM/100 ML 2 GM/100 ML BAG IV SCH (10:47)
--- NOTE | 2016-07-13 11:38 | Progress Note ---
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 Acute seizure disorder Acute respiratory failure - intubated. Severe cardiomyopathy - EF 10 - 15%. Sinus tachycardia Meningitis - presumptive diagnosis per ID. Hypotension - requiring pressors. Hypokalemia Leukocytosis Lactic acidosis Plan: For NM brain blood flow scan today per neurology. Cont current medical and supportive management. Prognosis is guarded. Assessment and plan reviewed with pt's family at bedside. They are to discuss pt 's code status. The patient has been seen in conjunction with Dr. Guadalupe who agrees with the assessment and plan of care. Subjective Date of service: 07/13/16 Principal diagnosis: tonsillar herniation; presumptive meningitis Interval history: Pt remains intubated, nonresponsive to any stimuli, pupils dilated and fixed, off sedation. Vaso and levo gtt infusing. In ST on tele, hypotensive. Family at bedside. Objective Last Vital Signs Temp 98.6 F 07/13/16 08:00 Pulse 115 H 07/13/16 11:29 Resp 20 07/13/16 10:11 BP 98/51 07/13/16 11:29 Pulse Ox 95 07/13/16 11:29 - Physical Examination General: Other (intubated, nonresponsive) HEENT: Positive: PERRL Neck: Positive: neck supple, trachea midline Cardiac: Positive: Regular Rhythm, S1/S2, Tachycardia Lungs: Positive: Decreased Breath Sounds, Oxygen, Ventilated Respirations Neuro: Positive: Other (nonresponsive; pupils dilated and fixed) Abdomen: Positive: Soft, Active Bowel Sounds Skin: Positive: Clear. Negative: Rash, Wound Musculoskeletal: No Fluid Collection, No Pain, Normal Range of Motion Extremities: Present: upper extr. pulses, lower extr. pulses. Absent: edema - Imaging and Cardiology EKG: report reviewed, image reviewed Echo: report reviewed - Telemetry EKG Rhythm: Sinus Tachycardia - Allied health notes Allied health notes reviewed: RT
--- NOTE | 2016-07-13 13:48 | Nuclear Medicine Report ---
Nuclear medicine brain flow study. History: Anoxic injury, clinical signs of brain . Procedure and findings: The study was performed after the intravenous injection of 20 mCi of technetium 99 pertechnetate. On both the flow and delayed static images, there is no evidence of intracranial activity. Impression: No intracranial blood flow. Comment: The results of this study were given as to the patient's nurse in [facility] at 1:45 PM on July 13, 2016.
[2016-07-13 16:54] VITALS: BP 94/61
--- NOTE | 2016-07-13 18:40 | Death Note ---
Note Date of : 07/13/16 Time of : 18:07 Time Pronounced: 18:15 - Preliminary Cause of (problem) (1) Cerebral herniation Preliminary cause of (2) Acute respiratory failure with hypoxia Preliminary cause of
--- NOTE | 2016-07-13 18:47 | Death Summary ---
Summary - Providers Date of service: 07/13/16 Consults: 07/10/16 02:16 Consult to Interventional Radiology [CONS] Routine Consulting Provider: PATTY WONG Reason For Exam: Lumbar Puncture Place consult to:: dr. wong/ ele Notified:: answering service Phone number called:: [phone] Was contact made?: Yes If yes, spoke with:: en Time called:: 07:43 07/10/16 13:54 Consult to Physician [CONS] Routine Consulting Provider: NANCY CARSON Reason For Exam: AMS Place consult to:: neurology Notified:: answering service Phone number called:: Was contact made?: Yes If yes, spoke with:: henrietta Canas called:: 14:00 Comment:: dr. grande stated to call it stat 07/10/16 13:56 Consult to Physician [CONS] Routine Consulting Provider: WANG VELASCO Reason For Exam: possible meningitis Place consult to:: callisthenics instructor ID Notified:: dr. velasco Phone number called:: [phone] Was contact made?: Yes If yes, spoke with:: dr. mirtha long Time called:: 14:07 Comment:: dr. grande 07/10/16 15:46 Consult to Dietitian/Nutrition [CONS] Routine Physician Instructions: Reason For Exam: Reason for Consult: Evaluate nutritional intake 07/10/16 18:07 Consult to PICC Line RN [CONS] Urgent Reason For Exam: PICC insertion, on pressors Type Line:: PICC 07/10/16 22:07 Consult to Physician [CONS] Routine Consulting Provider: DU MAURER Reason For Exam: AMS Place consult to:: Dr. Cronin Notified:: yes Comment:: already seen patient 07/11/16 10:53 Consult to Physician [CONS] Routine Consulting Provider: LAURA FORD Reason For Exam: shock Place consult to:: [facility] Notified:: yes Was contact made?: Yes If yes, spoke with:: Dr. Ford Time called:: 11:06 Comment:: Dr. Ford at bedside Attending: VINCE LEE - summary Date of admission: 07/10/16 02:14 Date of : 07/13/16 Reason for admission: unresponsiveness Significant findings: 25 yo AAM with no past medical history started to have headaches and upper respiratory symptoms about a week ago; presented to different ERs and was prescibed antibiotics, but his condition worsened progressively, became unresponsive and had a seizure and possible hematemesis per his family report; EMS was called and brought him to the hospital. Found to have acute respiratory failure, acute encephalopathy and shock. Intubated, started on vasopressors, antibiotiics and antivirals for presumptive meningitis/encephalitis. CC, Cardiology, ID, Neurology were following. Rapidly declined and lost reflexes. MRI brain showed extensive global ischemia, hypoxic injury and impending cerebellar tonsillar herniation; then, MRA head obtained and showed bilateral ICA occlussion with [place] not identified. It these conditions, LP was impossible to be obtained; all serologies, including HIV, Hepatitis panel as well as, cripto antigen have been negative. Ultimately, brain flow study obtained and showed no brain activity. Meeting with extended family held and they were informed about the brain diagnosis; decided to withdraw care, but before that, patient went in asystole and was pronounced. Diagnoses: 1. Cerebral herniation 2. Presumptive meningitis/encephalitis 3. Acute encephalopathy 4. Acute hypoxic respiratory failure 5. Acute systolic heart failure 6. Shock 7. Sepsis 8. Seizure 9. Hypokalemia 10. Thrombocytopneia Pertinent studies: Chest x-rays Abdominal x-rays CT abdomen/pelvis Echocardiogram CT head MRI brain MRA head Brain Flow Nuclear Medicine
--- NOTE | 2016-07-13 20:24 | Event Note ---
Date: 07/13/16 Results of MRI f cranial perfusion was discussed with the sister over the phone. She wants him extubated, however the decline is rapid and did let her know that he will soon. Discussed this extensively with the RN taking care of him. Pari had been notified of his brain diagnosis. I have also requested an autopsy given the rapidity of decline and the fact we still do not have a definitive diagnosis.
== END 2016-07-13 18:07 | DRG 871 ==
LOC: ED 20:03 → 3A 07-10 02:14 → CC1 07-10 14:48
PROVIDERS: ADMIT Internal Medicine; ATTEND Internal Medicine
PROC: 4A033R1 Measurement of Arterial Saturation, Peripheral, Percutaneous Approach (ICD-10-PCS; principal; 2016-07-10)
PROC: 5A1945Z Respiratory Ventilation, 24-96 Consecutive Hours (ICD-10-PCS; 2016-07-10)
PROC: 0BH17EZ Insertion of Endotracheal Airway into Trachea, Via Natural or Artificial Opening (ICD-10-PCS; 2016-07-10)
DX: A41.9 Sepsis, unspecified organism (principal); J96.00 Acute respiratory failure, unspecified whether with hypoxia or hypercapnia; G93.40 Encephalopathy, unspecified; J69.0 Pneumonitis due to inhalation of food and vomit; G03.9 Meningitis, unspecified; G93.5 Compression of brain; I50.21 Acute systolic (congestive) heart failure; E87.2 Acidosis; K92.0 Hematemesis; G93.1 Anoxic brain damage, not elsewhere classified; I42.9 Cardiomyopathy, unspecified; R65.20 Severe sepsis without septic shock; G40.909 Epilepsy, unspecified, not intractable, without status epilepticus; D69.6 Thrombocytopenia, unspecified; E87.6 Hypokalemia; Z87.891 Personal history of nicotine dependence; Z82.49 Family history of ischemic heart disease and other diseases of the circulatory system
CPT/HCPCS: 36415; 36600; 70450; 70544; 70551; 71010; 74000; 74177; 78601; 80048; 80053; 80074; 80202; 80307; 80320; 81001; 82140; 82803; 82962; 84443; 84484; 85007; 85025; 85027; 85610; 85652; 85730; 86140; 86403; 86850; 86900; 86901; 87040; 87070; 87086; 87205; 87529; 87806; 93005; 93010; 93306; 94002; 94003; 94640; 94760; 95819; 96361; 96374; 96376; A9512; C9113; G0480; J0133; J0696; J1953; J2060; J2370; J2704; J3370; J3480; J7030; J7040; J7050; Q9967